=== PATIENT | male | born 1955 | race Caucasian/White ===

== ENCOUNTER → 2016-08-07 | Outpatient (REF) | payer MEDICARE, MEDICAID ==
[~2016-08-07] MED LIST: /ESOM40CA OR; /ESOM40CA PO; /HCTZ25TA PO; /RANI15TA PO; ACET650S3 PO; ADV100INH INH; ARTIDRO OP; BABY81CH OR; BISO10TA2 PO; BISO10TA6 PO; BISO5TAB54 PO; CALCCHW12 OR; CALCTAB68 PO; CETI10TA PO; DICY10CA2 OR; DIOV160T2 PO; DIOV160T5 OR; DOCU PO; DOXE25CA2 OR; DOXE25CA3 PO; FLEX10TA2 PO; FLUT50SP; GABA250S PO; GABA400C PO; GLIP10TA97 OR; GLUC1TAB6 PO; LOTE0.5O OU; MAGN400C2 PO; MAGN500T2 PO; MELOPOW PO; META800T82 PO; MULTCAP11 PO; MULTIVIT PO; NEUR300C PO; OXYC5TAB2 PO; PROAAER IN; PROC2.5C PR; RANI150C OR; REST0.05 OU; SALI0.653; SING10TA31 OR; SING5CHW PO; TRAM100T13 PO; TRAM50TA2 OR; TRIC145T19 PO; TUMS500C PO; TYLE325T5 PO; ULTR50TA PO; VENTAER IN; WARF10TA15 PO; XARE20TA PO; [UNRECOGNIZED DRUG - CODE] PO; [UNRECOGNIZED DRUG - CODE] PO; doc-q-lace PO; janumet PO; magnesium sulfate
== END ==
LOC: M LAB REF 14:48
PROVIDERS: ATTEND Internal Medicine Gastroenterology
DX: R19.7 Diarrhea, unspecified (principal)

== ENCOUNTER 2017-02-16 23:51 | Emergency (ER) | payer MEDICAID, MEDICARE ==
[~2017-02-16] VITALS: Ht 177.8 cm; Wt 96.4 kg
[2017-02-16 23:51] VITALS: BP 148/84
[2017-02-17] MEDS ORDERED: NORCO, ANEXSIA 5/325MG TABLET (HYDROcodone/ACETAMINOPHEN) PO ONE (01:00)
[2017-02-17 01:22] LABS: BASO % 0.3 % (0.0-1.0); EOS # 0.4 K/mm3 (0.0-0.50); EOS % 4.4 % (0.0-3.0); LARGE UNSTAINED CELL # 0.2 K/mm3 (0.0-0.4); LARGE UNSTAINED CELL % 1.5 % (0.0-4.0); LYMPH # 1.6 K/mm3 (1.5-4.5); LYMPH % 16.6 % (24.0-44.0); MEAN CORPUSCULAR HEMOGLOBIN 29.7 pg (27.0-33.0); MEAN CORPUSCULAR HGB CONC 33.9 g/dl (32.0-36.5); MEAN CORPUSCULAR VOLUME 87.8 fl (80.0-96.0); MONO # 0.6 K/mm3 (0.0-0.8); MONO % 5.9 % (0.0-5.0); NEUTROPHILS # 6.9 K/mm3 (1.8-7.7); NEUTROPHILS % 71.4 % (36.0-66.0); PLATELET COUNT, AUTOMATED 473 k/mm3 (150-450); RED CELL DISTRIBUTION WIDTH 12.6 % (11.5-14.5); WHITE BLOOD COUNT 9.7 K/mm3 (4.0-10.0)
[2017-02-17 01:37] LABS: ERYTHROCYTE SEDIMENTATION RATE 98 mm/hr (0-20)
[2017-02-17 01:46] LABS: ALBUMIN 3.6 GM/DL (3.2-5.2); ALBUMIN/GLOBULIN RATIO 0.73 (1.00-1.93); ALKALINE PHOSPHATASE 76 U/L (45-117); ALT/SGPT 22 U/L (12-78); ANION GAP 7 MEQ/L (8-16); AST/SGOT 8 U/L (15-37); BILIRUBIN,DIRECT < 0.1 MG/DL (0.0-0.2); BILIRUBIN,TOTAL 0.4 MG/DL (0.2-1.0); BLOOD UREA NITROGEN 26 MG/DL (7-18); CALCIUM LEVEL 9.6 MG/DL (8.8-10.2); CARBON DIOXIDE LEVEL 29 MEQ/L (21-32); CHLORIDE LEVEL 100 MEQ/L (98-107); CREATININE FOR GFR 1.04 MG/DL (0.70-1.30); GLOMERULAR FILTRATION RATE > 60.0 (>49); GLUCOSE, FASTING 233 MG/DL (80-110); POTASSIUM SERUM 3.7 MEQ/L (3.5-5.1); SODIUM LEVEL 136 MEQ/L (136-145); TOTAL PROTEIN 8.5 GM/DL (6.4-8.2)
[2017-02-17 01:59] LABS: MAGNESIUM LEVEL 1.7 MG/DL (1.8-2.4)
[2017-02-17] MEDS ORDERED: INDO50CA PO (02:01)
[2017-02-17] MEDS ORDERED: BENA25CA4 PO (02:07)
[2017-02-19 00:06] LABS: Lyme Disease IgG/IgM Antibodie <0.91 ISR (0.00-0.90); Lyme Disease IgM Ab Quantitati <0.80 index (0.00-0.79)
== END 2017-02-17 02:08 | disposition home or self-care (01) ==
LOC: M ED 23:51
DX: D64.9 Anemia, unspecified (principal); M25.50 Pain in unspecified joint; M79.1 Myalgia; R53.83 Other fatigue; Z79.899 Other long term (current) drug therapy; Z79.51 Long term (current) use of inhaled steroids; Z79.891 Long term (current) use of opiate analgesic; Z88.1 Allergy status to other antibiotic agents; Z88.5 Allergy status to narcotic agent; Z88.0 Allergy status to penicillin; Z88.2 Allergy status to sulfonamides

== ENCOUNTER → 2017-03-12 | Outpatient (REF) | payer MEDICARE ==
[~2017-03-12] MED LIST changes: +BENA25CA4 PO; +INDO50CA PO
== END ==
LOC: M LAB REF 12:27
PROVIDERS: ATTEND Internal Medicine
DX: M79.1 Myalgia (principal); Z11.59 Encounter for screening for other viral diseases; R79.82 Elevated C-reactive protein (CRP); M25.50 Pain in unspecified joint

== ENCOUNTER → 2017-04-03 | Outpatient (REF) | payer MEDICARE | LOC: M LAB REF 17:34 | PROVIDERS: ATTEND Internal Medicine | DX: M79.1 Myalgia (principal); R79.82 Elevated C-reactive protein (CRP); Z11.59 Encounter for screening for other viral diseases ==

== ENCOUNTER → 2017-05-28 | Outpatient (REF) | payer MEDICARE | LOC: M LAB REF 12:21 | PROVIDERS: ATTEND Internal Medicine | DX: R79.82 Elevated C-reactive protein (CRP) (principal) ==

== ENCOUNTER 2017-09-24 11:47 | Emergency (ER) | payer MEDICARE ==
[2017-09-24] MEDS: diazePAM 5 MG TAB PO (13:45)
[2017-09-24] MEDS: MORPHINE 2 MG/ML 1ML SYRINGE (J2270) IM (13:46)
== END 2017-09-24 15:00 | disposition home or self-care (01) ==
LOC: M ED 11:47
DX: M50.30 Other cervical disc degeneration, unspecified cervical region (principal); E11.9 Type 2 diabetes mellitus without complications; I10 Essential (primary) hypertension; M06.9 Rheumatoid arthritis, unspecified; F41.9 Anxiety disorder, unspecified; F33.9 Major depressive disorder, recurrent, unspecified; Z86.711 Personal history of pulmonary embolism; Z79.899 Other long term (current) drug therapy; Z79.51 Long term (current) use of inhaled steroids; Z88.0 Allergy status to penicillin; Z88.1 Allergy status to other antibiotic agents; Z88.2 Allergy status to sulfonamides; Z88.5 Allergy status to narcotic agent
CPT/HCPCS: J2270

== ENCOUNTER 2018-05-10 13:58 | Emergency (ER) | payer MEDICARE ==
[2018-05-10] MEDS: CLINDAMYCIN 150 MG CAP PO (15:23)
[2018-05-10] MEDS: ONDANSETRON 4 MG ORAL DISINTEGRATING TAB (Q0162 PER 1MG) PO (15:23)
== END 2018-05-10 15:25 | disposition home or self-care (01) ==
LOC: M ED 13:58
DX: K02.9 Dental caries, unspecified (principal); R51 Headache; I10 Essential (primary) hypertension; E11.9 Type 2 diabetes mellitus without complications; E78.00 Pure hypercholesterolemia, unspecified; K21.9 Gastro-esophageal reflux disease without esophagitis; K58.9 Irritable bowel syndrome, unspecified; F33.9 Major depressive disorder, recurrent, unspecified; F41.9 Anxiety disorder, unspecified
CPT/HCPCS: Q0162

== ENCOUNTER → 2018-05-18 | Outpatient (REF) | payer MEDICARE | LOC: M LAB REF 10:39 | DX: R19.7 Diarrhea, unspecified (principal) ==

== ENCOUNTER → 2018-05-21 | Outpatient (REF) | payer MEDICARE | LOC: M LAB REF 15:37 | DX: R19.7 Diarrhea, unspecified (principal) | CPT/HCPCS: 87493 ==

== ENCOUNTER → 2018-06-10 | Outpatient (REF) | payer MEDICARE ==
[2018-06-16 14:17] LABS: FATS NEUTRAL Normal (.); FATS TOTAL Normal (.); O+P EXAM Final report (.)
== END ==
LOC: M LAB REF 15:51
DX: R19.7 Diarrhea, unspecified (principal)
CPT/HCPCS: 87177

== ENCOUNTER → 2018-08-25 | Outpatient (REF) | payer MEDICARE ==
[~2018-08-25] MED LIST changes: +CLEO300C2 PO; +JANU50TA8 PO; +JARD1TAB PO; +LOSA100T50 PO; +MELO7.5T7; +METH2.5T48 PO; +MONT10TA2 PO; +NORCOTAB PO; +OMEG1CAP16 PO; +PRED5TA PO; +ROSU10TA5 PO; +VALI5TAB PO; +ZOFR4TAB14 PO
[2018-08-25 13:54] LABS: HEMOGLOBIN 10.9 g/dl (13.5-17.5); MEAN CORPUSCULAR HEMOGLOBIN 27.5 pg (27.0-33.0); MEAN CORPUSCULAR HGB CONC 31.1 g/dl (32.0-36.5); MEAN CORPUSCULAR VOLUME 88.2 fl (80.0-96.0); PLATELET COUNT, AUTOMATED 315 10^3/uL (150-450); RED BLOOD COUNT 3.97 10^6/uL (4.30-6.10); WHITE BLOOD COUNT 7.9 10^3/uL (4.0-10.0)
== END ==
LOC: M LAB REF 13:30
PROVIDERS: ATTEND Internal Medicine
DX: D64.9 Anemia, unspecified (principal)

== ENCOUNTER 2019-01-03 21:17 | Emergency (ER) | payer MEDICARE ==
[~2019-01-03] VITALS: Ht 177.8 cm; Wt 79.5 kg
[~2019-01-03 21:17] MED LIST changes: -/ESOM40CA OR; -/ESOM40CA PO; -/HCTZ25TA PO; -/RANI15TA PO; +HYDR-3644 PO; +HYDR-3715 PO; -INDO50CA PO; +INDO50CA11 PO; +NEXI1CAP3 OR; +NEXI1CAP3 PO; -NORCOTAB PO; +RANI1TAB17 PO; -ROSU10TA5 PO; +ROSU10TA6 PO
[2019-01-03 21:18] VITALS: BP 139/67
[2019-01-03] MEDS ORDERED: PROAAER10 (21:28)
[2019-01-03] MEDS ORDERED: BISO5TAB5 (21:28)
[2019-01-03] MEDS ORDERED: GLIP10TA6 (21:28)
[2019-01-03] MEDS ORDERED: MELO7.5T35 (21:28)
[2019-01-03] MEDS ORDERED: GABA600T4 (21:28)
[2019-01-03] MEDS ORDERED: NEXI40CA (21:28)
[2019-01-03] MEDS ORDERED: DOXE50CA (21:28)
[2019-01-03] MEDS ORDERED: FERR324T2 (21:28)
[2019-01-03] MEDS ORDERED: RANI150T14 (21:28)
[2019-01-03] MEDS ORDERED: QC A650T3 PO (22:35)
[2019-01-03] MEDS ORDERED: ACETAMINOPHEN 325 MG TAB PO ONE (22:45)
== END 2019-01-03 22:51 | disposition home or self-care (01) ==
LOC: M ED 21:17
DX: K02.9 Dental caries, unspecified (principal); K08.89 Other specified disorders of teeth and supporting structures; Z86.19 Personal history of other infectious and parasitic diseases; Z79.84 Long term (current) use of oral hypoglycemic drugs; Z79.899 Other long term (current) drug therapy; Z88.0 Allergy status to penicillin; Z88.2 Allergy status to sulfonamides; Z88.5 Allergy status to narcotic agent; Z88.1 Allergy status to other antibiotic agents; Z88.8 Allergy status to other drugs, medicaments and biological substances

== ENCOUNTER → 2019-02-26 | Outpatient (REF) | payer MEDICARE ==
[~2019-02-26] MED LIST changes: +BISO5TAB5; +DOXE50CA; +FERR324T2; +GABA600T4; +GLIP10TA6; -INDO50CA11 PO; +INDO50CA91 PO; +MELO7.5T35; +NEXI40CA; +PROAAER10; +QC A650T3 PO; +RANI150T14
[2019-02-26 15:55] LABS: BLOOD UREA NITROGEN 22 MG/DL (7-18); CALCIUM LEVEL 9.5 MG/DL (8.8-10.2); CARBON DIOXIDE LEVEL 29 MEQ/L (21-32); CHLORIDE LEVEL 105 MEQ/L (98-107); CHOLESTEROL LEVEL 157 MG/DL (<200); GLOMERULAR FILTRATION RATE > 60.0 (>49); GLUCOSE, FASTING 108 MG/DL (70-100); HDL CHOLESTEROL 47 MG/DL (>40); LDL CHOLESTEROL 54 MG/DL (<100); MAGNESIUM LEVEL 2.2 MG/DL (1.8-2.4); NON-HDL-C 110 MG/DL; POTASSIUM SERUM 4.9 MEQ/L (3.5-5.1); SODIUM LEVEL 139 MEQ/L (136-145); TRIGLYCERIDES LEVEL 278 MG/DL (<150)
[2019-02-26 16:04] LABS: BASO # 0.1 10^3/uL (0.0-0.2); BASO % 0.6 % (0.0-1.0); EOS % 0.3 % (0.0-3.0); HEMATOCRIT 40.8 % (42.0-52.0); HEMOGLOBIN 12.6 g/dl (13.5-17.5); LYMPH % 9.5 % (24.0-44.0); MEAN CORPUSCULAR HEMOGLOBIN 28.6 pg (27.0-33.0); MEAN CORPUSCULAR HGB CONC 30.9 g/dl (32.0-36.5); MEAN CORPUSCULAR VOLUME 92.7 fl (80.0-96.0); MONO # 0.6 10^3/uL (0.0-0.8); MONO % 5.4 % (0.0-5.0); NEUTROPHILS % 83.5 % (36.0-66.0); PLATELET COUNT, AUTOMATED 328 10^3/uL (150-450); WHITE BLOOD COUNT 10.7 10^3/uL (4.0-10.0)
[2019-02-26 16:23] LABS: HEMOGLOBIN A1c 8.8 %
[2019-02-26 16:24] LABS: MALB URINE SIEMENS 10.1 MG/L; MAU/CREAT RATIO 9.7 MCG/MG (0.0-30.0)
== END ==
LOC: M SFHCPLAZ 10:50
PROVIDERS: ATTEND Family Medicine
DX: E11.65 Type 2 diabetes mellitus with hyperglycemia (principal); I10 Essential (primary) hypertension; E78.00 Pure hypercholesterolemia, unspecified; Z86.2 Personal history of diseases of the blood and blood-forming organs and certain disorders involving the immune mechanism; K21.0 Gastro-esophageal reflux disease with esophagitis

== ENCOUNTER → 2019-03-03 | Outpatient (REF) | payer MEDICARE ==
[2019-03-03 12:57] LABS: BASO # 0.1 10^3/uL (0.0-0.2); BASO % 0.8 % (0.0-1.0); EOS # 0.1 10^3/uL (0.0-0.5); EOS % 1.1 % (0.0-3.0); HEMATOCRIT 40.7 % (42.0-52.0); LYMPH # 1.1 10^3/uL (1.5-5.0); LYMPH % 13.2 % (24.0-44.0); MEAN CORPUSCULAR HGB CONC 31.9 g/dl (32.0-36.5); MEAN CORPUSCULAR VOLUME 93.8 fl (80.0-96.0); MONO # 0.8 10^3/uL (0.0-0.8); MONO % 9.2 % (0.0-5.0); NEUTROPHILS # 6.4 10^3/uL (1.5-8.5); PLATELET COUNT, AUTOMATED 319 10^3/uL (150-450); RED BLOOD COUNT 4.34 10^6/uL (4.30-6.10); WHITE BLOOD COUNT 8.5 10^3/uL (4.0-10.0)
[2019-03-03 13:34] LABS: BILIRUBIN,DIRECT 0.1 MG/DL (0.0-0.2); BILIRUBIN,TOTAL 0.6 MG/DL (0.2-1.0); PERCENT SATURATION 9.4 % (19.7-50.0); TOTAL PROTEIN 7.6 GM/DL (6.4-8.2)
== END ==
LOC: M SFHCPLAZ 10:38
PROVIDERS: ATTEND Family Medicine
DX: D72.829 Elevated white blood cell count, unspecified (principal); D64.9 Anemia, unspecified

== ENCOUNTER → 2019-04-23 | Outpatient (CLI) | payer MEDICARE ==
[~2019-04-23] MED LIST changes: -BISO5TAB5; +BISO5TAB9
--- NOTE | 2019-04-23 11:23 | REP ---
MRI brain: 04/23/2019. Indication: Mental status change. Headache. Comparison: CT brain dated 07/21/2009. Technique: Multiplanar short and long TR sequences of the brain were obtained without IV Gadolinium. Findings: There are no areas of restricted diffusion. There is no intracranial mass effect or hydrocephalous. The large intracranial flow voids are unremarkable. Mild diffuse volume loss is present. No significant signal abnormalities are present within the brainstem or brain parenchyma. The midline structures, and craniocervical junction are unremarkable. Impression: No acute intracranial process. Mild diffuse volume loss. Electronically Signed by Kieran Jaquez DO 04/23/2019 11:14 A
== END ==
LOC: M PLARAD 07:35
PROVIDERS: ATTEND Student in an Organized Health Care Education/Training Program
DX: F22 Delusional disorders (principal)

== ENCOUNTER → 2019-04-28 | Outpatient (REF) | payer MEDICARE ==
[2019-04-28 11:19] LABS: HEMATOCRIT 39.7 % (42.0-52.0); HEMOGLOBIN 12.4 g/dl (13.5-17.5); MEAN CORPUSCULAR HEMOGLOBIN 29.8 pg (27.0-33.0); MEAN CORPUSCULAR HGB CONC 31.2 g/dl (32.0-36.5); MEAN CORPUSCULAR VOLUME 95.4 fl (80.0-96.0); PLATELET COUNT, AUTOMATED 268 10^3/uL (150-450); RED BLOOD COUNT 4.16 10^6/uL (4.30-6.10); WHITE BLOOD COUNT 6.3 10^3/uL (4.0-10.0)
[2019-04-28 11:24] LABS: BLOOD UREA NITROGEN 20 MG/DL (7-18); CALCIUM LEVEL 9.5 MG/DL (8.8-10.2); CARBON DIOXIDE LEVEL 27 MEQ/L (21-32); CHLORIDE LEVEL 106 MEQ/L (98-107); FERRITIN 56 NG/ML (26-388); GLOMERULAR FILTRATION RATE > 60.0 (>49); GLUCOSE, FASTING 177 MG/DL (70-100); IRON (FE) 45 UG/DL (65-175); PERCENT SATURATION 12.2 % (19.7-50.0); POTASSIUM SERUM 4.1 MEQ/L (3.5-5.1); SODIUM LEVEL 141 MEQ/L (136-145); TOTAL IRON BINDING CAPACITY 368 UG/DL (250-450)
== END ==
LOC: M SFHCPLAZ 08:55
PROVIDERS: ATTEND Family Medicine
DX: E11.65 Type 2 diabetes mellitus with hyperglycemia (principal); I10 Essential (primary) hypertension; Z86.2 Personal history of diseases of the blood and blood-forming organs and certain disorders involving the immune mechanism
CPT/HCPCS: 36415; 80048; 82728; 83036; 84466; 85027; G0463

== ENCOUNTER 2019-06-01 01:56 | Emergency (ER) | payer MEDICARE ==
[~2019-06-01] VITALS: Ht 175.3 cm; Wt 180.0 kg
[2019-06-01 01:57] VITALS: BP 132/81
[2019-06-01] MEDS ORDERED: metroNIDAZOLE (FLAGYL) 500 MG TAB PO ONE (05:00)
[2019-06-01] MEDS ORDERED: CIPROFLOXACIN 500 MG TAB PO ONE (05:00)
[2019-06-01] MEDS ORDERED: CIPR-249 PO (05:03)
[2019-06-01] MEDS ORDERED: FLAG500T PO (05:03)
== END 2019-06-01 05:20 | disposition home or self-care (01) ==
LOC: M ED 01:56
DX: S01.81XA Laceration without foreign body of other part of head, initial encounter (principal); W54.0XXA Bitten by dog, initial encounter; Y92.018 Other place in single-family (private) house as the place of occurrence of the external cause; I10 Essential (primary) hypertension; E11.9 Type 2 diabetes mellitus without complications; E78.5 Hyperlipidemia, unspecified; Z79.899 Other long term (current) drug therapy; Z88.0 Allergy status to penicillin; Z88.1 Allergy status to other antibiotic agents; Z88.2 Allergy status to sulfonamides; Z88.5 Allergy status to narcotic agent

== ENCOUNTER 2019-06-07 21:45 | Emergency (ER) | payer MEDICARE ==
[~2019-06-07] VITALS: Ht 175.3 cm; Wt 82.7 kg
[~2019-06-07 21:45] MED LIST changes: +CIPR-249 PO; +FLAG500T PO
[2019-06-07 21:46] VITALS: BP 136/78
== END 2019-06-07 23:40 | disposition home or self-care (01) ==
LOC: M ED 21:45
DX: Z48.02 Encounter for removal of sutures (principal)

== ENCOUNTER 2019-09-12 01:18 | Emergency (ER) | payer MEDICARE ==
[~2019-09-12] VITALS: Ht 177.8 cm; Wt 85.6 kg
[~2019-09-12 01:18] MED LIST changes: +BISO5TAB14; -BISO5TAB9; -MONT10TA2 PO; +MONT10TA4 PO
[2019-09-12 01:19] VITALS: BP 130/71
[2019-09-12] MEDS ORDERED: ONDANSETRON 4MG/2ML VIAL (J2405) As Ordered ONE (02:37)
[2019-09-12] MEDS ORDERED: ONDANSETRON 4MG/2ML VIAL (J2405) IV ONE (02:45)
[2019-09-12 03:08] LABS: BASO # 0.1 10^3/uL (0.0-0.2); BASO % 0.5 % (0.0-1.0); EOS # 0.3 10^3/uL (0.0-0.5); EOS % 1.5 % (0.0-3.0); HEMATOCRIT 41.2 % (42.0-52.0); HEMOGLOBIN 13.4 g/dl (13.5-17.5); LYMPH # 0.9 10^3/uL (1.5-5.0); LYMPH % 4.7 % (24.0-44.0); MEAN CORPUSCULAR HEMOGLOBIN 30.2 pg (27.0-33.0); MEAN CORPUSCULAR HGB CONC 32.5 g/dl (32.0-36.5); MEAN CORPUSCULAR VOLUME 92.8 fl (80.0-96.0); MONO # 1.4 10^3/uL (0.0-0.8); MONO % 7.7 % (0.0-5.0); NEUTROPHILS # 15.7 10^3/uL (1.5-8.5); NEUTROPHILS % 85.1 % (36.0-66.0); PLATELET COUNT, AUTOMATED 295 10^3/uL (150-450); RED BLOOD COUNT 4.44 10^6/uL (4.30-6.10); WHITE BLOOD COUNT 18.5 10^3/uL (4.0-10.0)
[2019-09-12] MEDS ORDERED: ISOVUE-370 76% 100ML VIAL (Q9967) As Ordered ONE (03:28)
[2019-09-12] MEDS ORDERED: METOCLOPRAMIDE INJ 10MG/2ML VIAL (J2765) IV ONE (03:30)
[2019-09-12] MEDS ORDERED: GI COCKTAIL 50ML BTL(HYOSCYAMINE/MAALOX/LIDOCAINE VISCOUS)(1:3:1) PO ONE (03:30)
[2019-09-12] MEDS ORDERED: KETOROLAC 30 MG/ML VIAL (J1885) IV ONE (03:30)
[2019-09-12 03:33] LABS: ALT/SGPT 27 U/L (12-78); BILIRUBIN,DIRECT 0.2 MG/DL (0.0-0.2); BILIRUBIN,TOTAL 0.8 MG/DL (0.2-1.0); CK-MB VALUE MASS < 1.0 NG/ML (<3.6); CPK CREATINE PHOSPHOKINASE 31 U/L (39-308); LIPASE 96 U/L (73-393); MB/CK RELATIVE INDEX 3.23 (< OR =4); TOTAL PROTEIN 7.7 GM/DL (6.4-8.2); TROPONIN I < 0.02 NG/ML (< 0.10)
--- NOTE | 2019-09-12 04:26 | REPVR ---
PROCEDURE INFORMATION: Exam: CT Abdomen And Pelvis With Contrast Exam date and time: 09/12/2019 3:22 AM Age: 64 years old Clinical indication: Abdominal pain; Localized; Lower; Additional info: Generalized abd pain, vomiting TECHNIQUE: Imaging protocol: Computed tomography of the abdomen and pelvis with intravenous contrast. Radiation optimization: All CT scans at this facility use at least one of these dose optimization techniques: automated exposure control; mA and/or kV adjustment per patient size (includes targeted exams where dose is matched to clinical indication); or iterative reconstruction. Contrast material: ISO; Contrast volume: 100 ml; Contrast route: AC; COMPARISON: CT ABD PELVIS WITH CONTRAST 04/20/2014 9:36 PM FINDINGS: Lungs: Bilateral emphysematous changes with mild edema in the lungs. Pleural space: Pleural thickening with calcification in the right lateral chest. Mediastinum: Small hiatal hernia. Liver: Normal. No mass. Gallbladder and bile ducts: Normal. No calcified stones. No ductal dilation. Pancreas: Normal. No ductal dilation. Spleen: Normal. No splenomegaly. Adrenals: Normal. No mass. Kidneys and ureters: Bilateral renal cysts, Largest 1 on the left is measuring up to 16 mm and on the right side measuring up to 20 mm. Small 10 mm lesion in the upper pole of the right kidney may represent proteinaceous cyst, follow-up with ultrasound in 3 months is recommended. Nonobstructing 3 mm stone in the interpolar region of the right kidney. Stomach and bowel: Moderate fecal loading and fluid in the colon. Proximal small bowel loops are unremarkable. Mid and distal small bowel loops are prominent and filled with fluid. Findings may represent enterocolitis, however, early small bowel obstruction cannot be completely excluded, follow-up is recommended as clinically indicated. Appendix: Appendix is not seen likely surgically absent. Intraperitoneal space: Unremarkable. No free air. No significant fluid collection. Vasculature: Atherosclerosis. Lymph nodes: Unremarkable. No enlarged lymph nodes. Bladder: Unremarkable as visualized. Reproductive: Unremarkable as visualized. Bones/joints: Left hip arthroplasty with intact surgical hardware. Diffuse demineralization of the bones with degenerative changes. Surgical hardware in thoracolumbar spine. Scoliosis of the thoracolumbar spine. Soft tissues: Fat containing bilateral inguinal hernias. Small fat containing umbilical hernia. IMPRESSION: Moderate fecal loading and fluid in the colon. Proximal small bowel loops are unremarkable. Mid and distal small bowel loops are prominent and filled with fluid. Findings may represent enterocolitis, however, early small bowel obstruction cannot be completely excluded, follow-up is recommended as clinically indicated. Electronically signed by: Guerita Romo On 09/12/2019 04:25:52 AM
[2019-09-12] MEDS ORDERED: MAGNESIUM CITRATE 300 ML BTL PO ONE (05:30)
--- NOTE | 2019-09-13 07:21 | ECGEPIP ---
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
== END 2019-09-12 06:00 | disposition home or self-care (01) ==
LOC: M ED 01:18
DX: K52.9 Noninfective gastroenteritis and colitis, unspecified (principal); K22.70 Barrett's esophagus without dysplasia; Z79.899 Other long term (current) drug therapy; Z88.8 Allergy status to other drugs, medicaments and biological substances; Z88.0 Allergy status to penicillin; Z88.2 Allergy status to sulfonamides; Z88.1 Allergy status to other antibiotic agents; Z88.5 Allergy status to narcotic agent
CPT/HCPCS: 74177; 80047; 80076; 82550; 82553; 83690; 84484; 85025; 93005; 93041; 96374; 96375; 99285; J1885; J2405; J2765; Q9967

== ENCOUNTER → 2019-09-27 | Outpatient (CLI) | payer MEDICARE ==
--- NOTE | 2019-09-27 11:01 | REP ---
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 Technique: 1.1 mCi of technetium-99m sulfur colloid was ingested in two scrambled eggs and 6 ounces of water and sequential anterior and posterior images are acquired for an 89-minute imaging observation period. Regions of interest are drawn around the stomach to plot gastric emptying. Scintigraphic findings: Expected T1/2 is 90 minutes. Six % emptying is observed in this patient during the 89-minute imaging observation period, for a calculated T1/2 in this patient of 785 minutes. Impression: Markedly delayed gastric emptying. Electronically Signed by David Marlow MD 09/27/2019 10:53 A
== END ==
LOC: M RAD 08:19
PROVIDERS: ATTEND Student in an Organized Health Care Education/Training Program
DX: Z87.19 Personal history of other diseases of the digestive system (principal)
CPT/HCPCS: 78264; A9541

== ENCOUNTER → 2019-11-23 | Outpatient (REF) | payer MEDICARE ==
[~2019-11-23] MED LIST changes: +DOXE50CA PO; +JARD1TAB3 PO; +QUET1TAB7 PO
[2019-11-23 11:58] LABS: APPEARANCE, URINE CLEAR (CLEAR); BACTERIA, URINE AUTO NEGATIVE (NEGATIVE); BILIRUBIN, URINE AUTO NEGATIVE (NEGATIVE); BLOOD, URINE BLOOD NEGATIVE (NEGATIVE); COLOR, URINE YELLOW (YELLOW); GLUCOSE, URINE (UA) AUTO 3+ mg/dL (NEGATIVE); KETONE, URINE AUTO NEGATIVE (NEGATIVE); LEUKOCYTE ESTERASE, URINE AUTO NEGATIVE (NEGATIVE); NITRITE, URINE AUTO NEGATIVE (NEGATIVE); PROTEIN, URINE AUTO NEGATIVE (NEGATIVE); RBC, URINE AUTO 0 /HPF (0-3); SQUAMOUS EPITHELIAL CELL UR AU 0 /HPF (0-6); UROBILINOGEN, URINE AUTO 0.2 mg/dL (0.0-2.0); WBC, URINE AUTO 0 /HPF (0-3)
[2019-11-23 12:02] LABS: HEMATOCRIT 39.1 % (42.0-52.0); HEMOGLOBIN 12.8 g/dl (13.5-17.5); MEAN CORPUSCULAR HEMOGLOBIN 31.1 pg (27.0-33.0); MEAN CORPUSCULAR HGB CONC 32.7 g/dl (32.0-36.5); MEAN CORPUSCULAR VOLUME 94.9 fl (80.0-96.0); PLATELET COUNT, AUTOMATED 301 10^3/uL (150-450); RED BLOOD COUNT 4.12 10^6/uL (4.30-6.10); WHITE BLOOD COUNT 9.8 10^3/uL (4.0-10.0)
[2019-11-23 12:11] LABS: ALT/SGPT 30 U/L (12-78); BILIRUBIN,TOTAL 0.6 MG/DL (0.2-1.0); BLOOD UREA NITROGEN 19 MG/DL (7-18); CALCIUM LEVEL 9.5 MG/DL (8.8-10.2); CARBON DIOXIDE LEVEL 29 MEQ/L (21-32); CHLORIDE LEVEL 102 MEQ/L (98-107); CREATININE FOR GFR 0.93 MG/DL (0.70-1.30); FERRITIN 45 NG/ML (26-388); GLOMERULAR FILTRATION RATE > 60.0 (>49); GLUCOSE, FASTING 189 MG/DL (70-100); IRON (FE) 114 UG/DL (65-175); PERCENT SATURATION 34.5 % (19.7-50.0); POTASSIUM SERUM 4.6 MEQ/L (3.5-5.1); SODIUM LEVEL 140 MEQ/L (136-145); TOTAL IRON BINDING CAPACITY 330 UG/DL (250-450); TOTAL PROTEIN 7.4 GM/DL (6.4-8.2)
[2019-11-23 14:00] LABS: HEMOGLOBIN A1c 9.2 %
== END ==
LOC: M SFHCPLAZ 09:05
PROVIDERS: ATTEND Family Medicine
DX: D50.9 Iron deficiency anemia, unspecified (principal); I10 Essential (primary) hypertension; E78.2 Mixed hyperlipidemia; E11.65 Type 2 diabetes mellitus with hyperglycemia; R30.0 Dysuria
CPT/HCPCS: 36415; 80053; 81001; 82728; 83036; 83550; 85027; 87086; G0463

== ENCOUNTER 2019-11-26 15:57 | Emergency (ER) | payer MEDICARE ==
[~2019-11-26] VITALS: Ht 177.8 cm; Wt 89.5 kg
[~2019-11-26 15:57] MED LIST changes: -DOXE50CA PO; -JARD1TAB3 PO; -QUET1TAB7 PO
[2019-11-26] MEDS ORDERED: QUET1TAB7 PO (16:17)
[2019-11-26] MEDS ORDERED: JARD1TAB3 PO (16:17)
[2019-11-26] MEDS ORDERED: DOXE50CA PO (16:17)
[2019-11-26 17:11] LABS: VENOUS BASE EXCESS -0.9 (-2.0-2.0); VENOUS O2 SATURATION 81.5 % (60.0-80.0); VENOUS PARTIAL PRESSURE CO2 46.5 mmHg (38.0-50.0); VENOUS PARTIAL PRESSURE O2 48.3 mmHg (30.0-50.0); VENOUS PH 7.349 UNITS (7.330-7.430); VENOUS STANDARD HCO3 23.4 MEQ/L; VENOUS TOTAL CO2 26.5 MEQ/L (24.0-28.0)
[2019-11-26 17:14] LABS: BASO # 0.1 10^3/uL (0.0-0.2); BASO % 0.8 % (0.0-1.0); EOS # 0.2 10^3/uL (0.0-0.5); EOS % 2.6 % (0.0-3.0); HEMATOCRIT 34.2 % (42.0-52.0); HEMOGLOBIN 11.2 g/dl (13.5-17.5); LYMPH % 13.4 % (24.0-44.0); MEAN CORPUSCULAR HEMOGLOBIN 30.5 pg (27.0-33.0); MEAN CORPUSCULAR HGB CONC 32.7 g/dl (32.0-36.5); MEAN CORPUSCULAR VOLUME 93.2 fl (80.0-96.0); MONO # 0.7 10^3/uL (0.0-0.8); MONO % 8.5 % (0.0-5.0); NEUTROPHILS # 5.6 10^3/uL (1.5-8.5); PLATELET COUNT, AUTOMATED 269 10^3/uL (150-450); RED BLOOD COUNT 3.67 10^6/uL (4.30-6.10); WHITE BLOOD COUNT 7.6 10^3/uL (4.0-10.0)
[2019-11-26 17:45] VITALS: BP 137/77
[2019-11-26 17:54] LABS: ALBUMIN 3.3 GM/DL (3.2-5.2); ALT/SGPT 38 U/L (12-78); BILIRUBIN,DIRECT 0.1 MG/DL (0.0-0.2); BILIRUBIN,TOTAL 0.3 MG/DL (0.2-1.0); BLOOD UREA NITROGEN 16 MG/DL (7-18); CALCIUM LEVEL 8.4 MG/DL (8.8-10.2); CARBON DIOXIDE LEVEL 25 MEQ/L (21-32); CHLORIDE LEVEL 107 MEQ/L (98-107); CK-MB VALUE MASS 1.8 NG/ML (<3.6); CPK CREATINE PHOSPHOKINASE 50 U/L (39-308); CREATININE FOR GFR 1.15 MG/DL (0.70-1.30); GLOMERULAR FILTRATION RATE > 60.0 (>49); GLUCOSE, FASTING 229 MG/DL (70-100); POTASSIUM SERUM 3.7 MEQ/L (3.5-5.1); SODIUM LEVEL 142 MEQ/L (136-145); THYROID STIMULATING HORMONE 0.208 uIU/ML (0.358-3.740); TOTAL PROTEIN 6.5 GM/DL (6.4-8.2); TROPONIN I < 0.02 NG/ML (< 0.10)
[2019-11-26 18:46] LABS: FREE THYROXINE INDEX 2.1 % (1.4-3.8); T UPTAKE 33 % (33-40); THYROXINE (T4) 6.3 UG/DL (4.5-12.0)
--- NOTE | 2019-11-27 00:20 | ECGEPIP ---
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
--- NOTE | 2019-11-27 11:05 | REP ---
CT BRAIN WITHOUT CONTRAST: HISTORY: Altered mental status. Comparison head CT study, July 21, 2009. CT FINDINGS: Digital preliminary county nurse radiograph is unremarkable. There is minimal vascular calcification in the distal internal carotid arteries. The visualized paranasal sinuses are clear. No intraorbital abnormality is seen. The lateral, third, and fourth ventricles are normal in position and configuration. There is minimal generalized volume loss. There is no evidence of intracranial hemorrhage. No evidence of acute infarction is seen. No mass, extra-axial fluid collection, or midline shift is seen. IMPRESSION: Minimal vascular calcification and volume loss. No acute intracranial abnormality. Electronically Signed by David Marlow MD 11/28/2019 07:43 P
--- NOTE | 2019-11-27 12:14 | REP ---
CHEST, SINGLE VIEW: Single view of the chest is performed and compared to prior study of 04/25/2014. There is chronic pleural and parenchymal scarring in the right base, unchanged. No acute infiltrate is seen. Heart and mediastinum are unchanged. There is calcification of the thoracic aorta. There are metallic rods in the thoracic spine. IMPRESSION: No acute pulmonary disease. Stable chronic changes. Electronically Signed by Skip Gallagher MD 11/27/2019 09:34 P
[2019-11-30 12:07] LABS: OSMOLALITY SERUM 298 mOsmol/kg (280-301)
== END 2019-11-26 18:42 | disposition home or self-care (01) ==
LOC: M ED 15:57
DX: R53.83 Other fatigue (principal); F22 Delusional disorders; I10 Essential (primary) hypertension; E11.9 Type 2 diabetes mellitus without complications; E78.5 Hyperlipidemia, unspecified; J45.909 Unspecified asthma, uncomplicated; K22.70 Barrett's esophagus without dysplasia; Z86.718 Personal history of other venous thrombosis and embolism; Z98.1 Arthrodesis status; Z88.0 Allergy status to penicillin; Z88.1 Allergy status to other antibiotic agents; Z88.2 Allergy status to sulfonamides; Z79.899 Other long term (current) drug therapy; Z79.2 Long term (current) use of antibiotics; Z79.84 Long term (current) use of oral hypoglycemic drugs

== ENCOUNTER → 2019-12-16 | Outpatient (REF) | payer MEDICARE ==
[~2019-12-16] MED LIST changes: +DOXE50CA PO; +JARD1TAB3 PO; +QUET1TAB7 PO
== END ==
LOC: M SFHCPLAZ 16:47
PROVIDERS: ATTEND Physician Assistant Medical
DX: J02.9 Acute pharyngitis, unspecified (principal)
CPT/HCPCS: 87070; 87205; 87486; 87581; 87633; 87798; 87880; G0463

== ENCOUNTER → 2020-03-17 | Outpatient (CLI) | payer MEDICARE ==
--- NOTE | 2020-03-30 13:07 | REPPI ---
RIGHT ANKLE SERIES: 4-VIEWS HISTORY: Right ankle pain. Injury in a fall six weeks prior. COMPARISON: None. FINDINGS: Four views of the right ankle demonstrate an intact ankle mortise. There is medial malleolar spurring and some vascular calcification. There is Achilles and plantar calcaneal spurring. A small well-corticated ossicle is seen adjacent to the medial malleolus. This is not felt to be an acute fracture. There is mild soft tissue swelling about the medial aspect of the distal calf. IMPRESSION: No acute bony abnormality. Some spurring. Small accessory ossicle adjacent to the medial malleolus. MTDD
== END ==
LOC: M PLAIMG 10:46
PROVIDERS: ATTEND Physician Assistant
DX: M77.31 Calcaneal spur, right foot (principal); M25.771 Osteophyte, right ankle; M25.571 Pain in right ankle and joints of right foot; Z91.81 History of falling; Z79.899 Other long term (current) drug therapy
CPT/HCPCS: 73610; 87086; G0463

== ENCOUNTER → 2020-06-05 | Outpatient (REF) | payer MEDICARE ==
[~2020-06-05] MED LIST changes: -MONT10TA4 PO; +MONT5TAB2 PO
[2020-06-05 13:56] LABS: APPEARANCE, URINE CLEAR (CLEAR); BACTERIA, URINE AUTO NEGATIVE (NEGATIVE); BILIRUBIN, URINE AUTO NEGATIVE (NEGATIVE); BLOOD, URINE BLOOD NEGATIVE (NEGATIVE); COLOR, URINE YELLOW (YELLOW); GLUCOSE, URINE (UA) AUTO 3+ mg/dL (NEGATIVE); KETONE, URINE AUTO NEGATIVE (NEGATIVE); LEUKOCYTE ESTERASE, URINE AUTO NEGATIVE (NEGATIVE); MUCUS, URINE SMALL (NEGATIVE); NITRITE, URINE AUTO NEGATIVE (NEGATIVE); PROTEIN, URINE AUTO NEGATIVE (NEGATIVE); RBC, URINE AUTO 0 /HPF (0-3); SQUAMOUS EPITHELIAL CELL UR AU 0 /HPF (0-6); UROBILINOGEN, URINE AUTO 0.2 mg/dL (0.0-2.0); WBC, URINE AUTO 0 /HPF (0-3)
[2020-06-05 14:29] LABS: ALBUMIN 3.6 GM/DL (3.2-5.2); ALT/SGPT 41 U/L (12-78); BILIRUBIN,TOTAL 0.4 MG/DL (0.2-1.0); BLOOD UREA NITROGEN 17 MG/DL (7-18); CALCIUM LEVEL 9.3 MG/DL (8.8-10.2); CARBON DIOXIDE LEVEL 29 MEQ/L (21-32); CHLORIDE LEVEL 105 MEQ/L (98-107); CREATININE FOR GFR 1.02 MG/DL (0.70-1.30); GLOMERULAR FILTRATION RATE > 60.0 (>49); GLUCOSE, FASTING 221 MG/DL (70-100); POTASSIUM SERUM 4.7 MEQ/L (3.5-5.1); SODIUM LEVEL 138 MEQ/L (136-145); THYROID STIMULATING HORMONE 0.431 uIU/ML (0.358-3.740); TOTAL PROTEIN 6.9 GM/DL (6.4-8.2)
[2020-06-05 14:30] LABS: VITAMIN B12 LEVEL 535 PG/ML (247-911)
[2020-06-05 14:44] LABS: CREATININE, URINE 38.7 MG/DL; MAU/CREAT RATIO 20.6 MCG/MG (0.0-30.0)
[2020-06-05 15:00] LABS: HEMOGLOBIN A1c 9.2 %
== END ==
LOC: M SFHCPLAZ 09:14
PROVIDERS: ATTEND Family Medicine
DX: E11.65 Type 2 diabetes mellitus with hyperglycemia (principal); R82.90 Unspecified abnormal findings in urine; L29.9 Pruritus, unspecified; G62.9 Polyneuropathy, unspecified
CPT/HCPCS: 36415; 80053; 81001; 82043; 82607; 83036; 84443; 87088; 87186; G0463

== ENCOUNTER → 2020-06-21 | Outpatient (CLI) | payer SELFPAY | LOC: M LABSMTC 13:15 | PROVIDERS: ATTEND Pediatrics | DX: Z20.828 Contact with and (suspected) exposure to other viral communicable diseases (principal) ==

== ENCOUNTER → 2020-07-13 | Outpatient (CLI) | payer MEDICARE ==
--- NOTE | 2020-07-13 10:34 | REPVR ---
PROCEDURE INFORMATION: Exam: CT Lumbar Spine Without Contrast Exam date and time: 07/13/2020 9:31 AM Age: 65 years old Clinical indication: Low back pain; Additional info: Lumbar spondylosis TECHNIQUE: Imaging protocol: Computed tomography images of the lumbar spine without contrast. Radiation optimization: All CT scans at this facility use at least one of these dose optimization techniques: automated exposure control; mA and/or kV adjustment per patient size (includes targeted exams where dose is matched to clinical indication); or iterative reconstruction. COMPARISON: No relevant prior studies available. FINDINGS: Vertebrae: There are lower thoracic Bryant rods. Exaggeration of the lumbar lordosis. Slight degenerative retrolisthesis of L2 on L3, L3 on L4 and L4 on L5. Mild lumbar levoconvex scoliosis. No acute fracture seen. Disc height loss and spondylosis is moderate at L3-L4, [id number] elsewhere. L1-L2: Disc osteophyte complex, facet arthropathy and ligamentum flavum buckling causing mild central spinal stenosis. No significant foraminal stenoses. L2-L3: Retrolisthesis disc osteophyte and ligamentum flavum buckling causing moderate to severe central spinal stenosis. Severe right and left neural foraminal stenoses. L3-L4: Retrolisthesis, disc osteophyte complex and facet arthropathy prior laminectomy prevents high-grade central spine. There is a mild to moderate residual central spinal canal stenosis, more a transverse thecal sac narrowing. Severe left and moderate to severe right neural foraminal stenoses. L4-L5: Retrolisthesis disc osteophyte facet arthropathy and ligamentum flavum buckling. In spite of prior laminectomy there is severe central spinal canal stenosis. Severe bilateral neural foraminal stenoses. L5-S1: Disc osteophyte complex and facet arthropathy. The central spinal canal patent. Moderate to severe left and moderate right neural foraminal stenoses. Other bones/joints: Post graft harvest changes of the right iliac wing. Gallbladder and bile ducts: There is a gallstone. Kidneys and ureters: Bilateral simple cysts of the visualized portions of the kidneys. A right kidney cyst measures 2.4 cm. No specific follow-up is indicated for this. The right kidney demonstrates a nonobstructing calculus. Vasculature: The aorta demonstrates atherosclerosis. Soft tissues: Unremarkable. IMPRESSION: 1. High-grade central spinal canal stenoses at L2-L3 and L4-L5, present to a lesser extent elsewhere. 2. High-grade multilevel neural foraminal, detailed above. COMMENTS: Consistent with the [employer]'s Incidental Findings Committee white paper (J Am Andie Radiol 2018): Any incidental renal lesion less than 1 cm or classified as too small to characterize, or any incidental cystic renal lesion characterized as simple-appearing, is likely benign. No follow-up imaging is recommended for these lesions per consensus recommendations based on imaging criteria. Electronically signed by: Stacey Hsu On 07/13/2020 10:33:57 AM
--- NOTE | 2020-07-13 14:16 | REP ---
INDICATION: LUMBAR SPONDYLOSIS. COMPARISON: Chest 11/26/2019 in 04/25/2014. TECHNIQUE: Three AP and lateral views obtained. FINDINGS: There is no acute compression fracture. There is accentuation of the thoracic kyphosis. There is diffuse calcification of the anterior longitudinal ligament. There is moderate narrowing of the thoracic disc spaces with mild subchondral sclerosis. There is moderate curvature of the thoracolumbar spine convex to the right with the apex of the curvature at about T11. Bryant rods again are visualized and appear unchanged in position extending from about T4 to L1. IMPRESSION: Stable Bryant rods. Stable curvature of the spine with diffuse disc space narrowing and accentuated thoracic kyphosis. <Electronically signed by Skip Gallagher > 07/13/20 [id number]
--- NOTE | 2020-07-13 14:28 | REP ---
INDICATION: LUMBAR SPONDYLOSIS. COMPARISON: 01/27/2013. TECHNIQUE: Two AP and lateral views obtained. FINDINGS: There is no compression fracture or malalignment. There is normal lumbar lordosis. There are large spurs on the left at L1 and L2 and as well as on the right at L2 through L4, with moderate diffuse spurring elsewhere. There is mild disc space narrowing and subchondral sclerosis at all levels with a more moderate degree of disc space narrowing at L 3-4. There is diffuse sclerosis and spurring at the posterior facet joints. A right Bryant gabbi extends to the T12 level and a left Bryant gabbi extends to the L1 level. Posterior elements appear intact. There is a total left hip prosthesis. IMPRESSION: Arthritic changes appears similar to the prior exam. No fracture or dislocation. <Electronically signed by Skip Gallagher > 07/13/20 [id number]
== END ==
LOC: M RAD 09:12
PROVIDERS: ATTEND Neurological Surgery
DX: M47.816 Spondylosis without myelopathy or radiculopathy, lumbar region (principal)

== ENCOUNTER → 2020-07-14 | Outpatient (CLI) | payer MEDICARE ==
--- NOTE | 2020-07-14 12:14 | REPVR ---
PROCEDURE INFORMATION: Exam: MR Lumbar Spine Without Contrast. Exam date and time: 07/14/2020 11:24 AM Age: 65 years old Clinical indication: Low back pain; Prior surgery; Surgery date: 6+ months; Surgery type: Bryant rods in 1979; Additional info: Lumbar spondylosis TECHNIQUE: Imaging protocol: Multiplanar magnetic resonance images of the lumbar spine without intravenous contrast. COMPARISON: CT Spine, lumbar w/o contrast 07/13/2020 9:33 AM FINDINGS: Vertebrae: There are Bryant rods with laminar focus, incompletely imaged. There is a pronounced lumbar levoscoliosis. There is 4 mm of grade 1 retrolisthesis of L2 with respect to L3, L3 with respect to L4, L4 with respect to L5 and L5 with respect to S1. Spinal cord: Normal signal. No cord compression. L1-L2: There is diffuse disc bulging. There is moderate facet hypertrophy. There is mild canal stenosis. The neural foramina are patent. L2-L3: There are laminectomy changes. There is diffuse disc bulging/uncovering related to listhesis. There is moderate facet hypertrophy. There is moderate bilateral neural foraminal narrowing. There is mild canal stenosis. L3-L4: There are laminectomy changes. There is disc bulging/uncovering related to listhesis. There is moderate facet hypertrophy. There is moderate to severe bilateral neural foraminal narrowing. There is mild canal stenosis. L4-L5: There are laminectomy changes. There is disc bulging/uncovering related to listhesis. There is moderate to severe facet hypertrophy. There is severe canal stenosis, with a residual diameter 5 mm. There is moderate bilateral neural foraminal narrowing. L5-S1: There is shallow disc bulging. There is mild facet hypertrophy. There is [id number] right and moderate to severe left neural foraminal narrowing. Soft tissues: Unremarkable. Other: There are bilateral renal cysts. IMPRESSION: Degenerative disc disease and spondylosis in a background of levoscoliosis. Changes contribute to multilevel moderate to severe neural foraminal narrowing. There is multilevel acquired canal stenosis, most pronounced at L4/5, where it is severe. Electronically signed by: Leticia Kwong On 07/14/2020 12:13:47 PM
== END ==
LOC: M PLARAD 09:57
PROVIDERS: ATTEND Neurological Surgery
DX: M47.816 Spondylosis without myelopathy or radiculopathy, lumbar region (principal)

== ENCOUNTER 2020-08-17 14:49 | Emergency (ER) | payer MEDICARE ==
[~2020-08-17] VITALS: Ht 177.8 cm; Wt 81.8 kg
[~2020-08-17 14:49] MED LIST changes: +MONT10TA10 PO; -MONT5TAB2 PO; -QUET1TAB7 PO; +QUET25TA3 PO
[2020-08-17] MEDS ORDERED: TAMS1CAP17 (15:03)
[2020-08-17] MEDS ORDERED: TOUJ1.2I (15:03)
[2020-08-17] MEDS ORDERED: KETOROLAC 30 MG/ML 1ML VIAL IV ONE (16:45)
[2020-08-17] MEDS ORDERED: diazePAM 10MG/2ML SYRINGE (J3360 PER 5MG) IM ONE (16:45)
--- NOTE | 2020-08-17 16:59 | REP ---
INDICATION: fall. COMPARISON: Comparison CT study of the cervical spine 24 September 2017.. TECHNIQUE: Helical scanning is acquired and overlapping 2 mm high resolution axial images were generated and reviewed at bone and soft tissue window settings. Coronal and sagittal multiplanar re-formations images are generated. FINDINGS: There is no evidence of cervical spine element fracture. No skull base fracture is seen. Cervical vertebral body heights are preserved. Alignment is normal. Facet joints are normally aligned bilaterally at each cervical level on multiplanar re-formations images. There is no evidence of intraspinal or paraspinal hematoma. No extra vertebral abnormality is seen. There are degenerative disc changes throughout the cervical spine C2-3 through C6-7. These are unchanged from the 2018 prior study. There is a minimal levoconvex curvature in the thoracic spine on the coronal multiplanar re-formation images. There is a partially calcified central disc protrusion at C3-4 which appears to compress the thecal sac somewhat. Similarly, there is a centrally calcified focal disc protrusion at C4-5. These are unchanged from the comparison study. C4-5 spinal stenosis is noted. At C5-6, there is posterior osteophytic ridging and diffuse disc bulging centrally. This is unchanged. IMPRESSION: No fracture or other traumatic abnormality is noted. Diffuse degenerative disc and facet changes. There is central canal stenosis at C3-4 and C4-5 related to central disc protrusions unchanged from the prior study.. <Electronically signed by Oliver Marlow > 08/17/20 [id number]
[2020-08-17] MEDS ORDERED: KETOROLAC 60MG 2ML VIAL IM ONE (17:00)
--- NOTE | 2020-08-17 17:03 | REP ---
INDICATION: fall. COMPARISON: Comparison CT study is from 20 April 2014.. TECHNIQUE: Helical scanning is acquired. 4 mm axial images re-formatted. Coronal and sagittal MPR images are provided. FINDINGS: There is a moderate levoconvex scoliotic curvature. A left hip replacement is seen in place. Bryant stabilization rods are noted in the thoracic spine terminating in the upper lumbar spine as before. Lumbar vertebral body heights are preserved. No fracture or collapse is seen. There is diffuse degenerative disc disease at each lumbar level is essentially unchanged from the 2014 prior study. There is a right paravertebral bridging osteophyte at L3-4. No sacral or posterior element fracture is seen. Osteoarthritic facet disease is noted diffusely in the lumbar spine unchanged. The posterior elements at T12-L1 are fused surgically. No paravertebral hematoma or soft tissue swelling is seen. IMPRESSION: Degenerative disc and osteoarthritic facet disease. Thoracolumbar fusion hardware. Levoconvex scoliotic curvature. No acute traumatic abnormality. <Electronically signed by Oliver Marlow > 08/17/20 [id number]
--- NOTE | 2020-08-17 17:06 | REP ---
INDICATION: fall. COMPARISON: Comparison is made with CT images from September 14, 2014.. TECHNIQUE: Helical scanning is acquired. 4 mm axial images are generated. Coronal and sagittal MPR images are provided. FINDINGS: [employer] Technician views again demonstrate a Bryant gabbi fixation across the mid and lower thoracic spine bilaterally. There is dextroconvex scoliotic curvature as before. Thoracic kyphosis is slightly exaggerated. There is ossification of the anterior longitudinal ligament bridging the fused thoracic spine levels. No fracture or collapse is seen. The stabilization rods appear intact. Interlaminar ligament for and facet joint fusion are also noted. These findings are unchanged. The visualized posterior ribcage appears intact. IMPRESSION: Scoliosis status post dorsal stabilization of fixation rods. Anterior and posterior element fusion throughout most of the mid and lower thoracic levels unchanged. No traumatic abnormality noted. <Electronically signed by Oliver Marlow > 08/17/20 [id number]
[2020-08-17] MEDS ORDERED: SOMA350T PO (17:40)
[2020-08-17 17:49] VITALS: BP 145/86
--- NOTE | 2020-08-18 07:52 | ED PDOC ---
Post-Departure Follow-Up radiology report faxed to anu Edward Sarah MD Aug 18, 2020 07:52
== END 2020-08-17 18:20 | disposition home or self-care (01) ==
LOC: M ED 14:49
DX: M48.02 Spinal stenosis, cervical region (principal); M50.10 Cervical disc disorder with radiculopathy, unspecified cervical region; E11.9 Type 2 diabetes mellitus without complications; I10 Essential (primary) hypertension; K58.9 Irritable bowel syndrome, unspecified; Z88.0 Allergy status to penicillin; Z88.1 Allergy status to other antibiotic agents; Z88.2 Allergy status to sulfonamides; Z88.6 Allergy status to analgesic agent; Z88.8 Allergy status to other drugs, medicaments and biological substances; Z98.1 Arthrodesis status; Z98.84 Bariatric surgery status
CPT/HCPCS: 72125; 72128; 72131; 96372; 99284; J1885; J3360

== ENCOUNTER → 2020-08-22 | Outpatient (REF) | payer MEDICARE ==
[~2020-08-22] MED LIST changes: +SOMA350T PO; +TAMS1CAP17; +TOUJ1.2I
[2020-08-22 19:02] LABS: APPEARANCE, URINE CLEAR (CLEAR); BACTERIA, URINE AUTO NEGATIVE (NEGATIVE); BILIRUBIN, URINE AUTO NEGATIVE (NEGATIVE); BLOOD, URINE BLOOD NEGATIVE (NEGATIVE); COLOR, URINE STRAW (YELLOW); GLUCOSE, URINE (UA) AUTO 3+ mg/dL (NEGATIVE); KETONE, URINE AUTO NEGATIVE (NEGATIVE); LEUKOCYTE ESTERASE, URINE AUTO NEGATIVE (NEGATIVE); NITRITE, URINE AUTO NEGATIVE (NEGATIVE); PROTEIN, URINE AUTO NEGATIVE (NEGATIVE); RBC, URINE AUTO 0 /HPF (0-3); SPECIFIC GRAVITY URINE AUTO 1.032 (1.002-1.035); SQUAMOUS EPITHELIAL CELL UR AU 0 /HPF (0-6); UROBILINOGEN, URINE AUTO 0.2 mg/dL (0.0-2.0); WBC, URINE AUTO 1 /HPF (0-3)
== END ==
LOC: M SFHCPLAZ 14:13
PROVIDERS: ATTEND Family Medicine
DX: N39.41 Urge incontinence (principal)
CPT/HCPCS: 36415; 81001; 87086; G0103

== ENCOUNTER 2020-08-26 12:00 | Emergency (ER) | payer MEDICARE ==
[2020-08-26 14:41] LABS: ALBUMIN 3.9 GM/DL (3.2-5.2); ALT/SGPT 39 U/L (12-78); BASO % 0.9 % (0.0-1.0); BILIRUBIN,DIRECT 0.2 MG/DL (0.0-0.2); BILIRUBIN,TOTAL 0.6 MG/DL (0.2-1.0); BLOOD UREA NITROGEN 20 MG/DL (7-18); CALCIUM LEVEL 9.4 MG/DL (8.8-10.2); CARBON DIOXIDE LEVEL 26 MEQ/L (21-32); CHLORIDE LEVEL 104 MEQ/L (98-107); CK-MB VALUE MASS 1.6 NG/ML (<3.6); CPK CREATINE PHOSPHOKINASE 27 U/L (39-308); CREATININE FOR GFR 0.87 MG/DL (0.70-1.30); EOS # 0.2 10^3/uL (0.0-0.5); EOS % 2.4 % (0.0-3.0); GLOMERULAR FILTRATION RATE > 60.0 (>49); GLUCOSE, FASTING 236 MG/DL (70-100); HEMATOCRIT 37.7 % (42.0-52.0); HEMOGLOBIN 12.2 g/dl (13.5-17.5); LYMPH # 0.6 10^3/uL (1.5-5.0); LYMPH % 6.5 % (24.0-44.0); MB/CK RELATIVE INDEX 5.93 (< OR =4); MEAN CORPUSCULAR HGB CONC 32.4 g/dl (32.0-36.5); MEAN CORPUSCULAR VOLUME 89.8 fl (80.0-96.0); MONO % 10.9 % (2.0-8.0); NEUTROPHILS # 6.9 10^3/uL (1.5-8.5); NEUTROPHILS % 78.7 % (36.0-66.0); PLATELET COUNT, AUTOMATED 284 10^3/uL (150-450); POTASSIUM SERUM 4.8 MEQ/L (3.5-5.1); SODIUM LEVEL 139 MEQ/L (136-145); TOTAL PROTEIN 7.1 GM/DL (6.4-8.2); WHITE BLOOD COUNT 8.7 10^3/uL (4.0-10.0)
[2020-08-26 14:42] LABS: BASO # 0.1 10^3/uL (0.0-0.2); FREE T4 1.07 NG/DL (0.76-1.46); MAGNESIUM LEVEL 1.9 MG/DL (1.8-2.4); THYROID STIMULATING HORMONE 0.493 uIU/ML (0.358-3.740); TROPONIN I < 0.02 NG/ML (< 0.10)
[2020-08-26 15:28] VITALS: BP 145/76
[2020-08-26] MEDS ORDERED: ONDANSETRON 4 MG ORAL DISINTEGRATING TAB PO ONE (15:35)
--- NOTE | 2020-08-26 17:26 | REP ---
INDICATION: TREMORS. Tremors. COMPARISON: 11/26/2019. TECHNIQUE: CT BRAIN PERFORMED IN THE AXIAL PLANE. CORONAL RECONSTRUCTION IMAGES ARE PERFORMED. FINDINGS: There is no change since the prior exam. There is mild atrophy. There is no midline shift or mass effect. Gallagher-white differentiation is well maintained. There is no acute intracranial hemorrhage or extra-axial fluid collection. Visualized mastoid air cells and paranasal sinuses appear clear. There are mild vascular calcifications in the carotid siphons. IMPRESSION: No acute intracranial pathology. No change since prior study 11/26/2019. <Electronically signed by Skip Gallagher > 08/26/20 [id number]
== END 2020-08-26 15:57 | disposition home or self-care (01) ==
LOC: M ED 12:00
DX: M62.838 Other muscle spasm (principal); M43.22 Fusion of spine, cervical region; E11.9 Type 2 diabetes mellitus without complications; Z79.4 Long term (current) use of insulin; Z88.0 Allergy status to penicillin; Z88.1 Allergy status to other antibiotic agents; Z88.2 Allergy status to sulfonamides; Z88.6 Allergy status to analgesic agent; Z88.8 Allergy status to other drugs, medicaments and biological substances
CPT/HCPCS: 36415; 70450; 80048; 80076; 82550; 82553; 83735; 84439; 84443; 84484; 85025; 99281; Q0162

== ENCOUNTER → 2020-09-20 | Outpatient (CLI) | payer MEDICARE ==
[2020-09-20 13:36] LABS: APPEARANCE, URINE CLEAR (CLEAR); BACTERIA, URINE AUTO NEGATIVE (NEGATIVE); BILIRUBIN, URINE AUTO NEGATIVE (NEGATIVE); BLOOD, URINE BLOOD NEGATIVE (NEGATIVE); COLOR, URINE YELLOW (YELLOW); GLUCOSE, URINE (UA) AUTO 3+ mg/dL (NEGATIVE); KETONE, URINE AUTO NEGATIVE (NEGATIVE); LEUKOCYTE ESTERASE, URINE AUTO NEGATIVE (NEGATIVE); MUCUS, URINE SMALL (NEGATIVE); NITRITE, URINE AUTO NEGATIVE (NEGATIVE); PROTEIN, URINE AUTO NEGATIVE (NEGATIVE); RBC, URINE AUTO 0 /HPF (0-3); SPECIFIC GRAVITY URINE AUTO 1.029 (1.002-1.035); SQUAMOUS EPITHELIAL CELL UR AU 0 /HPF (0-6); UROBILINOGEN, URINE AUTO 0.2 mg/dL (0.0-2.0); WBC, URINE AUTO 0 /HPF (0-3)
[2020-09-20 13:45] LABS: BASO # 0.1 10^3/uL (0.0-0.2); BASO % 1.8 % (0.0-1.0); EOS # 0.5 10^3/uL (0.0-0.5); EOS % 9.1 % (0.0-3.0); HEMATOCRIT 36.3 % (42.0-52.0); HEMOGLOBIN 11.7 g/dl (13.5-17.5); LYMPH # 0.5 10^3/uL (1.5-5.0); LYMPH % 10.5 % (24.0-44.0); MEAN CORPUSCULAR HGB CONC 32.2 g/dl (32.0-36.5); MEAN CORPUSCULAR VOLUME 93.1 fl (80.0-96.0); MONO # 0.8 10^3/uL (0.0-0.8); MONO % 16.3 % (2.0-8.0); NEUTROPHILS # 3.1 10^3/uL (1.5-8.5); NEUTROPHILS % 61.7 % (36.0-66.0); PLATELET COUNT, AUTOMATED 246 10^3/uL (150-450)
[2020-09-20 13:55] LABS: INR 0.99; PROTHROMBIN TIME 13.3 SECONDS (12.5-14.3)
[2020-09-20 13:56] LABS: PARTIAL THROMBOPLASTIN TIME 30.7 SECONDS (24.2-38.5)
[2020-09-20 14:04] LABS: BLOOD UREA NITROGEN 17 MG/DL (7-18); CALCIUM LEVEL 9.4 MG/DL (8.8-10.2); CARBON DIOXIDE LEVEL 29 MEQ/L (21-32); CHLORIDE LEVEL 106 MEQ/L (98-107); CREATININE FOR GFR 0.84 MG/DL (0.70-1.30); GLOMERULAR FILTRATION RATE > 60.0 (>49); GLUCOSE, FASTING 158 MG/DL (70-100); POTASSIUM SERUM 4.9 MEQ/L (3.5-5.1); SODIUM LEVEL 140 MEQ/L (136-145)
== END ==
LOC: M PLALAB 11:07
PROVIDERS: ATTEND Neurological Surgery
DX: M47.816 Spondylosis without myelopathy or radiculopathy, lumbar region (principal); E11.65 Type 2 diabetes mellitus with hyperglycemia

== ENCOUNTER → 2020-11-09 | Outpatient (REF) | payer MEDICARE ==
[2020-11-09 11:15] LABS: APPEARANCE, URINE CLEAR (CLEAR); BACTERIA, URINE AUTO NEGATIVE (NEGATIVE); BILIRUBIN, URINE AUTO NEGATIVE (NEGATIVE); BLOOD, URINE BLOOD NEGATIVE (NEGATIVE); COLOR, URINE YELLOW (YELLOW); GLUCOSE, URINE (UA) AUTO 3+ mg/dL (NEGATIVE); KETONE, URINE AUTO NEGATIVE (NEGATIVE); LEUKOCYTE ESTERASE, URINE AUTO NEGATIVE (NEGATIVE); MUCUS, URINE SMALL (NEGATIVE); NITRITE, URINE AUTO NEGATIVE (NEGATIVE); PROTEIN, URINE AUTO NEGATIVE (NEGATIVE); RBC, URINE AUTO 0 /HPF (0-3); SPECIFIC GRAVITY URINE AUTO 1.029 (1.002-1.035); SQUAMOUS EPITHELIAL CELL UR AU 0 /HPF (0-6); UROBILINOGEN, URINE AUTO 0.2 mg/dL (0.0-2.0); WBC, URINE AUTO 0 /HPF (0-3)
[2020-11-09 11:21] LABS: HEMATOCRIT 39.1 % (42.0-52.0); HEMOGLOBIN 12.2 g/dl (13.5-17.5); MEAN CORPUSCULAR HEMOGLOBIN 28.7 pg (27.0-33.0); MEAN CORPUSCULAR HGB CONC 31.2 g/dl (32.0-36.5); PLATELET COUNT, AUTOMATED 261 10^3/uL (150-450); RED BLOOD COUNT 4.25 10^6/uL (4.30-6.10)
[2020-11-09 11:29] LABS: HEMOGLOBIN A1c 7.9 %
[2020-11-09 11:31] LABS: INR 1.06
[2020-11-09 11:32] LABS: PARTIAL THROMBOPLASTIN TIME 29.2 SECONDS (24.2-38.5)
[2020-11-09 11:52] LABS: BLOOD UREA NITROGEN 20 MG/DL (7-18); CALCIUM LEVEL 9.7 MG/DL (8.8-10.2); CARBON DIOXIDE LEVEL 28 MEQ/L (21-32); CHLORIDE LEVEL 105 MEQ/L (98-107); CREATININE FOR GFR 0.94 MG/DL (0.70-1.30); GLOMERULAR FILTRATION RATE > 60.0 (>49); GLUCOSE, FASTING 319 MG/DL (70-100); SODIUM LEVEL 138 MEQ/L (136-145)
== END ==
LOC: M SFHCPLAZ 08:48
PROVIDERS: ATTEND Family Medicine
DX: Z01.818 Encounter for other preprocedural examination (principal); E11.65 Type 2 diabetes mellitus with hyperglycemia; R60.9 Edema, unspecified

== ENCOUNTER → 2020-11-25 | Outpatient (CLI) | payer MEDICARE | LOC: M LABSMTC 07:58 | PROVIDERS: ATTEND Neurological Surgery | DX: Z11.52 Encounter for screening for COVID-19 (principal) ==

== ENCOUNTER → 2021-01-29 | Outpatient (REF) | payer MEDICARE ==
[~2021-01-29] MED LIST changes: +LOSA100T45 PO; -LOSA100T50 PO; -MONT10TA10 PO; +MONT10TA97 PO; +QUET1TAB17 PO; -QUET25TA3 PO; +TRES1INJ2
[2021-02-05 15:10] LABS: FATS NEUTRAL Normal (.); FATS TOTAL Normal (.); H PYLORI STOOL ANTIGEN Negative (Negative)
== END ==
LOC: M LAB REF 10:12
PROVIDERS: ATTEND Internal Medicine Gastroenterology
DX: K58.9 Irritable bowel syndrome, unspecified (principal); R19.7 Diarrhea, unspecified

== ENCOUNTER 2021-02-08 15:15 | Emergency (ER) | payer MEDICARE ==
[~2021-02-08] VITALS: Ht 177.8 cm; Wt 83.2 kg
[~2021-02-08 15:15] MED LIST changes: -LOSA100T45 PO; +LOSA100T50 PO; +MONT10TA10 PO; -MONT10TA97 PO; -TRES1INJ2
[2021-02-08] MEDS ORDERED: TRES1INJ2 (15:40)
[2021-02-08 16:39] LABS: HEMATOCRIT 40.5 % (42.0-52.0); MEAN CORPUSCULAR HEMOGLOBIN 28.4 pg (27.0-33.0); MEAN CORPUSCULAR HGB CONC 32.1 g/dl (32.0-36.5); MEAN CORPUSCULAR VOLUME 88.6 fl (80.0-96.0); PLATELET COUNT, AUTOMATED 259 10^3/uL (150-450); RED BLOOD COUNT 4.57 10^6/uL (4.30-6.10); WHITE BLOOD COUNT 7.2 10^3/uL (4.0-10.0)
--- NOTE | 2021-02-08 16:44 | REP ---
INDICATION: paranoia. COMPARISON: Multiple the latest 08/26/2020 TECHNIQUE: 5 x 5 mm contiguous helical transaxial sections were obtained from the skull base to the cerebral convexities without the administration of intravenous contrast. FINDINGS: The ventricles and sulci are consistent with the patient's age. There are no extra-axial fluid collections. There is no mass effect. The deep cerebral white matter is consistent with the patient's age. The orbital and petrous structures, cerebellopontine angles, and posterior fossa are unremarkable. The sella turcica, cavernous, and paracavernous structures are essentially unremarkable. The visualized portions of the paranasal sinuses and mastoid air cells are clear. Images of the skull base show no gross abnormality. IMPRESSION: Essentially unremarkable CT examination of the brain. No significant change compared to the prior exams. <Electronically signed by Konstantin Goodwin > 02/08/21 [id number]
[2021-02-08 17:15] LABS: ACETAMINOPHEN LEVEL < 2.0 UG/ML (10.0-30.0); ALBUMIN 3.8 GM/DL (3.2-5.2); ALT/SGPT 69 U/L (12-78); BILIRUBIN,DIRECT 0.1 MG/DL (0.0-0.2); BILIRUBIN,TOTAL 0.5 MG/DL (0.2-1.0); BLOOD UREA NITROGEN 21 MG/DL (7-18); CALCIUM LEVEL 9.1 MG/DL (8.8-10.2); CARBON DIOXIDE LEVEL 28 MEQ/L (21-32); CHLORIDE LEVEL 103 MEQ/L (98-107); CREATININE FOR GFR 0.99 MG/DL (0.70-1.30); ETHYL ALCOHOL (ETHANOL) < 0.003 % (0.000-0.010); GLOMERULAR FILTRATION RATE > 60.0 (>49); GLUCOSE, FASTING 232 MG/DL (70-100); POTASSIUM SERUM 4.6 MEQ/L (3.5-5.1); SALICYLATE LEVEL 2.6 MG/DL (5.0-30.0); SODIUM LEVEL 138 MEQ/L (136-145); THYROID STIMULATING HORMONE 0.491 uIU/ML (0.358-3.740); TOTAL PROTEIN 7.2 GM/DL (6.4-8.2)
[2021-02-08 18:40] LABS: AMPHETAMINES LEVEL URINE NEGATIVE (NEGATIVE); BARBITURATES URINE NEGATIVE (NEGATIVE); BENZODIAZEPINES URINE NEGATIVE (NEGATIVE); CANNABINOIDS URINE NEGATIVE (NEGATIVE); COCAINE METABOLITE URINE NEGATIVE (NEGATIVE); METHADONE URINE NEGATIVE (NEGATIVE); OPIATES URINE NEGATIVE (NEGATIVE); PHENCYCLIDINE URINE NEGATIVE (NEGATIVE)
[2021-02-08 19:28] VITALS: BP 149/71
--- NOTE | 2021-02-08 21:11 | ECGEPIP ---
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
== END 2021-02-08 21:40 | disposition home or self-care (01) ==
LOC: M ED 21:12
DX: F22 Delusional disorders (principal); E11.9 Type 2 diabetes mellitus without complications; I10 Essential (primary) hypertension; Z79.4 Long term (current) use of insulin; Z79.899 Other long term (current) drug therapy; Z88.8 Allergy status to other drugs, medicaments and biological substances; Z88.0 Allergy status to penicillin; Z88.2 Allergy status to sulfonamides; Z88.5 Allergy status to narcotic agent

== ENCOUNTER → 2021-02-23 | Outpatient (CLI) | payer MEDICARE ==
[~2021-02-23] MED LIST changes: +TRES1INJ2
[2021-02-23 12:20] LABS: HEMATOCRIT 37.9 % (42.0-52.0); HEMOGLOBIN 12.2 g/dl (13.5-17.5); MEAN CORPUSCULAR HEMOGLOBIN 28.4 pg (27.0-33.0); MEAN CORPUSCULAR HGB CONC 32.2 g/dl (32.0-36.5); MEAN CORPUSCULAR VOLUME 88.3 fl (80.0-96.0); PLATELET COUNT, AUTOMATED 238 10^3/uL (150-450); RED BLOOD COUNT 4.29 10^6/uL (4.30-6.10)
[2021-02-23 13:48] LABS: ALBUMIN 3.7 GM/DL (3.2-5.2); ALT/SGPT 40 U/L (12-78); BILIRUBIN,TOTAL 0.5 MG/DL (0.2-1.0); BLOOD UREA NITROGEN 15 MG/DL (7-18); CALCIUM LEVEL 9.7 MG/DL (8.8-10.2); CARBON DIOXIDE LEVEL 30 MEQ/L (21-32); CHLORIDE LEVEL 107 MEQ/L (98-107); CREATININE FOR GFR 0.87 MG/DL (0.70-1.30); FERRITIN 83 NG/ML (26-388); FREE T4 0.84 NG/DL (0.76-1.46); GLOMERULAR FILTRATION RATE > 60.0 (>49); GLUCOSE, FASTING 128 MG/DL (70-100); HEPATITIS B SURFACE ANTIGEN NEGATIVE (NEGATIVE); IRON (FE) 37 UG/DL (65-175); POTASSIUM SERUM 4.7 MEQ/L (3.5-5.1); SODIUM LEVEL 140 MEQ/L (136-145); THYROID STIMULATING HORMONE 0.359 uIU/ML (0.358-3.740); TOTAL PROTEIN 7.2 GM/DL (6.4-8.2)
[2021-02-23 13:54] LABS: HEPATITIS C VIRUS ABY INDEX < 0.0 INDEX (<0.8)
[2021-02-23 13:55] LABS: HEPATITIS B CORE ANTIBODY IGM NEGATIVE (NEGATIVE)
[2021-02-23 13:56] LABS: HEPATITIS A ANTIBODY IGM NEGATIVE (NEGATIVE)
[2021-02-24 20:22] LABS: ANA (HEP2) Negative (.)
== END ==
LOC: M LAB 11:24
PROVIDERS: ATTEND Physician Assistant
DX: L29.9 Pruritus, unspecified (principal)
CPT/HCPCS: 36415; 80053; 82728; 83540; 84439; 84443; 85027; 86038; 86705; 86709; 86803; 87340; G0463

== ENCOUNTER → 2021-05-10 | Outpatient (CLI) | payer MEDICARE ==
[2021-05-10 18:34] LABS: ALT/SGPT 39 U/L (12-78); BILIRUBIN,TOTAL 0.5 MG/DL (0.2-1.0); BLOOD UREA NITROGEN 21 MG/DL (7-18); CARBON DIOXIDE LEVEL 31 MEQ/L (21-32); CHLORIDE LEVEL 102 MEQ/L (98-107); CHOLESTEROL LEVEL 148 MG/DL (<200); CHOLESTEROL RISK RATIO 3.894 (<5); CREATININE FOR GFR 1.19 MG/DL (0.70-1.30); GLOMERULAR FILTRATION RATE > 60.0 (>49); GLUCOSE, FASTING 184 MG/DL (70-100); HDL CHOLESTEROL 38 MG/DL (>40); LDL CHOLESTEROL 53 MG/DL (<100); NON-HDL-C 110 MG/DL; POTASSIUM SERUM 5.4 MEQ/L (3.5-5.1); SODIUM LEVEL 137 MEQ/L (136-145); TOTAL PROTEIN 7.9 GM/DL (6.4-8.2); TRIGLYCERIDES LEVEL 287 MG/DL (<150)
[2021-05-10 18:43] LABS: CREATININE, URINE 55.2 MG/DL; MALB URINE SIEMENS 9.6 MG/L; MAU/CREAT RATIO 17.3 MCG/MG (0.0-30.0)
[2021-05-10 19:33] LABS: HEMOGLOBIN A1c 8.3 %
== END ==
LOC: M LAB 17:03
PROVIDERS: ATTEND Family Medicine
DX: E11.9 Type 2 diabetes mellitus without complications (principal)

== ENCOUNTER → 2021-05-11 | Outpatient (REF) | payer MEDICARE | LOC: M LAB REF 10:45 | PROVIDERS: ATTEND Internal Medicine Gastroenterology | DX: R19.7 Diarrhea, unspecified (principal) ==

== ENCOUNTER → 2021-05-14 | Outpatient (CLI) | payer MEDICARE ==
[2021-05-14 10:39] LABS: BLOOD UREA NITROGEN 17 MG/DL (7-18); CALCIUM LEVEL 9.6 MG/DL (8.8-10.2); CARBON DIOXIDE LEVEL 29 MEQ/L (21-32); CHLORIDE LEVEL 104 MEQ/L (98-107); CREATININE FOR GFR 1.09 MG/DL (0.70-1.30); GLOMERULAR FILTRATION RATE > 60.0 (>49); GLUCOSE, FASTING 173 MG/DL (70-100); POTASSIUM SERUM 4.3 MEQ/L (3.5-5.1); SODIUM LEVEL 138 MEQ/L (136-145)
== END ==
LOC: M PLALAB 08:07
PROVIDERS: ATTEND Family Medicine
DX: E87.5 Hyperkalemia (principal)

== ENCOUNTER → 2021-05-17 | Outpatient (CLI) | payer MEDICARE | LOC: M LAB 08:55 | PROVIDERS: ATTEND Physician Assistant | DX: L29.9 Pruritus, unspecified (principal) ==

== ENCOUNTER → 2021-05-21 | Outpatient (CLI) | payer MEDICARE ==
--- NOTE | 2021-05-21 12:17 | REP ---
INDICATION: PAIN IN LEFT FOREARM COMPARISON: None. TECHNIQUE: AP and lateral views of the left forearm. FINDINGS: Lateral view best demonstrates degenerative changes at the elbow including bulky osteophyte at the olecranon process. Remainder of the examination is essentially age-appropriate. No evidence for acute or healed injury. No obvious soft tissue abnormality. IMPRESSION: Degenerative changes at the elbow. Otherwise age-appropriate examination. No further abnormality by radiographic evaluation appreciated. <Electronically signed by John Soria > 05/21/21 [id number]
[2021-05-21 13:33] LABS: CK-MB VALUE MASS 2.2 NG/ML (<3.6); CPK CREATINE PHOSPHOKINASE 55 U/L (39-308); TROPONIN I < 0.02 NG/ML (< 0.10)
== END ==
LOC: M PLAIMG 09:52
PROVIDERS: ATTEND Family Medicine
DX: R07.9 Chest pain, unspecified (principal); M79.632 Pain in left forearm
CPT/HCPCS: 36415; 73090; 82550; 82553; 84484; 93005; G0463

== ENCOUNTER → 2021-07-30 | Outpatient (REF) | payer MEDICARE ==
[~2021-07-30] MED LIST changes: +LOSA100T45 PO; -LOSA100T50 PO; -MONT10TA10 PO; +MONT10TA97 PO
== END ==
LOC: M LAB REF 13:59
PROVIDERS: ATTEND Physician Assistant
DX: L30.8 Other specified dermatitis (principal)

== ENCOUNTER → 2021-08-14 | Outpatient (CLI) | payer MEDICARE ==
[2021-08-14 09:08] LABS: HEMATOCRIT 34.6 % (42.0-52.0); HEMOGLOBIN 10.9 g/dl (13.5-17.5); MEAN CORPUSCULAR HEMOGLOBIN 28.4 pg (27.0-33.0); MEAN CORPUSCULAR HGB CONC 31.5 g/dl (32.0-36.5); MEAN CORPUSCULAR VOLUME 90.1 fl (80.0-96.0); PLATELET COUNT, AUTOMATED 289 10^3/uL (150-450); RED BLOOD COUNT 3.84 10^6/uL (4.30-6.10); WHITE BLOOD COUNT 4.9 10^3/uL (4.0-10.0)
[2021-08-14 09:24] LABS: COMPLEMENT C4 16 MG/DL (10-40); RHEUMATOID FACTOR QUANT < 10.0 IU/ML (<15.0)
[2021-08-14 09:42] LABS: ERYTHROCYTE SEDIMENTATION RATE 29 mm/hr (0-20)
[2021-08-15 20:08] LABS: ANA (HEP2) Negative (.)
== END ==
LOC: M LAB 08:21
PROVIDERS: ATTEND Physician Assistant
DX: R21 Rash and other nonspecific skin eruption (principal)

== ENCOUNTER → 2021-08-30 | Outpatient (CLI) | payer MEDICARE ==
[~2021-08-30] MED LIST changes: +FAMO40TA3; +FLUO0.05; +GABA800T4; +HYDR-643; +JANU50TA8; +JARD1TAB3; +LOSA100T45; +ROSU10TA6; +SULF500T2
[2021-08-30 13:43] LABS: BASO # 0.1 10^3/uL (0.0-0.2); BASO % 1.5 % (0.0-1.0); EOS # 0.3 10^3/uL (0.0-0.5); EOS % 3.8 % (0.0-3.0); HEMOGLOBIN 11.6 g/dl (13.5-17.5); LYMPH % 14.8 % (24.0-44.0); MEAN CORPUSCULAR HEMOGLOBIN 28.6 pg (27.0-33.0); MEAN CORPUSCULAR HGB CONC 32.2 g/dl (32.0-36.5); MEAN CORPUSCULAR VOLUME 88.7 fl (80.0-96.0); MONO # 0.6 10^3/uL (0.0-0.8); MONO % 9.1 % (2.0-8.0); NEUTROPHILS # 4.8 10^3/uL (1.5-8.5); NEUTROPHILS % 70.1 % (36.0-66.0); PLATELET COUNT, AUTOMATED 319 10^3/uL (150-450); RED BLOOD COUNT 4.06 10^6/uL (4.30-6.10); WHITE BLOOD COUNT 6.9 10^3/uL (4.0-10.0)
[2021-08-30 14:43] LABS: BLOOD UREA NITROGEN 17 MG/DL (7-18); CALCIUM LEVEL 9.4 MG/DL (8.8-10.2); CARBON DIOXIDE LEVEL 30 MEQ/L (21-32); CHLORIDE LEVEL 105 MEQ/L (98-107); CREATININE FOR GFR 0.83 MG/DL (0.70-1.30); GLOMERULAR FILTRATION RATE > 60.0 (>49); GLUCOSE, FASTING 288 MG/DL (70-100); POTASSIUM SERUM 4.4 MEQ/L (3.5-5.1); RHEUMATOID FACTOR QUANT < 10.0 IU/ML (<15.0); SODIUM LEVEL 138 MEQ/L (136-145)
[2021-08-30 14:47] LABS: ERYTHROCYTE SEDIMENTATION RATE 25 mm/hr (0-20)
[2021-08-30 18:06] LABS: HEMOGLOBIN A1c 7.9 %
== END ==
LOC: M PLAIMG 09:16
PROVIDERS: ATTEND Family Medicine
DX: M19.042 Primary osteoarthritis, left hand (principal); M79.89 Other specified soft tissue disorders; I10 Essential (primary) hypertension; E11.9 Type 2 diabetes mellitus without complications; M06.9 Rheumatoid arthritis, unspecified

== ENCOUNTER 2021-09-20 02:28 | Emergency (ER) | payer MEDICARE ==
[~2021-09-20] VITALS: Ht 177.8 cm; Wt 78.5 kg
[~2021-09-20 02:28] MED LIST changes: -FAMO40TA3; -FLUO0.05; -GABA800T4; -HYDR-643; -JANU50TA8; -JARD1TAB3; -LOSA100T45; -ROSU10TA6; -SULF500T2
[2021-09-20] MEDS ORDERED: ROSU10TA6 (05:44)
[2021-09-20] MEDS ORDERED: HYDR-643 (05:44)
[2021-09-20] MEDS ORDERED: TAMS1CAP17 (05:44)
[2021-09-20] MEDS ORDERED: LOSA100T45 (05:44)
[2021-09-20] MEDS ORDERED: FAMO40TA3 (05:44)
[2021-09-20] MEDS ORDERED: SULF500T2 (05:44)
[2021-09-20] MEDS ORDERED: FLUO0.05 (05:44)
[2021-09-20] MEDS ORDERED: GABA800T4 (05:44)
[2021-09-20] MEDS ORDERED: JARD1TAB3 (05:44)
[2021-09-20] MEDS ORDERED: JANU50TA8 (05:44)
[2021-09-20 06:00] VITALS: BP 127/68
== END 2021-09-20 06:40 | disposition home or self-care (01) ==
LOC: M ED 02:28
DX: F22 Delusional disorders (principal); E11.9 Type 2 diabetes mellitus without complications; Z79.4 Long term (current) use of insulin; Z79.899 Other long term (current) drug therapy; Z88.0 Allergy status to penicillin; Z88.1 Allergy status to other antibiotic agents; Z88.2 Allergy status to sulfonamides; Z88.6 Allergy status to analgesic agent

== ENCOUNTER → 2021-10-04 | Outpatient (CLI) | payer MEDICARE ==
[~2021-10-04] MED LIST changes: +ANEC4CRE3 TOP; +CAPS0.022 TOP; +FAMO40TA3; +FLUO0.05; +GABA800T4; +HYDR-643; +JANU50TA8; +JARD1TAB3; +LOSA100T45; +METH-1165 PO; +ROSU10TA6; +SULF500T2
[2021-10-04 11:37] LABS: HEMATOCRIT 35.5 % (42.0-52.0); HEMOGLOBIN 11.3 g/dl (13.5-17.5); MEAN CORPUSCULAR HEMOGLOBIN 29.1 pg (27.0-33.0); MEAN CORPUSCULAR HGB CONC 31.8 g/dl (32.0-36.5); MEAN CORPUSCULAR VOLUME 91.5 fl (80.0-96.0); PLATELET COUNT, AUTOMATED 305 10^3/uL (150-450); RED BLOOD COUNT 3.88 10^6/uL (4.30-6.10); WHITE BLOOD COUNT 5.2 10^3/uL (4.0-10.0)
[2021-10-04 12:05] LABS: PERCENT SATURATION 30.3 % (19.7-50.0)
== END ==
LOC: M LAB 09:53
PROVIDERS: ATTEND Physician Assistant
DX: R20.8 Other disturbances of skin sensation (principal); L28.0 Lichen simplex chronicus

== ENCOUNTER → 2021-10-11 | Outpatient (CLI) | payer MEDICARE, MEDICAID ==
[2021-10-11 10:29] LABS: BASO % 0.4 % (0.0-1.0); HEMATOCRIT 37.3 % (42.0-52.0); HEMOGLOBIN 11.9 g/dl (13.5-17.5); LYMPH # 0.8 10^3/uL (1.5-5.0); LYMPH % 15.1 % (24.0-44.0); MEAN CORPUSCULAR HEMOGLOBIN 28.7 pg (27.0-33.0); MEAN CORPUSCULAR HGB CONC 31.9 g/dl (32.0-36.5); MEAN CORPUSCULAR VOLUME 89.9 fl (80.0-96.0); MONO # 0.8 10^3/uL (0.0-0.8); MONO % 14.9 % (2.0-8.0); NEUTROPHILS # 3.7 10^3/uL (1.5-8.5); NEUTROPHILS % 68.9 % (36.0-66.0); PLATELET COUNT, AUTOMATED 274 10^3/uL (150-450); RED BLOOD COUNT 4.15 10^6/uL (4.30-6.10); WHITE BLOOD COUNT 5.4 10^3/uL (4.0-10.0)
[2021-10-11 10:30] LABS: APPEARANCE, URINE CLEAR (CLEAR); BACTERIA, URINE AUTO NEGATIVE (NEGATIVE); BILIRUBIN, URINE AUTO NEGATIVE (NEGATIVE); BLOOD, URINE BLOOD NEGATIVE (NEGATIVE); COLOR, URINE YELLOW (YELLOW); GLUCOSE, URINE (UA) AUTO 3+ mg/dL (NEGATIVE); KETONE, URINE AUTO NEGATIVE (NEGATIVE); LEUKOCYTE ESTERASE, URINE AUTO NEGATIVE (NEGATIVE); NITRITE, URINE AUTO NEGATIVE (NEGATIVE); PROTEIN, URINE AUTO NEGATIVE (NEGATIVE); RBC, URINE AUTO 0 /HPF (0-3); SQUAMOUS EPITHELIAL CELL UR AU 0 /HPF (0-6); UROBILINOGEN, URINE AUTO 0.2 mg/dL (0.0-2.0); WBC, URINE AUTO 0 /HPF (0-3)
[2021-10-11 10:38] LABS: HEMATOCRIT 37.4 % (42.0-52.0)
[2021-10-11 10:57] LABS: THYROID STIMULATING HORMONE 1.06 uIU/ML (0.358-3.740)
== END ==
LOC: M PLALAB 07:52
PROVIDERS: ATTEND Family Medicine
DX: D64.9 Anemia, unspecified (principal); D72.810 Lymphocytopenia; R53.83 Other fatigue; R30.0 Dysuria; R39.11 Hesitancy of micturition

== ENCOUNTER → 2021-11-16 | Outpatient (CLI) | payer MEDICARE, MEDICAID ==
[2021-11-16 08:16] LABS: BLOOD UREA NITROGEN 20 MG/DL (7-18); CALCIUM LEVEL 9.7 MG/DL (8.8-10.2); CARBON DIOXIDE LEVEL 29 MEQ/L (21-32); CHLORIDE LEVEL 102 MEQ/L (98-107); CREATININE FOR GFR 0.94 MG/DL (0.70-1.30); GLOMERULAR FILTRATION RATE > 60.0 (>49); GLUCOSE, FASTING 164 MG/DL (70-100); POTASSIUM SERUM 4.1 MEQ/L (3.5-5.1); SODIUM LEVEL 140 MEQ/L (136-145)
== END ==
LOC: M LAB 06:30
PROVIDERS: ATTEND Physician Assistant
DX: M54.59 Other low back pain (principal)

== ENCOUNTER → 2021-11-16 | Outpatient (CLI) | payer MEDICARE, MEDICAID ==
[2021-11-16 07:50] LABS: HEMATOCRIT 39.9 % (42.0-52.0); HEMOGLOBIN 12.8 g/dl (13.5-17.5); MEAN CORPUSCULAR HEMOGLOBIN 28.6 pg (27.0-33.0); MEAN CORPUSCULAR HGB CONC 32.1 g/dl (32.0-36.5); MEAN CORPUSCULAR VOLUME 89.3 fl (80.0-96.0); PLATELET COUNT, AUTOMATED 325 10^3/uL (150-450); RED BLOOD COUNT 4.47 10^6/uL (4.30-6.10); WHITE BLOOD COUNT 5.3 10^3/uL (4.0-10.0)
[2021-11-16 08:20] LABS: ALBUMIN 3.7 GM/DL (3.2-5.2); ALT/SGPT 64 U/L (12-78); BILIRUBIN,TOTAL 0.5 MG/DL (0.2-1.0); BLOOD UREA NITROGEN 20 MG/DL (7-18); CARBON DIOXIDE LEVEL 31 MEQ/L (21-32); CHLORIDE LEVEL 103 MEQ/L (98-107); CREATININE FOR GFR 0.98 MG/DL (0.70-1.30); GLOMERULAR FILTRATION RATE > 60.0 (>49); GLUCOSE, FASTING 162 MG/DL (70-100); MAGNESIUM LEVEL 2.2 MG/DL (1.8-2.4); POTASSIUM SERUM 4.1 MEQ/L (3.5-5.1); SODIUM LEVEL 137 MEQ/L (136-145); THYROID STIMULATING HORMONE 0.743 uIU/ML (0.358-3.740); TOTAL PROTEIN 7.1 GM/DL (6.4-8.2)
[2021-11-16 08:48] LABS: ERYTHROCYTE SEDIMENTATION RATE 32 mm/hr (0-20)
== END ==
LOC: M LAB 06:28
PROVIDERS: ATTEND Internal Medicine Gastroenterology
DX: K21.9 Gastro-esophageal reflux disease without esophagitis (principal); E07.9 Disorder of thyroid, unspecified

== ENCOUNTER → 2021-12-08 | Outpatient (CLI) | payer MEDICARE, MEDICAID | LOC: M EKG 09:27 | PROVIDERS: ATTEND Internal Medicine Hematology | DX: R00.2 Palpitations (principal) ==

== ENCOUNTER → 2021-12-13 | Outpatient (CLI) | payer MEDICARE, MEDICAID ==
[2021-12-13 13:58] LABS: BASO # 0.1 10^3/uL (0.0-0.2); BASO % 0.6 % (0.0-1.0); EOS # 0.3 10^3/uL (0.0-0.5); EOS % 2.3 % (0.0-3.0); HEMATOCRIT 36.8 % (42.0-52.0); HEMOGLOBIN 11.9 g/dl (13.5-17.5); LYMPH # 1.3 10^3/uL (1.5-5.0); LYMPH % 11.7 % (24.0-44.0); MEAN CORPUSCULAR HEMOGLOBIN 28.7 pg (27.0-33.0); MEAN CORPUSCULAR HGB CONC 32.3 g/dl (32.0-36.5); MEAN CORPUSCULAR VOLUME 88.9 fl (80.0-96.0); MONO # 1.1 10^3/uL (0.0-0.8); MONO % 10.2 % (2.0-8.0); NEUTROPHILS # 8.1 10^3/uL (1.5-8.5); NEUTROPHILS % 74.8 % (36.0-66.0); PLATELET COUNT, AUTOMATED 322 10^3/uL (150-450); RED BLOOD COUNT 4.14 10^6/uL (4.30-6.10); WHITE BLOOD COUNT 10.9 10^3/uL (4.0-10.0)
[2021-12-13 14:12] LABS: HEMOGLOBIN A1c 10.4 %
[2021-12-13 14:25] LABS: ALBUMIN 3.5 GM/DL (3.2-5.2); ALT/SGPT 22 U/L (12-78); BILIRUBIN,TOTAL 0.4 MG/DL (0.2-1.0); BLOOD UREA NITROGEN 21 MG/DL (7-18); CALCIUM LEVEL 9.6 MG/DL (8.8-10.2); CARBON DIOXIDE LEVEL 26 MEQ/L (21-32); CHLORIDE LEVEL 100 MEQ/L (98-107); CREATININE FOR GFR 1.01 MG/DL (0.70-1.30); FOLATE 20.8 NG/ML; FREE T4 0.85 NG/DL (0.76-1.46); GLOMERULAR FILTRATION RATE > 60.0 (>49); GLUCOSE, FASTING 309 MG/DL (70-100); POTASSIUM SERUM 4.2 MEQ/L (3.5-5.1); RHEUMATOID FACTOR QUANT < 10.0 IU/ML (<15.0); SODIUM LEVEL 136 MEQ/L (136-145); THYROID STIMULATING HORMONE 0.513 uIU/ML (0.358-3.740); TOTAL PROTEIN 7.3 GM/DL (6.4-8.2); VITAMIN B12 LEVEL 704 PG/ML
[2021-12-13 14:54] LABS: ERYTHROCYTE SEDIMENTATION RATE 60 mm/hr (0-20)
[2021-12-18 13:47] LABS: ALBUMIN 3.95 GM/DL (3.29-5.55); ALBUMIN % 54.1 % (55.8-66.1); ALPHA-1-GLOBULIN % 4.7 % (2.9-4.9); ALPHA-2-GLOBULINS % 13.1 % (7.1-11.8); BETA-1-GLOBULINS % 6.4 % (4.7-7.2); BETA-2-GLOBULINS % 5.3 % (3.2-6.5); GAMMA GLOBULIN % 16.4 % (11.1-18.8)
[2021-12-18 13:48] LABS: ALPHA-1-GLOBULINS 0.34 GM/DL (0.17-0.41); ALPHA-2-GLOBULINS 0.96 GM/DL (0.42-0.99); BETA-1-GLOBULINS 0.47 GM/DL (0.28-0.60); BETA-2-GLOBULINS 0.39 GM/DL (0.19-0.55)
[2021-12-18 18:09] LABS: ANTINUCLEAR ANTIBODIES DIRECT Negative (Negative); SJOGREN'S ANTI SS-A <0.2 AI (0.0-0.9); SJOGREN'S ANTI SS-B <0.2 AI (0.0-0.9); VITAMIN B1 LEVEL WHOLE BLOOD 195.4 nmol/L (66.5-200.0); VITAMIN B6,PYRIDOXAL PHOSPHATE 18.3 ug/L (3.4-65.2); VITAMIN E(ALPHA TOCOPHEROL) 23.9 mg/L (9.0-29.0); VITAMIN E(GAMMA TOCOPHEROL) 1.3 mg/L (0.5-4.9)
== END ==
LOC: M LAB 12:38
PROVIDERS: ATTEND Psychiatry & Neurology Neurology
DX: E07.9 Disorder of thyroid, unspecified (principal); E11.9 Type 2 diabetes mellitus without complications; E53.8 Deficiency of other specified B group vitamins; M35.00 Sjogren syndrome, unspecified; Z11.8 Encounter for screening for other infectious and parasitic diseases

== ENCOUNTER → 2021-12-18 | Outpatient (REF) | payer MEDICARE, MEDICAID | LOC: M SFHCPLAZ 13:11 | PROVIDERS: ATTEND Physician Assistant | DX: R05.9 Cough, unspecified (principal) ==

== ENCOUNTER 2022-01-28 17:45 | Inpatient (IN) | payer MEDICARE, MEDICAID ==
[~2022-01-28] VITALS: Ht 175.3 cm; Wt 90.0 kg
[2022-01-28 18:28] LABS: BASO # 0.1 10^3/uL (0.0-0.2); BASO % 0.4 % (0.0-1.0); EOS # 0.3 10^3/uL (0.0-0.5); EOS % 1.5 % (0.0-3.0); HEMATOCRIT 39.3 % (42.0-52.0); HEMOGLOBIN 12.9 g/dl (13.5-17.5); LYMPH # 0.8 10^3/uL (1.5-5.0); LYMPH % 4.5 % (24.0-44.0); MEAN CORPUSCULAR HEMOGLOBIN 28.9 pg (27.0-33.0); MEAN CORPUSCULAR HGB CONC 32.8 g/dl (32.0-36.5); MEAN CORPUSCULAR VOLUME 88.1 fl (80.0-96.0); MONO % 9.7 % (2.0-8.0); NEUTROPHILS # 15.3 10^3/uL (1.5-8.5); NEUTROPHILS % 83.2 % (36.0-66.0); PLATELET COUNT, AUTOMATED 307 10^3/uL (150-450); RED BLOOD COUNT 4.46 10^6/uL (4.30-6.10); WHITE BLOOD COUNT 18.4 10^3/uL (4.0-10.0)
[2022-01-28 18:55] LABS: CK-MB VALUE MASS 1.4 NG/ML (<3.6); MB/CK RELATIVE INDEX 3.33 (< OR =4)
[2022-01-28 19:03] LABS: ALT/SGPT 48 U/L (12-78); BILIRUBIN,DIRECT 0.2 MG/DL (0.0-0.2); BILIRUBIN,TOTAL 0.7 MG/DL (0.2-1.0); BLOOD UREA NITROGEN 19 MG/DL (7-18); CALCIUM LEVEL 9.6 MG/DL (8.8-10.2); CARBON DIOXIDE LEVEL 29 MEQ/L (21-32); CHLORIDE LEVEL 102 MEQ/L (98-107); CREATININE FOR GFR 1.09 MG/DL (0.70-1.30); FREE T4 1.02 NG/DL (0.76-1.46); GLOMERULAR FILTRATION RATE > 60.0 (>49); GLUCOSE, FASTING 188 MG/DL (70-100); LIPASE 74 U/L (73-393); NT-PRO BNP 135 PG/ML (<125); SODIUM LEVEL 139 MEQ/L (136-145); THYROID STIMULATING HORMONE 0.895 uIU/ML (0.358-3.740); TOTAL PROTEIN 7.5 GM/DL (6.4-8.2)
[2022-01-28] MEDS ORDERED: NS 1,000 ML IV ONE (19:05)
[2022-01-28 19:08] LABS: MONO # 1.8 10^3/uL (0.0-0.8)
[2022-01-28] MEDS ORDERED: ISOVUE-370 76% 100ML VIAL As Ordered ONE (19:20)
[2022-01-28] MEDS ORDERED: METOCLOPRAMIDE INJ 10MG/2ML VIAL (J2765 PER 1) IV ONE (19:45)
[2022-01-28] MEDS ORDERED: MORPHINE 2 MG/ML 1ML VIAL IV ONE (19:45)
[2022-01-28] MEDS ORDERED: PROMETHAZINE 25MG/ML 1ML VIAL IV ONE (23:40)
[2022-01-29] MEDS ORDERED: ONDANSETRON 4MG 2ML VIAL IV PRN (01:25)
[2022-01-29] MEDS ORDERED: GLUCOSE 4GM CHEW TABLET PO PRN (02:15)
[2022-01-29] MEDS ORDERED: DEXTROSE 50% 50 ML SYRINGE IV PRN (02:15)
[2022-01-29] MEDS ORDERED: GLUCAGON INJ 1MG VIAL SC PRN (02:15)
[2022-01-29 02:49] LABS: RSV AMPLIFICATION NEGATIVE (NEGATIVE)
[2022-01-29] MEDS ORDERED: PANTOPRAZOLE 40MG VIAL IV ONE (03:00)
[2022-01-29] MEDS: LR 1,000 ML IV SCH ×3 (03:25→23:25)
[2022-01-29] MEDS ORDERED: TRES1INJ2 SC (03:29)
[2022-01-29] MEDS ORDERED: BISO5TAB14 PO (03:29)
[2022-01-29] MEDS ORDERED: GABA800T4 PO ×2 (03:29)
[2022-01-29] MEDS ORDERED: [UNRECOGNIZED DRUG - CODE] TOP (03:29)
[2022-01-29] MEDS ORDERED: LEFL1TAB4 PO (03:29)
[2022-01-29] MEDS ORDERED: SENN-23 PO (03:29)
[2022-01-29] MEDS ORDERED: JANU50TA8 PO (03:29)
[2022-01-29] MEDS ORDERED: ZOLP5TAB PO (03:29)
[2022-01-29] MEDS ORDERED: VICT18IN SC (03:29)
[2022-01-29] MEDS ORDERED: MELO15TA28 PO (03:29)
[2022-01-29] MEDS ORDERED: ROSU10TA6 PO (03:29)
[2022-01-29] MEDS ORDERED: LOSA100T45 PO (03:29)
[2022-01-29] MEDS ORDERED: HOME MED LIST COMPLETE! XX SCH (03:30)
[2022-01-29 05:03] LABS: HEMATOCRIT 36.9 % (42.0-52.0); HEMOGLOBIN 12.2 g/dl (13.5-17.5); MEAN CORPUSCULAR HEMOGLOBIN 28.8 pg (27.0-33.0); MEAN CORPUSCULAR HGB CONC 33.1 g/dl (32.0-36.5); MEAN CORPUSCULAR VOLUME 87.2 fl (80.0-96.0); PLATELET COUNT, AUTOMATED 273 10^3/uL (150-450); RED BLOOD COUNT 4.23 10^6/uL (4.30-6.10); WHITE BLOOD COUNT 9.7 10^3/uL (4.0-10.0)
[2022-01-29 05:26] LABS: ALBUMIN 3.4 GM/DL (3.2-5.2); ALT/SGPT 38 U/L (12-78); BILIRUBIN,TOTAL 0.9 MG/DL (0.2-1.0); BLOOD UREA NITROGEN 25 MG/DL (7-18); CALCIUM LEVEL 8.7 MG/DL (8.8-10.2); CARBON DIOXIDE LEVEL 28 MEQ/L (21-32); CHLORIDE LEVEL 105 MEQ/L (98-107); CREATININE FOR GFR 0.92 MG/DL (0.70-1.30); GLOMERULAR FILTRATION RATE > 60.0 (>49); GLUCOSE, FASTING 271 MG/DL (70-100); MAGNESIUM LEVEL 1.4 MG/DL (1.8-2.4); POTASSIUM SERUM 3.7 MEQ/L (3.5-5.1); SODIUM LEVEL 140 MEQ/L (136-145)
[2022-01-29 05:39] LABS: BASOPHILS 2 % (0-1); EOSINOPHILS 2 % (0-3); LYMPHOCYTES 2 % (16-44); METAMYELOCYTES 4 % (0-0); MONOCYTES 13 % (0-5); NEUTROPHILS 61 % (28-66)
[2022-01-29 05:41] LABS: PLATELET ESTIMATE NORMAL (NORMAL)
[2022-01-29] MEDS: HEPARIN SOD (PORCINE) 5000UNITS/ML 1ML VIAL/SYRINGE SC SCH ×3 (06:00→21:14)
[2022-01-29] MEDS: INSULIN LISPRO (NovoLOG) PER UNIT SC SCH ×3 (06:00→17:02)
[2022-01-29] MEDS ORDERED: metroNIDAZOLE (FLAGYL) 500MG TABLET PO SCH (06:00)
[2022-01-29] MEDS: PANTOPRAZOLE 40MG VIAL IV SCH (08:58)
[2022-01-29 09:00] VITALS: BP 106/65
[2022-01-29] MEDS: LOSARTAN 50MG TABLET PO SCH (09:00)
[2022-01-29 13:00] VITALS: BP 100/61
[2022-01-29] MEDS ORDERED: MAG SULF 1GM/100ML (MAG RUN) 1 GM in IV 1 EA IV ONE (13:20)
[2022-01-29 14:00] VITALS: BP 108/63
[2022-01-29 14:20] VITALS: BP 108/63
[2022-01-29] MEDS: ROSUVASTATIN 10 MG TAB (CRESTOR) PO SCH (15:38)
[2022-01-29] MEDS ORDERED: bisoproloL fumarate 5 MG TAB PO SCH (21:00)
[2022-01-29] MEDS ORDERED: LEVEMIR (INSULIN DETEMIR) 1 UNITS/0.01ML SC SCH (21:00)
[2022-01-29] MEDS ORDERED: GABAPENTIN 400MG CAP PO SCH (21:00)
[2022-01-29] MEDS ORDERED: MELOXICAM (MOBIC) 7.5 MG TAB PO SCH (21:00)
[2022-01-29] MEDS ORDERED: DOXEPIN 25 MG CAP PO SCH (21:00)
[2022-01-29 21:10] VITALS: BP 145/83
[2022-01-29] MEDS ORDERED: RAMELTEON 8 MG TAB (ROZEREM) PO PRN (21:45)
[2022-01-30] MEDS: INSULIN LISPRO (NovoLOG) PER UNIT SC SCH ×2 (01:06→06:00)
[2022-01-30 02:00] VITALS: BP 120/76
[2022-01-30 05:30] VITALS: BP 104/58
[2022-01-30 06:03] LABS: BASO % 0.5 % (0.0-1.0); EOS # 0.4 10^3/uL (0.0-0.5); EOS % 6.1 % (0.0-3.0); HEMATOCRIT 30.9 % (42.0-52.0); LYMPH # 1.3 10^3/uL (1.5-5.0); LYMPH % 20.6 % (24.0-44.0); MEAN CORPUSCULAR HEMOGLOBIN 28.6 pg (27.0-33.0); MEAN CORPUSCULAR VOLUME 89.3 fl (80.0-96.0); NEUTROPHILS # 3.6 10^3/uL (1.5-8.5); NEUTROPHILS % 56.5 % (36.0-66.0); PLATELET COUNT, AUTOMATED 212 10^3/uL (150-450); RED BLOOD COUNT 3.46 10^6/uL (4.30-6.10); WHITE BLOOD COUNT 6.4 10^3/uL (4.0-10.0)
[2022-01-30 06:11] LABS: HEMOGLOBIN 9.9 g/dl (13.5-17.5)
[2022-01-30 06:32] LABS: ALBUMIN 2.8 GM/DL (3.2-5.2); ALT/SGPT 28 U/L (12-78); BILIRUBIN,TOTAL 0.5 MG/DL (0.2-1.0); BLOOD UREA NITROGEN 23 MG/DL (7-18); CALCIUM LEVEL 8.3 MG/DL (8.8-10.2); CARBON DIOXIDE LEVEL 30 MEQ/L (21-32); CHLORIDE LEVEL 108 MEQ/L (98-107); CREATININE FOR GFR 0.88 MG/DL (0.70-1.30); GLOMERULAR FILTRATION RATE > 60.0 (>49); GLUCOSE, FASTING 78 MG/DL (70-100); MAGNESIUM LEVEL 1.7 MG/DL (1.8-2.4); POTASSIUM SERUM 3.8 MEQ/L (3.5-5.1); SODIUM LEVEL 140 MEQ/L (136-145); TOTAL PROTEIN 5.6 GM/DL (6.4-8.2)
[2022-01-30] MEDS: HEPARIN SOD (PORCINE) 5000UNITS/ML 1ML VIAL/SYRINGE SC SCH (06:46)
[2022-01-30] MEDS ORDERED: MAG SULF 1GM/100ML (MAG RUN) 1 GM in IV 1 EA IV ONE (06:50)
[2022-01-30 09:00] VITALS: BP 116/77
[2022-01-30] MEDS ORDERED: GABAPENTIN 400MG CAP PO SCH (09:00)
[2022-01-30] MEDS: LOSARTAN 50MG TABLET PO SCH (09:00)
[2022-01-30] MEDS: ROSUVASTATIN 10 MG TAB (CRESTOR) PO SCH (09:46)
[2022-01-30] MEDS: PANTOPRAZOLE 40MG VIAL IV SCH (09:47)
[2022-01-30 10:00] VITALS: BP 116/77
== END 2022-01-30 11:53 | disposition home or self-care (01) | DRG 392 ==
LOC: M ED 17:45 → EDBD 17:45 → M ED INP 01-29 01:18 → ENRESERV 01-29 13:10 → M MSPAV 01-29 14:21
PROVIDERS: ADMIT Internal Medicine; ATTEND Internal Medicine
DX: R19.7 Diarrhea, unspecified (principal); R11.2 Nausea with vomiting, unspecified; E11.43 Type 2 diabetes mellitus with diabetic autonomic (poly)neuropathy; K31.84 Gastroparesis; Z86.711 Personal history of pulmonary embolism; Z86.718 Personal history of other venous thrombosis and embolism; R63.4 Abnormal weight loss; D50.9 Iron deficiency anemia, unspecified; I10 Essential (primary) hypertension; K21.9 Gastro-esophageal reflux disease without esophagitis; J45.909 Unspecified asthma, uncomplicated; E78.00 Pure hypercholesterolemia, unspecified; G47.00 Insomnia, unspecified; M06.9 Rheumatoid arthritis, unspecified; F22 Delusional disorders; D72.829 Elevated white blood cell count, unspecified; R07.89 Other chest pain; K22.70 Barrett's esophagus without dysplasia; K58.9 Irritable bowel syndrome, unspecified; R60.0 Localized edema; F39 Unspecified mood [affective] disorder; F29 Unspecified psychosis not due to a substance or known physiological condition; F41.8 Other specified anxiety disorders; Z98.1 Arthrodesis status; Z79.4 Long term (current) use of insulin; Z87.442 Personal history of urinary calculi; Z96.642 Presence of left artificial hip joint; Z79.899 Other long term (current) drug therapy; Z79.1 Long term (current) use of non-steroidal anti-inflammatories (NSAID); Z88.0 Allergy status to penicillin; Z88.1 Allergy status to other antibiotic agents; Z88.2 Allergy status to sulfonamides; Z88.5 Allergy status to narcotic agent

== ENCOUNTER → 2022-03-06 | Outpatient (CLI) | payer MEDICARE, MEDICAID ==
[~2022-03-06] MED LIST changes: +BISO5TAB14 PO; +GABA800T4 PO; +LEFL1TAB4 PO; +MELO15TA28 PO; +SENN-23 PO; +TRES1INJ2 SC; +VICT18IN SC; +ZOLP5TAB PO; +[UNRECOGNIZED DRUG - CODE] TOP
[2022-03-06 13:51] LABS: BASO # 0.1 10^3/uL (0.0-0.2); BASO % 0.4 % (0.0-1.0); EOS # 0.3 10^3/uL (0.0-0.5); HEMATOCRIT 38.8 % (42.0-52.0); HEMOGLOBIN 12.1 g/dl (13.5-17.5); LYMPH # 0.7 10^3/uL (1.5-5.0); LYMPH % 4.2 % (24.0-44.0); MEAN CORPUSCULAR HEMOGLOBIN 28.3 pg (27.0-33.0); MEAN CORPUSCULAR HGB CONC 31.2 g/dl (32.0-36.5); MEAN CORPUSCULAR VOLUME 90.7 fl (80.0-96.0); MONO % 11.9 % (2.0-8.0); NEUTROPHILS # 13.3 10^3/uL (1.5-8.5); NEUTROPHILS % 81.1 % (36.0-66.0); PLATELET COUNT, AUTOMATED 300 10^3/uL (150-450); RED BLOOD COUNT 4.28 10^6/uL (4.30-6.10); WHITE BLOOD COUNT 16.4 10^3/uL (4.0-10.0)
[2022-03-06 14:03] LABS: BLOOD UREA NITROGEN 21 MG/DL (7-18); CALCIUM LEVEL 9.8 MG/DL (8.8-10.2); CARBON DIOXIDE LEVEL 29 MEQ/L (21-32); CHLORIDE LEVEL 102 MEQ/L (98-107); CREATININE FOR GFR 0.94 MG/DL (0.70-1.30); GLOMERULAR FILTRATION RATE > 60.0 (>49); GLUCOSE, FASTING 252 MG/DL (70-100); SODIUM LEVEL 135 MEQ/L (136-145)
[2022-03-06 14:39] LABS: CORTISOL AM 21.1 UG/DL (4.3-22.4)
== END ==
LOC: M PLALAB 09:34
PROVIDERS: ATTEND Internal Medicine Hematology
DX: E11.9 Type 2 diabetes mellitus without complications (principal)

== ENCOUNTER → 2022-03-15 | Outpatient (REF) | payer MEDICARE, MEDICAID | LOC: M SFHCPLAZ 16:54 | PROVIDERS: ATTEND Physician Assistant | DX: R05.1 Acute cough (principal) ==

== ENCOUNTER → 2022-03-21 | Outpatient (CLI) | payer MEDICARE, MEDICAID ==
[2022-03-21 12:14] LABS: HEMATOCRIT 37.7 % (42.0-52.0); MEAN CORPUSCULAR HGB CONC 31.8 g/dl (32.0-36.5); MEAN CORPUSCULAR VOLUME 91.1 fl (80.0-96.0); PLATELET COUNT, AUTOMATED 337 10^3/uL (150-450); RED BLOOD COUNT 4.14 10^6/uL (4.30-6.10); WHITE BLOOD COUNT 5.2 10^3/uL (4.0-10.0)
[2022-03-21 12:37] LABS: HEMOGLOBIN A1c 9.5 %
[2022-03-21 13:05] LABS: ALBUMIN 3.8 GM/DL (3.2-5.2); ALT/SGPT 47 U/L (12-78); BILIRUBIN,TOTAL 0.3 MG/DL (0.2-1.0); BLOOD UREA NITROGEN 18 MG/DL (7-18); CALCIUM LEVEL 10.1 MG/DL (8.8-10.2); CARBON DIOXIDE LEVEL 30 MEQ/L (21-32); CHLORIDE LEVEL 101 MEQ/L (98-107); CHOLESTEROL LEVEL 186 MG/DL (<200); CHOLESTEROL RISK RATIO 4.536 (<5); CREATININE FOR GFR 1.03 MG/DL (0.70-1.30); FREE T4 0.94 NG/DL (0.76-1.46); GLOMERULAR FILTRATION RATE > 60.0 (>49); GLUCOSE, FASTING 261 MG/DL (70-100); HDL CHOLESTEROL 41 MG/DL (>40); IRON (FE) 67 UG/DL (65-175); NON-HDL-C 145 MG/DL; PERCENT SATURATION 20.6 % (19.7-50.0); POTASSIUM SERUM 4.5 MEQ/L (3.5-5.1); SODIUM LEVEL 135 MEQ/L (136-145); THYROID STIMULATING HORMONE 0.491 uIU/ML (0.358-3.740); TOTAL IRON BINDING CAPACITY 325 UG/DL (250-450); TOTAL PROTEIN 7.8 GM/DL (6.4-8.2); TRIGLYCERIDES LEVEL 473 MG/DL (<150)
[2022-03-21 13:06] LABS: CREATININE, URINE 18.1 MG/DL; MALB URINE SIEMENS 14.2 MG/L; MAU/CREAT RATIO 78.4 MCG/MG (0.0-30.0)
[2022-03-21 13:36] LABS: TOTAL 25(OH) VITAMIN D 45.3 NG/ML (30.0-100.0); VITAMIN B12 LEVEL 722 PG/ML (247-911)
== END ==
LOC: M PLALAB 08:29
PROVIDERS: ATTEND Internal Medicine Hematology
DX: D50.9 Iron deficiency anemia, unspecified (principal); E11.9 Type 2 diabetes mellitus without complications; Z79.899 Other long term (current) drug therapy

== ENCOUNTER → 2022-04-08 | Outpatient (REF) | payer MEDICARE, MEDICAID ==
[2022-04-08 14:56] LABS: CLOSTRIDIUM DIFFICILE PCR NEGATIVE (NEGATIVE)
== END ==
LOC: M LAB REF 13:44
PROVIDERS: ATTEND Physician Assistant
DX: A04.71 Enterocolitis due to Clostridium difficile, recurrent (principal)

== ENCOUNTER → 2022-04-12 | Outpatient (CLI) | payer MEDICARE, MEDICAID | LOC: M WHC 08:13 | PROVIDERS: ATTEND Internal Medicine Hematology | DX: I83.893 Varicose veins of bilateral lower extremities with other complications (principal) ==

== ENCOUNTER → 2022-05-29 | Outpatient (CLI) | payer MEDICARE ==
[2022-05-29 15:13] LABS: HEMATOCRIT 37.3 % (42.0-52.0); HEMOGLOBIN 11.7 g/dl (13.5-17.5); MEAN CORPUSCULAR HEMOGLOBIN 28.5 pg (27.0-33.0); MEAN CORPUSCULAR HGB CONC 31.4 g/dl (32.0-36.5); PLATELET COUNT, AUTOMATED 277 10^3/uL (150-450); WHITE BLOOD COUNT 5.2 10^3/uL (4.0-10.0)
[2022-05-29 16:04] LABS: ALBUMIN 3.9 G/DL (3.2-5.2); ALKALINE PHOSPHATASE 77 U/L (46-116); ALT/SGPT 31 U/L (7.0-40); AST/SGOT 25 U/L (<34); BILIRUBIN,TOTAL 0.4 MG/DL (0.3-1.2); BLOOD UREA NITROGEN 23 MG/DL (9-23); CALCIUM LEVEL 9.6 MG/DL (8.3-10.6); CARBON DIOXIDE LEVEL 29 MMOL/L (20-31); CHLORIDE LEVEL 101 MMOL/L (98-107); CHOLESTEROL LEVEL 124 MG/DL (<200); CREATININE FOR GFR 0.89 MG/DL (0.70-1.30); GLOMERULAR FILTRATION RATE > 60.0 (>49); GLUCOSE, FASTING 350 MG/DL (74-106); HDL CHOLESTEROL 39.9 MG/DL (>40); LDL CHOLESTEROL 37.3 MG/DL (<100); NON-HDL-C 84 MG/DL; POTASSIUM SERUM 5.1 MMOL/L (3.5-5.1); SODIUM LEVEL 138 MMOL/L (136-145); TOTAL PROTEIN 7.1 G/DL (5.7-8.2); TRIGLYCERIDES LEVEL 234 MG/DL (<150)
[2022-05-29 16:08] LABS: FREE T4 0.99 NG/DL (0.89-1.76)
[2022-05-29 16:09] LABS: THYROID STIMULATING HORMONE 1.051 uIU/ML (0.55-4.78)
[2022-05-29 16:11] LABS: TOTAL 25(OH) VITAMIN D 41.2 NG/ML (20.0-100.0)
[2022-05-29 16:12] LABS: VITAMIN B12 LEVEL 561 PG/ML (211-911)
[2022-05-29 16:24] LABS: CREATININE, URINE 54.1 MG/DL
[2022-05-29 22:56] LABS: HEMOGLOBIN A1c 9.8 % (4.0-6.0)
== END ==
LOC: M PLALAB 10:32
PROVIDERS: ATTEND Internal Medicine Hematology
DX: I82.411 Acute embolism and thrombosis of right femoral vein (principal); E07.9 Disorder of thyroid, unspecified; E78.00 Pure hypercholesterolemia, unspecified; Z12.5 Encounter for screening for malignant neoplasm of prostate
CPT/HCPCS: 36415; 80053; 80061; 82043; 82306; 82607; 83036; 84439; 84443; 85027; 86140; G0103

== ENCOUNTER 2022-07-19 13:33 | Inpatient (IN) | payer MEDICARE, MEDICAID ==
[~2022-07-19] VITALS: Ht 170.2 cm; Wt 77.0 kg
[2022-07-19] MEDS ORDERED: diazePAM 10MG/2ML SYRINGE IV ONE (15:00)
[2022-07-19] MEDS ORDERED: NS 1,000 ML IV ONE (15:00)
[2022-07-19] MEDS ORDERED: ONDANSETRON 4MG 2ML VIAL IV ONE (15:00)
[2022-07-19] MEDS ORDERED: ISOVUE-370 76% 100ML VIAL As Ordered ONE (15:10)
[2022-07-19 15:13] LABS: BASO # 0.1 10^3/uL (0.0-0.2); BASO % 0.4 % (0.0-1.0); EOS # 0.3 10^3/uL (0.0-0.5); EOS % 1.4 % (0.0-3.0); HEMATOCRIT 37.9 % (42.0-52.0); HEMOGLOBIN 12.3 g/dl (13.5-17.5); LYMPH # 0.5 10^3/uL (1.5-5.0); LYMPH % 2.9 % (24.0-44.0); MEAN CORPUSCULAR HEMOGLOBIN 28.3 pg (27.0-33.0); MEAN CORPUSCULAR HGB CONC 32.5 g/dl (32.0-36.5); MEAN CORPUSCULAR VOLUME 87.1 fl (80.0-96.0); MONO % 8.9 % (2.0-8.0); NEUTROPHILS % 85.9 % (36.0-66.0); PLATELET COUNT, AUTOMATED 276 10^3/uL (150-450); RED BLOOD COUNT 4.35 10^6/uL (4.30-6.10); WHITE BLOOD COUNT 18.6 10^3/uL (4.0-10.0)
[2022-07-19 15:43] LABS: LIPASE 29 U/L (12-53)
[2022-07-19 15:45] LABS: ALBUMIN 3.9 G/DL (3.2-5.2); ALKALINE PHOSPHATASE 84 U/L (46-116); ALT/SGPT 32 U/L (7.0-40); AST/SGOT 25 U/L (<34); BILIRUBIN,DIRECT 0.2 MG/DL (<0.4); BILIRUBIN,TOTAL 0.6 MG/DL (0.3-1.2); CK-MB VALUE MASS 1.2 NG/ML (<3.6); CPK CREATINE PHOSPHOKINASE 58 U/L (46-171); MB/CK RELATIVE INDEX 2.06 (< OR =4); TOTAL PROTEIN 7.6 G/DL (5.7-8.2)
[2022-07-19 15:58] LABS: MONO # 1.7 10^3/uL (0.0-0.8)
[2022-07-19 16:58] LABS: VENOUS BASE EXCESS -1.1 (-2.0-2.0); VENOUS HCO3 26.1 MEQ/L (23.0-27.0); VENOUS O2 SATURATION 59.8 % (60.0-80.0); VENOUS PARTIAL PRESSURE CO2 54.5 mmHg (38.0-50.0); VENOUS PARTIAL PRESSURE O2 34.1 mmHg (30.0-50.0); VENOUS PH 7.298 UNITS (7.330-7.430); VENOUS STANDARD HCO3 22.8 MEQ/L; VENOUS TOTAL CO2 27.8 MEQ/L (24.0-28.0)
[2022-07-19 17:27] LABS: HEMOGLOBIN A1c 12.8 % (4.0-6.0)
[2022-07-19] MEDS ORDERED: METOCLOPRAMIDE INJ 10MG/2ML VIAL IV ONE (17:45)
[2022-07-19 19:17] LABS: RSV AMPLIFICATION NEGATIVE (NEGATIVE)
[2022-07-19] MEDS: INSULIN LISPRO (NovoLOG) PER UNIT SC SCH (21:00)
[2022-07-19] MEDS ORDERED: DOXE25CA PO (21:16)
[2022-07-19] MEDS ORDERED: ELIQ5TAB PO (21:18)
[2022-07-19] MEDS ORDERED: ONDA4TAB6 SL (21:18)
[2022-07-19] MEDS ORDERED: AZEL1SPR3 (21:18)
[2022-07-19] MEDS ORDERED: TAMS1CAP17 PO (21:20)
[2022-07-19] MEDS ORDERED: FURO20TA2 PO (21:20)
[2022-07-19] MEDS ORDERED: FAMO40TA3 PO (21:20)
[2022-07-19] MEDS ORDERED: HOME MED LIST COMPLETE! XX SCH (21:25)
[2022-07-19] MEDS ORDERED: DEXTROSE 50% 50ML SYRINGE IV PRN (21:35)
[2022-07-19] MEDS ORDERED: GLUCAGON INJ 1MG VIAL SC PRN (21:35)
[2022-07-19] MEDS ORDERED: DOXEPIN 25 MG CAP PO SCH (21:35)
[2022-07-19] MEDS ORDERED: LEVEMIR (INSULIN DETEMIR) 1 UNITS/0.01ML SC SCH (21:35)
[2022-07-19] MEDS ORDERED: HEPARIN SOD (PORCINE) 5000UNITS/ML 1ML VIAL/SYRINGE SC SCH (21:35)
[2022-07-19] MEDS ORDERED: GLUCOSE 4GM CHEW TABLET PO PRN (21:35)
[2022-07-19] MEDS: GABAPENTIN 400MG CAP PO SCH (22:38)
[2022-07-19] MEDS: DOXYCYCLINE HYCLATE 100MG TABLET PO SCH (22:38)
[2022-07-19] MEDS: APIXABAN 5 MG TAB (ELIQUIS) PO SCH (22:38)
[2022-07-19] MEDS: bisoproloL fumarate 5 MG TAB PO SCH (22:39)
[2022-07-19] MEDS: FAMOTIDINE 20 MG TAB PO SCH (22:39)
[2022-07-19] MEDS: NS 1,000 ML IV SCH (22:40)
[2022-07-19 23:17] VITALS: BP 134/67
[2022-07-20] VITALS (7 sets, daily range): BP systolic 98–120; BP diastolic 63–89
[2022-07-20 06:15] LABS: ALBUMIN 2.8 G/DL (3.2-5.2); ALKALINE PHOSPHATASE 52 U/L (46-116); ALT/SGPT 21 U/L (7.0-40); AST/SGOT 16 U/L (<34); BILIRUBIN,TOTAL 0.6 MG/DL (0.3-1.2); BLOOD UREA NITROGEN 19 MG/DL (9-23); CALCIUM LEVEL 7.5 MG/DL (8.3-10.6); CARBON DIOXIDE LEVEL 23 MMOL/L (20-31); CHLORIDE LEVEL 104 MMOL/L (98-107); CREATININE FOR GFR 0.77 MG/DL (0.70-1.30); GLOMERULAR FILTRATION RATE > 60.0 (>49); GLUCOSE, FASTING 249 MG/DL (74-106); POTASSIUM SERUM 3.5 MMOL/L (3.5-5.1); SODIUM LEVEL 136 MMOL/L (136-145); TOTAL PROTEIN 5.4 G/DL (5.7-8.2)
[2022-07-20] MEDS: INSULIN LISPRO (NovoLOG) PER UNIT SC SCH ×4 (08:53→20:24)
[2022-07-20] MEDS: NS 1,000 ML IV SCH ×2 (08:53→20:33)
[2022-07-20] MEDS: ROSUVASTATIN 10 MG TAB (CRESTOR) PO SCH (08:53)
[2022-07-20] MEDS: APIXABAN 5 MG TAB (ELIQUIS) PO SCH ×2 (08:53→20:31)
[2022-07-20] MEDS: DOXYCYCLINE HYCLATE 100MG TABLET PO SCH (08:54)
[2022-07-20] MEDS: TAMSULOSIN 0.4 MG CAP PO SCH (08:54)
[2022-07-20] MEDS ORDERED: LOSARTAN 50MG TABLET PO SCH (09:00)
[2022-07-20 09:11] LABS: BASO # 0.1 10^3/uL (0.0-0.2); BASO % 0.5 % (0.0-1.0); EOS # 0.4 10^3/uL (0.0-0.5); EOS % 3.9 % (0.0-3.0); HEMATOCRIT 29.8 % (42.0-52.0); LYMPH # 0.9 10^3/uL (1.5-5.0); LYMPH % 8.7 % (24.0-44.0); MEAN CORPUSCULAR HEMOGLOBIN 28.4 pg (27.0-33.0); MEAN CORPUSCULAR HGB CONC 32.6 g/dl (32.0-36.5); MEAN CORPUSCULAR VOLUME 87.1 fl (80.0-96.0); NEUTROPHILS # 7.3 10^3/uL (1.5-8.5); NEUTROPHILS % 69.7 % (36.0-66.0); PLATELET COUNT, AUTOMATED 231 10^3/uL (150-450); RED BLOOD COUNT 3.42 10^6/uL (4.30-6.10); WHITE BLOOD COUNT 10.4 10^3/uL (4.0-10.0)
[2022-07-20 09:12] LABS: MONO # 1.8 10^3/uL (0.0-0.8)
[2022-07-20 09:13] LABS: HEMOGLOBIN 9.7 g/dl (13.5-17.5)
[2022-07-20] MEDS ORDERED: PREVNAR-20 VACCINE 0.5ML SYRINGE IM.IMMUN ONE (10:00)
[2022-07-20] MEDS ORDERED: LOPERAMIDE 2 MG CAPLET PO PRN (10:55)
[2022-07-20 11:39] LABS: VITAMIN B12 LEVEL 450 PG/ML (211-911)
[2022-07-20] MEDS: GABAPENTIN 400MG CAP PO SCH (20:31)
[2022-07-20] MEDS: bisoproloL fumarate 5 MG TAB PO SCH (20:32)
[2022-07-20] MEDS: FAMOTIDINE 20 MG TAB PO SCH (20:33)
[2022-07-20] MEDS ORDERED: LEVEMIR (INSULIN DETEMIR) 1 UNITS/0.01ML SC SCH (21:00)
[2022-07-20] MEDS ORDERED: DOXEPIN 25 MG CAP PO SCH (21:00)
[2022-07-20] MEDS ORDERED: RAMELTEON 8 MG TAB (ROZEREM) PO PRN (21:35)
[2022-07-20] MEDS: ACETAMINOPHEN TAB 650MG DOSE (2X325MG) PO PRN (22:11)
[2022-07-21 05:45] VITALS: BP 110/69
[2022-07-21 06:24] LABS: BASO % 0.6 % (0.0-1.0); EOS # 0.4 10^3/uL (0.0-0.5); EOS % 6.5 % (0.0-3.0); HEMOGLOBIN 8.8 g/dl (13.5-17.5); LYMPH # 1.4 10^3/uL (1.5-5.0); LYMPH % 21.7 % (24.0-44.0); MEAN CORPUSCULAR HEMOGLOBIN 27.7 pg (27.0-33.0); MEAN CORPUSCULAR HGB CONC 31.4 g/dl (32.0-36.5); MEAN CORPUSCULAR VOLUME 88.1 fl (80.0-96.0); MONO # 0.8 10^3/uL (0.0-0.8); MONO % 13.4 % (2.0-8.0); NEUTROPHILS # 3.6 10^3/uL (1.5-8.5); NEUTROPHILS % 57.6 % (36.0-66.0); PLATELET COUNT, AUTOMATED 184 10^3/uL (150-450); RED BLOOD COUNT 3.18 10^6/uL (4.30-6.10); WHITE BLOOD COUNT 6.3 10^3/uL (4.0-10.0)
[2022-07-21 06:47] LABS: BLOOD UREA NITROGEN 13 MG/DL (9-23); CALCIUM LEVEL 7.4 MG/DL (8.3-10.6); CARBON DIOXIDE LEVEL 26 MMOL/L (20-31); CHLORIDE LEVEL 112 MMOL/L (98-107); CREATININE FOR GFR 0.81 MG/DL (0.70-1.30); GLOMERULAR FILTRATION RATE > 60.0 (>49); GLUCOSE, FASTING 145 MG/DL (74-106); SODIUM LEVEL 142 MMOL/L (136-145)
[2022-07-21] MEDS: APIXABAN 5 MG TAB (ELIQUIS) PO SCH (07:47)
[2022-07-21] MEDS: TAMSULOSIN 0.4 MG CAP PO SCH (07:47)
[2022-07-21] MEDS: INSULIN LISPRO (NovoLOG) PER UNIT SC SCH ×2 (07:48→13:32)
[2022-07-21] MEDS: ROSUVASTATIN 10 MG TAB (CRESTOR) PO SCH (07:48)
[2022-07-21] MEDS: ACETAMINOPHEN TAB 650MG DOSE (2X325MG) PO PRN (07:49)
[2022-07-21] MEDS ORDERED: LEFLUNOMIDE PO SCH (09:00)
[2022-07-21 10:14] VITALS: BP_SYST 110; BP_SYST 124; BP_SYST 130; BP_DIAS 40; BP_DIAS 60; BP_DIAS 82
[2022-07-21] MEDS ORDERED: MECLIZINE 12.5 MG TAB PO PRN (11:55)
[2022-07-21 13:33] LABS: HEMATOCRIT 29.7 % (42.0-52.0); HEMOGLOBIN 9.6 g/dl (13.5-17.5)
[2022-07-21 14:00] VITALS: BP_SYST 113; BP_SYST 116; BP_SYST 123; BP_DIAS 70
[2022-07-21] MEDS ORDERED: MECL-136 PO (16:01)
== END 2022-07-21 18:30 | disposition home or self-care (01) | DRG 312 ==
LOC: M ED 13:33 → M ED INP 20:08 → M MSPAV 23:17
PROVIDERS: ADMIT Internal Medicine; ATTEND Internal Medicine
PROC: B246ZZZ Ultrasonography of Right and Left Heart (ICD-10-PCS; principal; 2022-07-20)
DX: I95.1 Orthostatic hypotension (principal); M06.9 Rheumatoid arthritis, unspecified; E11.42 Type 2 diabetes mellitus with diabetic polyneuropathy; K21.9 Gastro-esophageal reflux disease without esophagitis; I10 Essential (primary) hypertension; N40.0 Benign prostatic hyperplasia without lower urinary tract symptoms; R25.3 Fasciculation; M62.541 Muscle wasting and atrophy, not elsewhere classified, right hand; M62.542 Muscle wasting and atrophy, not elsewhere classified, left hand; M62.571 Muscle wasting and atrophy, not elsewhere classified, right ankle and foot; M62.572 Muscle wasting and atrophy, not elsewhere classified, left ankle and foot; E11.43 Type 2 diabetes mellitus with diabetic autonomic (poly)neuropathy; E86.0 Dehydration; H93.19 Tinnitus, unspecified ear; D64.9 Anemia, unspecified; R19.7 Diarrhea, unspecified; E78.5 Hyperlipidemia, unspecified; H81.10 Benign paroxysmal vertigo, unspecified ear; E11.65 Type 2 diabetes mellitus with hyperglycemia; M21.531 Acquired clawfoot, right foot; M21.532 Acquired clawfoot, left foot; J32.9 Chronic sinusitis, unspecified; K22.70 Barrett's esophagus without dysplasia; Z79.01 Long term (current) use of anticoagulants; Z79.4 Long term (current) use of insulin; Z79.899 Other long term (current) drug therapy; Z86.711 Personal history of pulmonary embolism; Z88.0 Allergy status to penicillin; Z86.718 Personal history of other venous thrombosis and embolism; Z88.1 Allergy status to other antibiotic agents; Z88.5 Allergy status to narcotic agent; Z88.2 Allergy status to sulfonamides

== ENCOUNTER → 2022-09-03 | Outpatient (CLI) | payer MEDICARE, MEDICAID ==
[~2022-09-03] MED LIST changes: +AZEL1SPR3; +DOXE25CA PO; +ELIQ5TAB PO; +FAMO40TA3 PO; +FURO20TA2 PO; +MECL-136 PO; +ONDA4TAB6 SL; +TAMS1CAP17 PO
== END ==
LOC: M RAD 10:32
PROVIDERS: ATTEND Internal Medicine Gastroenterology
DX: K21.9 Gastro-esophageal reflux disease without esophagitis (principal)
CPT/HCPCS: 78264; A9541

== ENCOUNTER → 2022-09-11 | Outpatient (CLI) | payer MEDICARE, MEDICAID ==
[2022-09-11 14:06] LABS: MAGNESIUM LEVEL 1.5 MG/DL (1.8-2.4)
== END ==
LOC: M LAB 12:19
PROVIDERS: ATTEND Internal Medicine Gastroenterology
DX: K21.9 Gastro-esophageal reflux disease without esophagitis (principal); K44.9 Diaphragmatic hernia without obstruction or gangrene; K22.70 Barrett's esophagus without dysplasia; R19.7 Diarrhea, unspecified; K52.831 Collagenous colitis; Z79.899 Other long term (current) drug therapy

== ENCOUNTER → 2022-09-11 | Outpatient (CLI) | payer MEDICARE, MEDICAID ==
[2022-09-11 12:36] LABS: BASO # 0.1 10^3/uL (0.0-0.2); BASO % 1.4 % (0.0-1.0); EOS # 0.3 10^3/uL (0.0-0.5); EOS % 3.4 % (0.0-3.0); HEMATOCRIT 33.8 % (42.0-52.0); HEMOGLOBIN 10.6 g/dl (13.5-17.5); LYMPH # 0.8 10^3/uL (1.5-5.0); LYMPH % 10.5 % (24.0-44.0); MEAN CORPUSCULAR HEMOGLOBIN 27.6 pg (27.0-33.0); MEAN CORPUSCULAR HGB CONC 31.4 g/dl (32.0-36.5); MONO # 0.8 10^3/uL (0.0-0.8); MONO % 10.5 % (2.0-8.0); NEUTROPHILS # 5.7 10^3/uL (1.5-8.5); NEUTROPHILS % 73.9 % (36.0-66.0); PLATELET COUNT, AUTOMATED 283 10^3/uL (150-450); RED BLOOD COUNT 3.84 10^6/uL (4.30-6.10); WHITE BLOOD COUNT 7.7 10^3/uL (4.0-10.0)
== END ==
LOC: M LAB 11:24
PROVIDERS: ATTEND Physician Assistant
DX: T14.8XXA Other injury of unspecified body region, initial encounter (principal); X58.XXXA Exposure to other specified factors, initial encounter; Y92.9 Unspecified place or not applicable; Y93.9 Activity, unspecified; Y99.9 Unspecified external cause status; Z79.899 Other long term (current) drug therapy

== ENCOUNTER → 2022-10-01 | Outpatient (CLI) | payer MEDICARE ==
[2022-10-01 19:37] LABS: HEMATOCRIT 34.7 % (42.0-52.0); HEMOGLOBIN 10.7 g/dl (13.5-17.5); MEAN CORPUSCULAR HEMOGLOBIN 27.6 pg (27.0-33.0); MEAN CORPUSCULAR HGB CONC 30.8 g/dl (32.0-36.5); MEAN CORPUSCULAR VOLUME 89.4 fl (80.0-96.0); PLATELET COUNT, AUTOMATED 317 10^3/uL (150-450); RED BLOOD COUNT 3.88 10^6/uL (4.30-6.10); WHITE BLOOD COUNT 5.2 10^3/uL (4.0-10.0)
[2022-10-01 19:54] LABS: MAU/CREAT RATIO 55.8 MCG/MG (0.0-30.0)
[2022-10-01 19:57] LABS: IRON (FE) 69 UG/DL (65-175)
[2022-10-01 19:58] LABS: C REACTIVE PROTEIN QUANTITATIV < 0.40 MG/DL (<1.0); FERRITIN 89.3 NG/ML (10.5-307.3); HEMOGLOBIN A1c 12.2 % (4.0-6.0); PERCENT SATURATION 25.3 % (19.7-50.0); TOTAL IRON BINDING CAPACITY 273 UG/DL (250-425)
[2022-10-01 19:59] LABS: THYROID STIMULATING HORMONE 0.475 uIU/ML (0.55-4.78)
[2022-10-01 20:00] LABS: FREE T4 0.93 NG/DL (0.89-1.76); VITAMIN B12 LEVEL 470 PG/ML (211-911)
[2022-10-01 20:16] LABS: ALBUMIN 3.6 G/DL (3.2-5.2); ALKALINE PHOSPHATASE 77 U/L (46-116); ALT/SGPT 40 U/L (7.0-40); AST/SGOT 27 U/L (<34); BILIRUBIN,TOTAL 0.3 MG/DL (0.3-1.2); BLOOD UREA NITROGEN 15 MG/DL (9-23); CARBON DIOXIDE LEVEL 29 MMOL/L (20-31); CHLORIDE LEVEL 100 MMOL/L (98-107); CHOLESTEROL LEVEL 135 MG/DL (<200); CHOLESTEROL RISK RATIO 3.27 (<5); CREATININE FOR GFR 0.65 MG/DL (0.70-1.30); GLOMERULAR FILTRATION RATE > 60.0 (>49); GLUCOSE, FASTING 424 MG/DL (74-106); HDL CHOLESTEROL 41.2 MG/DL (>40); LDL CHOLESTEROL 39.8 MG/DL (<100); NON-HDL-C 93.8 MG/DL; SODIUM LEVEL 136 MMOL/L (136-145); TOTAL PROTEIN 6.6 G/DL (5.7-8.2); TRIGLYCERIDES LEVEL 270 MG/DL (<150)
== END ==
LOC: M PLALAB 15:27
PROVIDERS: ATTEND Internal Medicine Hematology
DX: Z01.818 Encounter for other preprocedural examination (principal); D50.9 Iron deficiency anemia, unspecified; E11.9 Type 2 diabetes mellitus without complications; Z79.899 Other long term (current) drug therapy

== ENCOUNTER 2022-10-02 06:16 | Day surgery (SDC) | payer MEDICARE ==
[~2022-10-02] VITALS: Ht 177.8 cm; Wt 80.7 kg
[~2022-10-02 06:16] MED LIST changes: +BSS IRRIG/VANCO(10MG)/TOBRA(5MG)/EPINEPH(1:1000-0.5CC)500ML BAG-ORONLY IR ONE; +CYCLOPENTOLATE 1% OPHTH SOLN 2ML BTL OS SCH; +LIDOCAINE 3.5 % 1ML OPHTH TOPICAL GEL OU ONE; +OFLOXACIN 0.3 % (OCUFLOX) OPTH SOL 5ML OS ONE; +PHENYLEPHRINE 10% OPHTH SOL 5ML OS PRN; +PHENYLEPHRINE 2.5% OPHTH SOL 2ML OS SCH; +TROPICAMIDE 1% OPHTH SOLN 15ML OS SCH
[2022-10-02] MEDS ORDERED: LIDOCAINE 1% SDV 5ML VIAL As Ordered ONE (07:09)
[2022-10-02] MEDS ORDERED: MIDAZOLAM INJ 2MG/2ML VIAL As Ordered ONE (07:35)
[2022-10-02] MEDS ORDERED: fentaNYL 100 MCG/2 ML INJECTION As Ordered ONE (07:35)
[2022-10-02] MEDS ORDERED: INSULIN LISPRO (NovoLOG) PER UNIT SC PRN (08:20)
[2022-10-02 10:15] VITALS: BP 143/88
== END 2022-10-02 14:24 | disposition home or self-care (01) ==
LOC: M SDC 06:16
PROVIDERS: ATTEND Ophthalmology
DX: H25.12 Age-related nuclear cataract, left eye (principal); I10 Essential (primary) hypertension; E78.5 Hyperlipidemia, unspecified; G47.30 Sleep apnea, unspecified; J45.909 Unspecified asthma, uncomplicated; E11.9 Type 2 diabetes mellitus without complications; Z88.1 Allergy status to other antibiotic agents; Z88.0 Allergy status to penicillin; Z88.2 Allergy status to sulfonamides; Z88.8 Allergy status to other drugs, medicaments and biological substances; Z79.899 Other long term (current) drug therapy; Z79.01 Long term (current) use of anticoagulants
CPT/HCPCS: 66984; J1815; J2250; J3010; V2632

== ENCOUNTER 2022-10-14 06:42 | Day surgery (SDC) | payer MEDICARE, MEDICAID ==
[~2022-10-14] VITALS: Ht 177.8 cm; Wt 80.7 kg
[~2022-10-14 06:42] MED LIST changes: -BSS IRRIG/VANCO(10MG)/TOBRA(5MG)/EPINEPH(1:1000-0.5CC)500ML BAG-ORONLY IR ONE; +CEFUROXIME 1MG/0.1ML INTRACAMERAL INJ As Ordered ONE; -CYCLOPENTOLATE 1% OPHTH SOLN 2ML BTL OS SCH; +LIDOCAINE 1% SDV 5ML VIAL As Ordered ONE; -LIDOCAINE 3.5 % 1ML OPHTH TOPICAL GEL OU ONE; -OFLOXACIN 0.3 % (OCUFLOX) OPTH SOL 5ML OS ONE; +PHENYLEPHRINE 10% OPHTH SOL 5ML OD PRN; -PHENYLEPHRINE 10% OPHTH SOL 5ML OS PRN; -PHENYLEPHRINE 2.5% OPHTH SOL 2ML OS SCH; -TROPICAMIDE 1% OPHTH SOLN 15ML OS SCH
[2022-10-14] MEDS ORDERED: INSULIN LISPRO (NovoLOG) PER UNIT SC PRN (06:50)
[2022-10-14] MEDS ORDERED: CYCLOPENTOLATE 1% OPHTH SOLN 2ML BTL OD SCH (07:00)
[2022-10-14] MEDS ORDERED: PHENYLEPHRINE 2.5% OPHTH SOL 2ML OD SCH (07:00)
[2022-10-14] MEDS ORDERED: LIDOCAINE 3.5 % 1ML OPHTH TOPICAL GEL OU ONE (07:00)
[2022-10-14] MEDS ORDERED: TROPICAMIDE 1% OPHTH SOLN 15ML OD SCH (07:00)
[2022-10-14] MEDS ORDERED: BSS IRRIG/VANCO(10MG)/TOBRA(5MG)/EPINEPH(1:1000-0.5CC)500ML BAG-ORONLY IR ONE (07:00)
[2022-10-14] MEDS ORDERED: OFLOXACIN 0.3 % (OCUFLOX) OPTH SOL 5ML OD ONE (07:00)
[2022-10-14] MEDS ORDERED: MIDAZOLAM 5MG/ML 1ML VIAL As Ordered ONE (07:19)
[2022-10-14 09:00] VITALS: BP 166/88
== END 2022-10-14 12:16 | disposition home or self-care (01) ==
LOC: M SDC 06:42
PROVIDERS: ATTEND Ophthalmology
DX: H25.11 Age-related nuclear cataract, right eye (principal); E11.9 Type 2 diabetes mellitus without complications; I10 Essential (primary) hypertension; E78.00 Pure hypercholesterolemia, unspecified; K21.9 Gastro-esophageal reflux disease without esophagitis; Z86.718 Personal history of other venous thrombosis and embolism; Z86.19 Personal history of other infectious and parasitic diseases; M19.90 Unspecified osteoarthritis, unspecified site; J45.909 Unspecified asthma, uncomplicated; G47.30 Sleep apnea, unspecified; M06.9 Rheumatoid arthritis, unspecified; K58.9 Irritable bowel syndrome, unspecified; G47.00 Insomnia, unspecified; D50.9 Iron deficiency anemia, unspecified; Z86.711 Personal history of pulmonary embolism; Z88.1 Allergy status to other antibiotic agents; Z88.5 Allergy status to narcotic agent; Z88.0 Allergy status to penicillin; Z88.2 Allergy status to sulfonamides; Z79.899 Other long term (current) drug therapy; Z79.01 Long term (current) use of anticoagulants; Z79.84 Long term (current) use of oral hypoglycemic drugs
CPT/HCPCS: 66984; J1815; J2250; V2632

== ENCOUNTER → 2022-11-21 | Outpatient (CLI) | payer MEDICARE, MEDICAID ==
[~2022-11-21] MED LIST changes: -CEFUROXIME 1MG/0.1ML INTRACAMERAL INJ As Ordered ONE; -LIDOCAINE 1% SDV 5ML VIAL As Ordered ONE; -LOSA100T45; -LOSA100T45 PO; +LOSA100T46; +LOSA100T46 PO; -PHENYLEPHRINE 10% OPHTH SOL 5ML OD PRN
[2022-11-21 17:21] LABS: HEMATOCRIT 35.6 % (42.0-52.0); HEMOGLOBIN 11.2 g/dl (13.5-17.5); MEAN CORPUSCULAR HEMOGLOBIN 27.3 pg (27.0-33.0); MEAN CORPUSCULAR HGB CONC 31.5 g/dl (32.0-36.5); MEAN CORPUSCULAR VOLUME 86.6 fl (80.0-96.0); PLATELET COUNT, AUTOMATED 334 10^3/uL (150-450); RED BLOOD COUNT 4.11 10^6/uL (4.30-6.10); WHITE BLOOD COUNT 5.7 10^3/uL (4.0-10.0)
[2022-11-21 17:39] LABS: HEMOGLOBIN A1c 12.4 % (4.0-6.0)
[2022-11-21 17:45] LABS: CREATININE, URINE 135.6 MG/DL; MAU/CREAT RATIO 94.3 MCG/MG (0.0-30.0)
[2022-11-21 17:49] LABS: C REACTIVE PROTEIN QUANTITATIV < 0.40 MG/DL (<1.0)
[2022-11-21 17:51] LABS: ALBUMIN 3.8 G/DL (3.2-5.2); ALKALINE PHOSPHATASE 65 U/L (46-116); ALT/SGPT 32 U/L (7.0-40); AST/SGOT 28 U/L (<34); BILIRUBIN,TOTAL 0.5 MG/DL (0.3-1.2); BLOOD UREA NITROGEN 24 MG/DL (9-23); CALCIUM LEVEL 9.1 MG/DL (8.3-10.6); CARBON DIOXIDE LEVEL 28 MMOL/L (20-31); CHLORIDE LEVEL 103 MMOL/L (98-107); CHOLESTEROL LEVEL 103 MG/DL (<200); CREATININE FOR GFR 0.95 MG/DL (0.70-1.30); GLOMERULAR FILTRATION RATE > 60.0 (>49); GLUCOSE, FASTING 102 MG/DL (74-106); HDL CHOLESTEROL 44.6 MG/DL (>40); NON-HDL-C 58.4 MG/DL; POTASSIUM SERUM 4.3 MMOL/L (3.5-5.1); SODIUM LEVEL 138 MMOL/L (136-145); TOTAL 25(OH) VITAMIN D 42.1 NG/ML (20.0-100.0); TOTAL PROTEIN 6.8 G/DL (5.7-8.2); TRIGLYCERIDES LEVEL 107 MG/DL (<150); VITAMIN B12 LEVEL 370 PG/ML (211-911)
[2022-11-21 17:52] LABS: THYROID STIMULATING HORMONE 0.663 uIU/ML (0.55-4.78)
[2022-11-21 17:53] LABS: FREE T4 0.95 NG/DL (0.89-1.76)
== END ==
LOC: M WUC 11:13
PROVIDERS: ATTEND Internal Medicine Hematology
DX: E11.9 Type 2 diabetes mellitus without complications (principal)

== ENCOUNTER 2022-12-24 07:49 | Emergency (ER) | payer OTHER, MEDICAID ==
[~2022-12-24] VITALS: Ht 175.3 cm; Wt 75.8 kg
[2022-12-24 10:25] LABS: BASO # 0.1 10^3/uL (0.0-0.2); BASO % 1.5 % (0.0-1.0); EOS # 0.3 10^3/uL (0.0-0.5); HEMATOCRIT 37.5 % (42.0-52.0); HEMOGLOBIN 12.2 g/dl (13.5-17.5); LYMPH % 18.9 % (24.0-44.0); MEAN CORPUSCULAR HEMOGLOBIN 27.5 pg (27.0-33.0); MEAN CORPUSCULAR HGB CONC 32.5 g/dl (32.0-36.5); MEAN CORPUSCULAR VOLUME 84.5 fl (80.0-96.0); MONO # 0.4 10^3/uL (0.0-0.8); MONO % 8.2 % (2.0-8.0); NEUTROPHILS # 3.5 10^3/uL (1.5-8.5); NEUTROPHILS % 66.2 % (36.0-66.0); PLATELET COUNT, AUTOMATED 298 10^3/uL (150-450); RED BLOOD COUNT 4.44 10^6/uL (4.30-6.10); WHITE BLOOD COUNT 5.2 10^3/uL (4.0-10.0)
[2022-12-24] MEDS ORDERED: NS 1,000 ML IV ONE (10:45)
[2022-12-24 10:54] LABS: ALBUMIN 4.3 G/DL (3.2-5.2); ALKALINE PHOSPHATASE 66 U/L (46-116); ALT/SGPT 67 U/L (7.0-40); AST/SGOT 32 U/L (<34); BILIRUBIN,DIRECT 0.3 MG/DL (<0.4); BILIRUBIN,TOTAL 0.9 MG/DL (0.3-1.2); BLOOD UREA NITROGEN 24 MG/DL (9-23); CALCIUM LEVEL 9.8 MG/DL (8.3-10.6); CARBON DIOXIDE LEVEL 27 MMOL/L (20-31); CHLORIDE LEVEL 102 MMOL/L (98-107); CREATININE FOR GFR 0.84 MG/DL (0.70-1.30); GLOMERULAR FILTRATION RATE > 60.0 (>49); GLUCOSE, FASTING 153 MG/DL (74-106); POTASSIUM SERUM 4.8 MMOL/L (3.5-5.1); SODIUM LEVEL 135 MMOL/L (136-145); TOTAL PROTEIN 7.3 G/DL (5.7-8.2)
[2022-12-24 10:56] LABS: OSMOLALITY SERUM 293 MOSM/KG (280-301); THYROID STIMULATING HORMONE 0.609 uIU/ML (0.55-4.78)
[2022-12-24 15:15] LABS: MAGNESIUM LEVEL 1.6 MG/DL (1.8-2.4)
[2022-12-24] MEDS ORDERED: MAGNESIUM OXIDE 400MG TAB (MAG-OX) PO ONE (15:20)
[2022-12-24 16:09] VITALS: BP 167/80; TEMP 97.6; O2SAT 99
== END 2022-12-24 16:13 | disposition home or self-care (01) ==
LOC: M ED 07:49
DX: E86.0 Dehydration (principal); E83.42 Hypomagnesemia; E11.9 Type 2 diabetes mellitus without complications; I10 Essential (primary) hypertension; J45.909 Unspecified asthma, uncomplicated; M54.50 Low back pain, unspecified; Z86.718 Personal history of other venous thrombosis and embolism; K58.9 Irritable bowel syndrome, unspecified; K22.70 Barrett's esophagus without dysplasia; Z88.0 Allergy status to penicillin; Z88.2 Allergy status to sulfonamides; Z88.4 Allergy status to anesthetic agent; Z88.8 Allergy status to other drugs, medicaments and biological substances; Z88.5 Allergy status to narcotic agent; Z79.899 Other long term (current) drug therapy; Z79.4 Long term (current) use of insulin; Z79.01 Long term (current) use of anticoagulants

== ENCOUNTER → 2023-01-13 | Outpatient (CLI) | payer OTHER, MEDICAID ==
[~2023-01-13] MED LIST changes: +ISOVUE-370 76% 100ML VIAL ONE
== END ==
LOC: M PLAIMG 12:52
PROVIDERS: ATTEND Internal Medicine Hematology
DX: R90.82 White matter disease, unspecified (principal); G31.1 Senile degeneration of brain, not elsewhere classified
CPT/HCPCS: 70470; Q9967

== ENCOUNTER → 2023-01-22 | Outpatient (REF) | payer OTHER, MEDICAID ==
[~2023-01-22] MED LIST changes: +DUPI300P; +HYDR-643 PO; -ISOVUE-370 76% 100ML VIAL ONE; +NEXI40CA PO; +ONDA4TAB6 PO
[2023-01-22 17:32] LABS: BASO # 0.1 10^3/uL (0.0-0.2); BASO % 1.2 % (0.0-1.0); EOS # 0.4 10^3/uL (0.0-0.5); EOS % 5.5 % (0.0-3.0); HEMOGLOBIN 10.9 g/dl (13.5-17.5); LYMPH # 1.5 10^3/uL (1.5-5.0); LYMPH % 19.1 % (24.0-44.0); MEAN CORPUSCULAR HEMOGLOBIN 28.1 pg (27.0-33.0); MEAN CORPUSCULAR VOLUME 85.1 fl (80.0-96.0); MONO # 0.6 10^3/uL (0.0-0.8); MONO % 7.9 % (2.0-8.0); NEUTROPHILS % 65.4 % (36.0-66.0); PLATELET COUNT, AUTOMATED 326 10^3/uL (150-450); RED BLOOD COUNT 3.88 10^6/uL (4.30-6.10); WHITE BLOOD COUNT 7.6 10^3/uL (4.0-10.0)
[2023-01-22 18:07] LABS: FERRITIN 112.7 NG/ML (10.5-307.3)
[2023-01-22 18:14] LABS: ALBUMIN 3.8 G/DL (3.2-5.2); ALKALINE PHOSPHATASE 100 U/L (46-116); ALT/SGPT 128 U/L (7.0-40); AST/SGOT 59 U/L (<34); BILIRUBIN,TOTAL 0.5 MG/DL (0.3-1.2); BLOOD UREA NITROGEN 11 MG/DL (9-23); CALCIUM LEVEL 9.3 MG/DL (8.3-10.6); CARBON DIOXIDE LEVEL 29 MMOL/L (20-31); CHLORIDE LEVEL 100 MMOL/L (98-107); CHOLESTEROL LEVEL 124 MG/DL (<200); CHOLESTEROL RISK RATIO 2.77 (<5); CREATININE FOR GFR 0.79 MG/DL (0.70-1.30); GLOMERULAR FILTRATION RATE > 60.0 (>49); GLUCOSE, FASTING 325 MG/DL (74-106); HDL CHOLESTEROL 44.7 MG/DL (>40); IRON (FE) 63 UG/DL (65-175); LDL CHOLESTEROL 42.1 MG/DL (<100); NON-HDL-C 79.3 MG/DL; PERCENT SATURATION 21.6 % (19.7-50.0); SODIUM LEVEL 138 MMOL/L (136-145); TOTAL IRON BINDING CAPACITY 291 UG/DL (250-425); TOTAL PROTEIN 6.8 G/DL (5.7-8.2); TRIGLYCERIDES LEVEL 186 MG/DL (<150)
[2023-01-22 19:26] LABS: HEMOGLOBIN A1c 10.2 % (4.0-6.0)
== END ==
LOC: M PLALAB 16:48
PROVIDERS: ATTEND Internal Medicine Hematology
DX: E11.9 Type 2 diabetes mellitus without complications (principal)

== ENCOUNTER → 2023-03-19 | Outpatient (REF) | payer OTHER, MEDICAID | LOC: M LAB REF 09:49 | PROVIDERS: ATTEND Internal Medicine Gastroenterology | DX: R19.7 Diarrhea, unspecified (principal); R79.0 Abnormal level of blood mineral; R10.32 Left lower quadrant pain; K58.9 Irritable bowel syndrome, unspecified; K21.9 Gastro-esophageal reflux disease without esophagitis; K44.9 Diaphragmatic hernia without obstruction or gangrene; R13.10 Dysphagia, unspecified; K52.831 Collagenous colitis ==

== ENCOUNTER → 2023-03-20 | Outpatient (CLI) | payer OTHER, MEDICAID ==
[2023-03-20 10:39] LABS: HEMATOCRIT 34.6 % (42.0-52.0); HEMOGLOBIN 11.2 g/dl (13.5-17.5); MEAN CORPUSCULAR HEMOGLOBIN 28.9 pg (27.0-33.0); MEAN CORPUSCULAR HGB CONC 32.4 g/dl (32.0-36.5); MEAN CORPUSCULAR VOLUME 89.4 fl (80.0-96.0); PLATELET COUNT, AUTOMATED 294 10^3/uL (150-450); RED BLOOD COUNT 3.87 10^6/uL (4.30-6.10); WHITE BLOOD COUNT 7.9 10^3/uL (4.0-10.0)
[2023-03-20 10:46] LABS: ERYTHROCYTE SEDIMENTATION RATE 23 mm/hr (0-20)
[2023-03-20 11:09] LABS: C REACTIVE PROTEIN QUANTITATIV < 0.40 MG/DL (<1.0)
[2023-03-20 11:10] LABS: ALBUMIN 3.7 G/DL (3.2-5.2); ALKALINE PHOSPHATASE 63 U/L (46-116); ALT/SGPT 39 U/L (7.0-40); AST/SGOT 20 U/L (<34); BILIRUBIN,TOTAL 0.5 MG/DL (0.3-1.2); BLOOD UREA NITROGEN 20 MG/DL (9-23); CALCIUM LEVEL 9.5 MG/DL (8.3-10.6); CARBON DIOXIDE LEVEL 31 MMOL/L (20-31); CHLORIDE LEVEL 102 MMOL/L (98-107); CREATININE FOR GFR 0.81 MG/DL (0.70-1.30); GLOMERULAR FILTRATION RATE > 60.0 (>49); GLUCOSE, FASTING 269 MG/DL (74-106); MAGNESIUM LEVEL 1.6 MG/DL (1.8-2.4); POTASSIUM SERUM 5.2 MMOL/L (3.5-5.1); SODIUM LEVEL 140 MMOL/L (136-145); TOTAL PROTEIN 6.6 G/DL (5.7-8.2)
== END ==
LOC: M PLALAB 08:34
PROVIDERS: ATTEND Internal Medicine Gastroenterology
DX: R79.0 Abnormal level of blood mineral (principal)

== ENCOUNTER → 2023-04-30 | Outpatient (CLI) | payer OTHER, MEDICAID ==
[2023-04-30 10:19] LABS: HEMATOCRIT 35.6 % (42.0-52.0); HEMOGLOBIN 11.5 g/dl (13.5-17.5); MEAN CORPUSCULAR HEMOGLOBIN 29.5 pg (27.0-33.0); MEAN CORPUSCULAR HGB CONC 32.3 g/dl (32.0-36.5); MEAN CORPUSCULAR VOLUME 91.3 fl (80.0-96.0); PLATELET COUNT, AUTOMATED 358 10^3/uL (150-450); WHITE BLOOD COUNT 5.8 10^3/uL (4.0-10.0)
[2023-04-30 10:44] LABS: HEMOGLOBIN A1c 9.8 % (4.0-6.0)
[2023-04-30 10:48] LABS: ALBUMIN 3.5 G/DL (3.2-5.2); ALKALINE PHOSPHATASE 76 U/L (46-116); ALT/SGPT 37 U/L (7.0-40); AST/SGOT 23 U/L (<34); BILIRUBIN,TOTAL 0.5 MG/DL (0.3-1.2); BLOOD UREA NITROGEN 18 MG/DL (9-23); CALCIUM LEVEL 9.4 MG/DL (8.3-10.6); CARBON DIOXIDE LEVEL 32 MMOL/L (20-31); CHLORIDE LEVEL 103 MMOL/L (98-107); CHOLESTEROL LEVEL 123 MG/DL (<200); CHOLESTEROL RISK RATIO 3.13 (<5); CREATININE FOR GFR 0.77 MG/DL (0.70-1.30); GLOMERULAR FILTRATION RATE > 60.0 (>49); GLUCOSE, FASTING 181 MG/DL (74-106); HDL CHOLESTEROL 39.2 MG/DL (>40); IRON (FE) 47 UG/DL (65-175); MAGNESIUM LEVEL 1.4 MG/DL (1.8-2.4); NON-HDL-C 83.8 MG/DL; SODIUM LEVEL 140 MMOL/L (136-145); TOTAL PROTEIN 6.7 G/DL (5.7-8.2); TRIGLYCERIDES LEVEL 104 MG/DL (<150)
== END ==
LOC: M PLALAB 08:16
PROVIDERS: ATTEND Internal Medicine Hematology
DX: E11.9 Type 2 diabetes mellitus without complications (principal)

== ENCOUNTER 2023-05-03 00:18 | Observation (INO) | payer OTHER, MEDICAID ==
[~2023-05-03] VITALS: Ht 177.8 cm; Wt 78.6 kg
[~2023-05-03 00:18] MED LIST changes: -DUPI300P; +DUPI300P SC
[2023-05-03] MEDS ORDERED: NS 1,000 ML IV ONE (00:55)
[2023-05-03 01:36] LABS: LIPASE 29 U/L (12-53)
[2023-05-03 01:42] LABS: BASO # 0.1 10^3/uL (0.0-0.2); BASO % 0.5 % (0.0-1.0); EOS # 0.2 10^3/uL (0.0-0.5); EOS % 1.3 % (0.0-3.0); LYMPH % 7.5 % (24.0-44.0); MEAN CORPUSCULAR HEMOGLOBIN 29.4 pg (27.0-33.0); MEAN CORPUSCULAR HGB CONC 32.4 g/dl (32.0-36.5); MEAN CORPUSCULAR VOLUME 90.7 fl (80.0-96.0); MONO % 7.5 % (2.0-8.0); NEUTROPHILS # 10.6 10^3/uL (1.5-8.5); NEUTROPHILS % 82.9 % (36.0-66.0); PLATELET COUNT, AUTOMATED 363 10^3/uL (150-450); RED BLOOD COUNT 4.08 10^6/uL (4.30-6.10); WHITE BLOOD COUNT 12.8 10^3/uL (4.0-10.0)
[2023-05-03 01:48] LABS: ALBUMIN 3.9 G/DL (3.2-5.2); ALKALINE PHOSPHATASE 78 U/L (46-116); ALT/SGPT 40 U/L (7.0-40); AST/SGOT 34 U/L (<34); BILIRUBIN,DIRECT 0.2 MG/DL (<0.4); BILIRUBIN,TOTAL 0.8 MG/DL (0.3-1.2); BLOOD UREA NITROGEN 23 MG/DL (9-23); CALCIUM LEVEL 9.1 MG/DL (8.3-10.6); CARBON DIOXIDE LEVEL 26 MMOL/L (20-31); CHLORIDE LEVEL 103 MMOL/L (98-107); GLOMERULAR FILTRATION RATE > 60.0 (>49); GLUCOSE, FASTING 176 MG/DL (74-106); POTASSIUM SERUM 4.3 MMOL/L (3.5-5.1); SODIUM LEVEL 138 MMOL/L (136-145); TOTAL PROTEIN 7.1 G/DL (5.7-8.2)
[2023-05-03] MEDS ORDERED: ISOVUE-370 76% 100ML VIAL As Ordered ONE (05:40)
[2023-05-03] MEDS ORDERED: metroNIDAZOLE 500 MG in IV 1 EA IV ONE (06:55)
[2023-05-03] MEDS ORDERED: CIPROFLOXACIN 400 MG in IV 1 EA IV ONE (08:00)
[2023-05-03] MEDS ORDERED: MED REC IN PROGRESS XX SCH (08:30)
[2023-05-03] MEDS: PANTOPRAZOLE 40MG TAB (PROTONIX) PO SCH ×2 (09:00→21:36)
[2023-05-03] MEDS ORDERED: ENOXAPARIN 40MG/0.4ML SYRINGE (J1650 PER 10MG) SC SCH (09:00)
[2023-05-03] MEDS ORDERED: DEXTROSE 50% 50ML SYRINGE IV PRN (09:35)
[2023-05-03] MEDS ORDERED: GLUCAGON INJ 1MG VIAL SC PRN (09:35)
[2023-05-03] MEDS ORDERED: GLUCOSE 4GM CHEW TABLET PO PRN (09:35)
[2023-05-03] MEDS ORDERED: MELA10TA14 PO (10:15)
[2023-05-03] MEDS ORDERED: VITMTA PO (10:15)
[2023-05-03] MEDS ORDERED: FERR325T81 PO (10:15)
[2023-05-03] MEDS ORDERED: MECL-136 PO (10:15)
[2023-05-03] MEDS ORDERED: METF-838 PO (10:15)
[2023-05-03] MEDS ORDERED: SEMA0.257 SC (10:15)
[2023-05-03] MEDS ORDERED: ONDA4TAB6 PO (10:15)
[2023-05-03] MEDS ORDERED: GABA800T4 PO (10:15)
[2023-05-03] MEDS ORDERED: FURO20TA2 PO (10:15)
[2023-05-03] MEDS ORDERED: HOME MED LIST COMPLETE! XX SCH (10:25)
[2023-05-03 10:28] LABS: C REACTIVE PROTEIN QUANTITATIV 2.6 MG/DL (<1.0)
[2023-05-03 10:36] LABS: PROCALCITONIN 1.75 ng/ml
[2023-05-03] MEDS: INSULIN LISPRO (NovoLOG) PER UNIT SC SCH ×3 (12:00→21:00)
[2023-05-03 12:50] VITALS: BP 118/70
[2023-05-03 12:51] VITALS: BP 116/70
[2023-05-03 12:52] VITALS: BP 115/69
[2023-05-03 12:53] VITALS: BP 115/69
[2023-05-03 12:59] VITALS: TEMP 97.9; O2SAT 97
[2023-05-03] MEDS: APIXABAN 5 MG TAB (ELIQUIS) PO SCH ×2 (13:01→21:36)
[2023-05-03] MEDS: TAMSULOSIN 0.4 MG CAP PO SCH (13:01)
[2023-05-03] MEDS: ROSUVASTATIN 10 MG TAB (CRESTOR) PO SCH (13:01)
[2023-05-03] MEDS: GABAPENTIN 400MG CAP PO SCH ×2 (15:08→21:36)
[2023-05-03] MEDS: LR 1,000 ML IV SCH (15:08)
[2023-05-03] MEDS: metroNIDAZOLE 500 MG in IV 1 EA IV SCH (17:04)
[2023-05-03 20:43] VITALS: BP 116/63; TEMP 99.1; O2SAT 98
[2023-05-03] MEDS: zolPIDEM TARTRATE 5 MG TAB PO SCH (21:35)
[2023-05-03] MEDS: FAMOTIDINE 20 MG TAB PO SCH (21:36)
[2023-05-03] MEDS: DOXEPIN 25 MG CAP PO SCH (21:36)
[2023-05-03] MEDS: BISOPROLOL FUM 2.5 MG PER 1/2TAB PO SCH (21:37)
[2023-05-03] MEDS: SIMETHICONE 80MG CHEW TAB PO PRN (21:38)
[2023-05-03] MEDS: CIPROFLOXACIN 400 MG in IV 1 EA IV SCH (21:38)
[2023-05-03] MEDS: AZELASTINE 137MCG NASAL SPY 30 ML (ASTELIN) SCH (21:38)
[2023-05-04] MEDS: metroNIDAZOLE 500 MG in IV 1 EA IV SCH ×2 (00:02→10:21)
[2023-05-04] MEDS: LR 1,000 ML IV SCH ×2 (02:32→10:20)
[2023-05-04 05:40] VITALS: BP 128/82; TEMP 97.3; O2SAT 96
[2023-05-04 06:24] LABS: BLOOD UREA NITROGEN 14 MG/DL (9-23); CALCIUM LEVEL 8.3 MG/DL (8.3-10.6); CARBON DIOXIDE LEVEL 26 MMOL/L (20-31); CHLORIDE LEVEL 105 MMOL/L (98-107); CREATININE FOR GFR 0.71 MG/DL (0.70-1.30); GLOMERULAR FILTRATION RATE > 60.0 (>49); GLUCOSE, FASTING 149 MG/DL (74-106); MAGNESIUM LEVEL 1.4 MG/DL (1.8-2.4); PHOSPHORUS LEVEL 3.6 MG/DL (2.4-5.1); POTASSIUM SERUM 3.8 MMOL/L (3.5-5.1); SODIUM LEVEL 137 MMOL/L (136-145)
[2023-05-04 06:28] LABS: BASO % 0.7 % (0.0-1.0); EOS # 0.3 10^3/uL (0.0-0.5); EOS % 5.3 % (0.0-3.0); HEMATOCRIT 30.3 % (42.0-52.0); LYMPH % 18.1 % (24.0-44.0); MEAN CORPUSCULAR HEMOGLOBIN 29.6 pg (27.0-33.0); MEAN CORPUSCULAR HGB CONC 32.7 g/dl (32.0-36.5); MEAN CORPUSCULAR VOLUME 90.4 fl (80.0-96.0); MONO # 0.8 10^3/uL (0.0-0.8); MONO % 13.6 % (2.0-8.0); NEUTROPHILS # 3.4 10^3/uL (1.5-8.5); NEUTROPHILS % 62.1 % (36.0-66.0); PLATELET COUNT, AUTOMATED 244 10^3/uL (150-450); RED BLOOD COUNT 3.35 10^6/uL (4.30-6.10); WHITE BLOOD COUNT 5.5 10^3/uL (4.0-10.0)
[2023-05-04 06:29] LABS: HEMOGLOBIN 9.9 g/dl (13.5-17.5)
[2023-05-04] MEDS: MORPHINE 2 MG/ML 1ML VIAL IV PRN (08:58)
[2023-05-04] MEDS: ONDANSETRON 4MG 2ML VIAL IV PRN ×2 (08:58→17:59)
[2023-05-04] MEDS: INSULIN LISPRO (NovoLOG) PER UNIT SC SCH ×4 (08:59→20:46)
[2023-05-04] MEDS ORDERED: LEFLUNOMIDE PO SCH (09:00)
[2023-05-04] MEDS: AZELASTINE 137MCG NASAL SPY 30 ML (ASTELIN) SCH ×2 (09:00→20:46)
[2023-05-04] MEDS: SIMETHICONE 80MG CHEW TAB PO PRN ×2 (09:00→20:46)
[2023-05-04] MEDS: MAG SULF 1GM/100ML (MAG RUN) 1 GM in IV 1 EA IV SCH ×2 (09:00→10:20)
[2023-05-04] MEDS: CIPROFLOXACIN 400 MG in IV 1 EA IV SCH (09:00)
[2023-05-04] MEDS: TAMSULOSIN 0.4 MG CAP PO SCH (09:01)
[2023-05-04] MEDS: GABAPENTIN 400MG CAP PO SCH ×3 (09:01→20:45)
[2023-05-04] MEDS: FERROUS SULFATE 325MG TAB PO SCH (09:01)
[2023-05-04] MEDS: APIXABAN 5 MG TAB (ELIQUIS) PO SCH ×2 (09:01→20:45)
[2023-05-04] MEDS: PANTOPRAZOLE 40MG TAB (PROTONIX) PO SCH ×2 (09:01→20:45)
[2023-05-04] MEDS: ROSUVASTATIN 10 MG TAB (CRESTOR) PO SCH (09:01)
[2023-05-04 14:00] VITALS: BP 141/76; TEMP 97.5; O2SAT 96
[2023-05-04] MEDS: metroNIDAZOLE (FLAGYL) 500MG TABLET PO SCH ×2 (18:00→20:45)
[2023-05-04] MEDS: MORPHINE 4 MG/ML 1ML VIAL IV PRN (18:00)
[2023-05-04] MEDS: CIPROFLOXACIN 500MG TABLET PO SCH (18:01)
[2023-05-04 20:28] VITALS: BP 139/88; TEMP 98.9; O2SAT 98
[2023-05-04] MEDS: zolPIDEM TARTRATE 5 MG TAB PO SCH (20:44)
[2023-05-04 20:45] VITALS: BP 139/88
[2023-05-04] MEDS: BISOPROLOL FUM 2.5 MG PER 1/2TAB PO SCH (20:45)
[2023-05-04] MEDS: FAMOTIDINE 20 MG TAB PO SCH (20:45)
[2023-05-04] MEDS: DOXEPIN 25 MG CAP PO SCH (20:45)
[2023-05-05] MEDS: MORPHINE 2 MG/ML 1ML VIAL IV PRN (04:32)
[2023-05-05] MEDS: SIMETHICONE 80MG CHEW TAB PO PRN (04:32)
[2023-05-05 05:07] VITALS: BP 141/87; TEMP 97; O2SAT 97
[2023-05-05 05:08] VITALS: TEMP 98.2
[2023-05-05] MEDS: CIPROFLOXACIN 500MG TABLET PO SCH (05:09)
[2023-05-05 06:01] LABS: BASO % 0.8 % (0.0-1.0); EOS # 0.3 10^3/uL (0.0-0.5); EOS % 6.4 % (0.0-3.0); HEMATOCRIT 31.9 % (42.0-52.0); HEMOGLOBIN 10.2 g/dl (13.5-17.5); LYMPH # 1.1 10^3/uL (1.5-5.0); MEAN CORPUSCULAR HEMOGLOBIN 29.1 pg (27.0-33.0); MEAN CORPUSCULAR VOLUME 90.9 fl (80.0-96.0); MONO # 0.7 10^3/uL (0.0-0.8); MONO % 13.8 % (2.0-8.0); NEUTROPHILS # 3.1 10^3/uL (1.5-8.5); NEUTROPHILS % 58.6 % (36.0-66.0); PLATELET COUNT, AUTOMATED 264 10^3/uL (150-450); RED BLOOD COUNT 3.51 10^6/uL (4.30-6.10); WHITE BLOOD COUNT 5.3 10^3/uL (4.0-10.0)
[2023-05-05 06:24] LABS: BLOOD UREA NITROGEN 6 MG/DL (9-23); CALCIUM LEVEL 8.6 MG/DL (8.3-10.6); CARBON DIOXIDE LEVEL 28 MMOL/L (20-31); CHLORIDE LEVEL 106 MMOL/L (98-107); GLOMERULAR FILTRATION RATE > 60.0 (>49); GLUCOSE, FASTING 190 MG/DL (74-106); MAGNESIUM LEVEL 1.4 MG/DL (1.8-2.4); PHOSPHORUS LEVEL 3.9 MG/DL (2.4-5.1); POTASSIUM SERUM 4.2 MMOL/L (3.5-5.1); SODIUM LEVEL 138 MMOL/L (136-145)
[2023-05-05] MEDS ORDERED: MAGNESIUM OXIDE 400MG TAB (MAG-OX) PO ONE (07:15)
[2023-05-05] MEDS: TAMSULOSIN 0.4 MG CAP PO SCH (08:13)
[2023-05-05] MEDS: GABAPENTIN 400MG CAP PO SCH (08:13)
[2023-05-05] MEDS: ROSUVASTATIN 10 MG TAB (CRESTOR) PO SCH (08:13)
[2023-05-05] MEDS: AZELASTINE 137MCG NASAL SPY 30 ML (ASTELIN) SCH (08:13)
[2023-05-05] MEDS: metroNIDAZOLE (FLAGYL) 500MG TABLET PO SCH (08:13)
[2023-05-05] MEDS: INSULIN LISPRO (NovoLOG) PER UNIT SC SCH ×2 (08:13→12:00)
[2023-05-05] MEDS: FERROUS SULFATE 325MG TAB PO SCH (08:13)
[2023-05-05] MEDS: APIXABAN 5 MG TAB (ELIQUIS) PO SCH (08:13)
[2023-05-05] MEDS: PANTOPRAZOLE 40MG TAB (PROTONIX) PO SCH (08:13)
[2023-05-05 10:00] VITALS: BP 142/87; TEMP 97.7; O2SAT 96
[2023-05-05] MEDS: MORPHINE 4 MG/ML 1ML VIAL IV PRN (11:13)
[2023-05-05] MEDS ORDERED: CIPR-249 PO (11:31)
[2023-05-05] MEDS ORDERED: METR-265 PO (11:31)
[2023-05-05] MEDS ORDERED: MAGN200T10 PO (11:43)
== END 2023-05-05 16:01 | disposition home or self-care (01) ==
LOC: M ED 00:18 → EDBD 00:18 → M ED INP 00:19 → M MSPAV 12:55
PROVIDERS: ADMIT Internal Medicine; ATTEND Internal Medicine
DX: K52.831 Collagenous colitis (principal); E83.42 Hypomagnesemia; D72.829 Elevated white blood cell count, unspecified; I10 Essential (primary) hypertension; E11.9 Type 2 diabetes mellitus without complications; K21.9 Gastro-esophageal reflux disease without esophagitis; Z86.718 Personal history of other venous thrombosis and embolism; Z86.711 Personal history of pulmonary embolism; Z88.0 Allergy status to penicillin; Z88.1 Allergy status to other antibiotic agents; Z88.2 Allergy status to sulfonamides; Z88.5 Allergy status to narcotic agent; Z88.8 Allergy status to other drugs, medicaments and biological substances; Z79.899 Other long term (current) drug therapy; Z79.01 Long term (current) use of anticoagulants; Z79.2 Long term (current) use of antibiotics; Z79.84 Long term (current) use of oral hypoglycemic drugs
CPT/HCPCS: 36415; 74177; 80048; 80076; 83605; 83690; 83735; 84100; 84145; 85025; 86140; 87040; 87486; 87507; 87581; 87633; 87798; 96365; 96366; 96367; 96368; 96375; 96376; 99285; G0378; J0744; J1815; J1836; J2405; J3475; Q9967

== ENCOUNTER → 2023-05-09 | Outpatient (CLI) | payer OTHER, MEDICAID ==
[~2023-05-09] MED LIST changes: +FERR325T81 PO; +MAGN200T10 PO; +MELA10TA14 PO; +METF-838 PO; +METR-265 PO; +SEMA0.257 SC; +VITMTA PO
[2023-05-09 18:24] LABS: HEMATOCRIT 35.6 % (42.0-52.0); HEMOGLOBIN 11.6 g/dl (13.5-17.5); MEAN CORPUSCULAR HEMOGLOBIN 29.1 pg (27.0-33.0); MEAN CORPUSCULAR HGB CONC 32.6 g/dl (32.0-36.5); MEAN CORPUSCULAR VOLUME 89.4 fl (80.0-96.0); PLATELET COUNT, AUTOMATED 379 10^3/uL (150-450); RED BLOOD COUNT 3.98 10^6/uL (4.30-6.10); WHITE BLOOD COUNT 6.9 10^3/uL (4.0-10.0)
[2023-05-09 18:36] LABS: IRON (FE) 43 UG/DL (65-175)
[2023-05-09 18:38] LABS: ALBUMIN 3.7 G/DL (3.2-5.2); ALKALINE PHOSPHATASE 50 U/L (46-116); ALT/SGPT 25 U/L (7.0-40); AST/SGOT 22 U/L (<34); BILIRUBIN,TOTAL 0.3 MG/DL (0.3-1.2); BLOOD UREA NITROGEN 13 MG/DL (9-23); CALCIUM LEVEL 8.7 MG/DL (8.3-10.6); CARBON DIOXIDE LEVEL 29 MMOL/L (20-31); CHLORIDE LEVEL 100 MMOL/L (98-107); CHOLESTEROL LEVEL 76 MG/DL (<200); CHOLESTEROL RISK RATIO 1.83 (<5); CREATININE FOR GFR 0.78 MG/DL (0.70-1.30); GLOMERULAR FILTRATION RATE > 60.0 (>49); GLUCOSE, FASTING 141 MG/DL (74-106); HDL CHOLESTEROL 41.5 MG/DL (>40); LDL CHOLESTEROL 23.3 MG/DL (<100); MAGNESIUM LEVEL 1.3 MG/DL (1.8-2.4); NON-HDL-C 34.5 MG/DL; SODIUM LEVEL 137 MMOL/L (136-145); TOTAL PROTEIN 6.5 G/DL (5.7-8.2); TRIGLYCERIDES LEVEL 56 MG/DL (<150)
[2023-05-09 18:51] LABS: HEMOGLOBIN A1c 9.3 % (4.0-6.0)
== END ==
LOC: M PLALAB 15:41
PROVIDERS: ATTEND Internal Medicine Hematology
DX: D50.9 Iron deficiency anemia, unspecified (principal); E11.9 Type 2 diabetes mellitus without complications; E78.2 Mixed hyperlipidemia

== ENCOUNTER → 2023-05-14 | Outpatient (CLI) | payer OTHER, MEDICAID ==
[2023-05-14 14:34] LABS: HEMATOCRIT 37.7 % (42.0-52.0); HEMOGLOBIN 12.3 g/dl (13.5-17.5); MEAN CORPUSCULAR HEMOGLOBIN 29.6 pg (27.0-33.0); MEAN CORPUSCULAR HGB CONC 32.6 g/dl (32.0-36.5); MEAN CORPUSCULAR VOLUME 90.6 fl (80.0-96.0); PLATELET COUNT, AUTOMATED 407 10^3/uL (150-450); RED BLOOD COUNT 4.16 10^6/uL (4.30-6.10); WHITE BLOOD COUNT 5.7 10^3/uL (4.0-10.0)
[2023-05-14 14:51] LABS: C REACTIVE PROTEIN QUANTITATIV < 0.40 MG/DL (<1.0)
[2023-05-14 14:53] LABS: ERYTHROCYTE SEDIMENTATION RATE 49 mm/hr (0-20); IRON (FE) 86 UG/DL (65-175); PERCENT SATURATION 31.3 % (19.7-50.0); TOTAL IRON BINDING CAPACITY 275 UG/DL (250-425)
[2023-05-14 14:54] LABS: ALBUMIN 3.7 G/DL (3.2-5.2); ALKALINE PHOSPHATASE 60 U/L (46-116); ALT/SGPT 32 U/L (7.0-40); AST/SGOT 31 U/L (<34); BILIRUBIN,TOTAL 0.4 MG/DL (0.3-1.2); BLOOD UREA NITROGEN 18 MG/DL (9-23); CALCIUM LEVEL 9.3 MG/DL (8.3-10.6); CARBON DIOXIDE LEVEL 31 MMOL/L (20-31); CHLORIDE LEVEL 100 MMOL/L (98-107); CREATININE FOR GFR 0.71 MG/DL (0.70-1.30); GLOMERULAR FILTRATION RATE > 60.0 (>49); GLUCOSE, FASTING 211 MG/DL (74-106); MAGNESIUM LEVEL 1.5 MG/DL (1.8-2.4); POTASSIUM SERUM 5.2 MMOL/L (3.5-5.1); SODIUM LEVEL 135 MMOL/L (136-145); TOTAL PROTEIN 6.8 G/DL (5.7-8.2)
== END ==
LOC: M PLALAB 09:26
PROVIDERS: ATTEND Internal Medicine Gastroenterology
DX: R19.7 Diarrhea, unspecified (principal); D50.9 Iron deficiency anemia, unspecified

== ENCOUNTER 2023-05-27 15:55 | Emergency (ER) | payer OTHER, MEDICAID ==
[~2023-05-27] VITALS: Ht 175.3 cm; Wt 79.0 kg
[2023-05-27 18:26] LABS: BASO # 0.1 10^3/uL (0.0-0.2); BASO % 0.5 % (0.0-1.0); EOS # 0.1 10^3/uL (0.0-0.5); EOS % 1.4 % (0.0-3.0); HEMATOCRIT 37.5 % (42.0-52.0); HEMOGLOBIN 12.3 g/dl (13.5-17.5); LYMPH # 1.4 10^3/uL (1.5-5.0); MEAN CORPUSCULAR HEMOGLOBIN 29.1 pg (27.0-33.0); MEAN CORPUSCULAR HGB CONC 32.8 g/dl (32.0-36.5); MEAN CORPUSCULAR VOLUME 88.9 fl (80.0-96.0); MONO # 0.6 10^3/uL (0.0-0.8); MONO % 6.3 % (2.0-8.0); NEUTROPHILS # 7.2 10^3/uL (1.5-8.5); NEUTROPHILS % 76.4 % (36.0-66.0); PLATELET COUNT, AUTOMATED 375 10^3/uL (150-450); RED BLOOD COUNT 4.22 10^6/uL (4.30-6.10); WHITE BLOOD COUNT 9.4 10^3/uL (4.0-10.0)
[2023-05-27 18:39] LABS: LIPASE 27 U/L (12-53)
[2023-05-27 18:42] LABS: ALBUMIN 3.9 G/DL (3.2-5.2); ALKALINE PHOSPHATASE 54 U/L (46-116); ALT/SGPT 55 U/L (7.0-40); AST/SGOT 33 U/L (<34); BILIRUBIN,DIRECT 0.2 MG/DL (<0.4); BILIRUBIN,TOTAL 0.4 MG/DL (0.3-1.2); BLOOD UREA NITROGEN 24 MG/DL (9-23); CALCIUM LEVEL 9.3 MG/DL (8.3-10.6); CARBON DIOXIDE LEVEL 29 MMOL/L (20-31); CHLORIDE LEVEL 101 MMOL/L (98-107); CREATININE FOR GFR 0.69 MG/DL (0.70-1.30); GLOMERULAR FILTRATION RATE > 60.0 (>49); GLUCOSE, FASTING 243 MG/DL (74-106); POTASSIUM SERUM 4.1 MMOL/L (3.5-5.1); SODIUM LEVEL 136 MMOL/L (136-145)
[2023-05-27] MEDS ORDERED: ACETAMINOPHEN *IV* 1,000 MG in IV 1 EA IV ONE (21:50)
[2023-05-27] MEDS ORDERED: ISOVUE-370 76% 100ML VIAL As Ordered ONE (21:50)
[2023-05-27 22:07] LABS: MAGNESIUM LEVEL 1.5 MG/DL (1.8-2.4)
[2023-05-27] MEDS ORDERED: MAG SULF 1GM/100ML (MAG RUN) 1 GM in IV 1 EA IV ONE (23:25)
[2023-05-28 00:07] VITALS: BP 166/96; TEMP 97.8; O2SAT 97
== END 2023-05-28 01:25 | disposition home or self-care (01) ==
LOC: M ED 15:55
DX: E83.42 Hypomagnesemia (principal); R19.7 Diarrhea, unspecified; E11.9 Type 2 diabetes mellitus without complications; I10 Essential (primary) hypertension; E78.5 Hyperlipidemia, unspecified; J45.909 Unspecified asthma, uncomplicated; K58.9 Irritable bowel syndrome, unspecified; K22.70 Barrett's esophagus without dysplasia; Z86.711 Personal history of pulmonary embolism; Z86.718 Personal history of other venous thrombosis and embolism; Z87.19 Personal history of other diseases of the digestive system; Z79.01 Long term (current) use of anticoagulants; Z79.4 Long term (current) use of insulin; Z79.899 Other long term (current) drug therapy; Z88.1 Allergy status to other antibiotic agents; Z88.0 Allergy status to penicillin; Z88.2 Allergy status to sulfonamides; Z88.5 Allergy status to narcotic agent; Z88.8 Allergy status to other drugs, medicaments and biological substances
CPT/HCPCS: 74177; 80048; 80076; 81001; 83605; 83690; 83735; 85025; 96365; 96366; 96368; 99284; J0131; J3475; Q9967

== ENCOUNTER 2023-06-03 11:57 | Outpatient (CLI) | payer OTHER, MEDICAID ==
[~2023-06-03] VITALS: Ht 175.3 cm; Wt 82.0 kg
[~2023-06-03 11:57] MED LIST changes: +ALBUTEROL SULFATE 2.5MG/0.5ML INH NEB SOLN INH PRN; +EPINEPHrine INJ 1 MG/ML 1ML AMP IM PRN; +diphenhydrAMINE 50MG/ML VIAL IV PRN; +methylPREDNISolone 125MG 2ML VIAL IV PRN
[2023-06-03] MEDS ORDERED: IRON SUCROSE 200 MG in NS 100 ML OVER 1 HR IV ONE (13:30)
[2023-06-03] MEDS ORDERED: NS 1,000 ML IV SCH (13:30)
[2023-06-03 13:38] VITALS: BP 164/82; O2SAT 100
[2023-06-03 15:10] VITALS: BP 146/74; O2SAT 99
== END 2023-06-03 15:10 | disposition home or self-care (01) ==
LOC: M INFU 11:57
PROVIDERS: ATTEND Internal Medicine Hematology
DX: D50.9 Iron deficiency anemia, unspecified (principal); Z88.0 Allergy status to penicillin; Z88.2 Allergy status to sulfonamides; Z88.1 Allergy status to other antibiotic agents; Z88.5 Allergy status to narcotic agent; Z88.8 Allergy status to other drugs, medicaments and biological substances
CPT/HCPCS: 96365; J1756

== ENCOUNTER → 2023-06-05 | Outpatient (CLI) | payer OTHER, MEDICAID ==
[~2023-06-05] MED LIST changes: -ALBUTEROL SULFATE 2.5MG/0.5ML INH NEB SOLN INH PRN; -EPINEPHrine INJ 1 MG/ML 1ML AMP IM PRN; -diphenhydrAMINE 50MG/ML VIAL IV PRN; -methylPREDNISolone 125MG 2ML VIAL IV PRN
[2023-06-05 11:43] LABS: BASO # 0.1 10^3/uL (0.0-0.2); BASO % 1.3 % (0.0-1.0); EOS # 0.3 10^3/uL (0.0-0.5); EOS % 5.1 % (0.0-3.0); HEMATOCRIT 35.4 % (42.0-52.0); LYMPH # 1.3 10^3/uL (1.5-5.0); LYMPH % 22.1 % (24.0-44.0); MEAN CORPUSCULAR HEMOGLOBIN 28.6 pg (27.0-33.0); MEAN CORPUSCULAR HGB CONC 31.1 g/dl (32.0-36.5); MEAN CORPUSCULAR VOLUME 92.2 fl (80.0-96.0); MONO # 0.6 10^3/uL (0.0-0.8); MONO % 9.4 % (2.0-8.0); NEUTROPHILS # 3.7 10^3/uL (1.5-8.5); NEUTROPHILS % 61.6 % (36.0-66.0); PLATELET COUNT, AUTOMATED 285 10^3/uL (150-450); RED BLOOD COUNT 3.84 10^6/uL (4.30-6.10); WHITE BLOOD COUNT 6.1 10^3/uL (4.0-10.0)
[2023-06-05 12:04] LABS: BLOOD UREA NITROGEN 19 MG/DL (9-23); CALCIUM LEVEL 9.5 MG/DL (8.3-10.6); CARBON DIOXIDE LEVEL 34 MMOL/L (20-31); CHLORIDE LEVEL 103 MMOL/L (98-107); CREATININE FOR GFR 0.64 MG/DL (0.70-1.30); GLOMERULAR FILTRATION RATE > 60.0 (>49); GLUCOSE, FASTING 275 MG/DL (74-106); MAGNESIUM LEVEL 1.4 MG/DL (1.8-2.4); POTASSIUM SERUM 5.4 MMOL/L (3.5-5.1); SODIUM LEVEL 141 MMOL/L (136-145)
== END ==
LOC: M PLALAB 08:44
PROVIDERS: ATTEND Internal Medicine Hematology
DX: E83.42 Hypomagnesemia (principal)

== ENCOUNTER 2023-06-10 13:00 | Outpatient (CLI) | payer OTHER, MEDICAID ==
[~2023-06-10 13:00] MED LIST changes: +ALBUTEROL SULFATE 2.5MG/0.5ML INH NEB SOLN INH PRN; +EPINEPHrine INJ 1 MG/ML 1ML AMP IM PRN; +IRON SUCROSE 200 MG in NS 100 ML OVER 1 HR IV ONE; +NS 1,000 ML IV SCH; +diphenhydrAMINE 50MG/ML VIAL IV PRN; +methylPREDNISolone 125MG 2ML VIAL IV PRN
[2023-06-10 13:01] VITALS: BP 137/72; O2SAT 100
[2023-06-10 14:20] VITALS: BP 141/66; O2SAT 98
== END 2023-06-10 14:21 | disposition home or self-care (01) ==
LOC: M INFU 13:00
PROVIDERS: ATTEND Internal Medicine Hematology
DX: D50.9 Iron deficiency anemia, unspecified (principal); Z88.0 Allergy status to penicillin; Z88.2 Allergy status to sulfonamides; Z88.1 Allergy status to other antibiotic agents; Z88.5 Allergy status to narcotic agent; Z88.8 Allergy status to other drugs, medicaments and biological substances

== ENCOUNTER → 2023-06-12 | Outpatient (CLI) | payer OTHER, MEDICAID ==
[~2023-06-12] MED LIST changes: -ALBUTEROL SULFATE 2.5MG/0.5ML INH NEB SOLN INH PRN; -EPINEPHrine INJ 1 MG/ML 1ML AMP IM PRN; -IRON SUCROSE 200 MG in NS 100 ML OVER 1 HR IV ONE; -NS 1,000 ML IV SCH; -diphenhydrAMINE 50MG/ML VIAL IV PRN; -methylPREDNISolone 125MG 2ML VIAL IV PRN
== END ==
LOC: M RAD 07:23
PROVIDERS: ATTEND Internal Medicine Hematology
DX: N50.819 Testicular pain, unspecified (principal)

== ENCOUNTER → 2023-07-24 | Outpatient (CLI) | payer OTHER, MEDICAID ==
[~2023-07-24] MED LIST changes: -LEFL1TAB4 PO; +LEFL20TA15 PO
[2023-07-24 15:06] LABS: BASO # 0.1 10^3/uL (0.0-0.2); BASO % 0.9 % (0.0-1.0); EOS # 0.3 10^3/uL (0.0-0.5); EOS % 3.4 % (0.0-3.0); HEMOGLOBIN 11.9 g/dl (13.5-17.5); LYMPH # 1.4 10^3/uL (1.5-5.0); LYMPH % 14.3 % (24.0-44.0); MEAN CORPUSCULAR HEMOGLOBIN 29.4 pg (27.0-33.0); MEAN CORPUSCULAR HGB CONC 33.1 g/dl (32.0-36.5); MEAN CORPUSCULAR VOLUME 88.9 fl (80.0-96.0); MONO # 0.6 10^3/uL (0.0-0.8); MONO % 6.4 % (2.0-8.0); NEUTROPHILS # 7.1 10^3/uL (1.5-8.5); NEUTROPHILS % 73.9 % (36.0-66.0); PLATELET COUNT, AUTOMATED 338 10^3/uL (150-450); RED BLOOD COUNT 4.05 10^6/uL (4.30-6.10); WHITE BLOOD COUNT 9.6 10^3/uL (4.0-10.0)
[2023-07-24 15:27] LABS: ALBUMIN 3.6 G/DL (3.2-5.2); ALKALINE PHOSPHATASE 101 U/L (46-116); ALT/SGPT 52 U/L (7.0-40); AST/SGOT 29 U/L (<34); BILIRUBIN,TOTAL 0.3 MG/DL (0.3-1.2); BLOOD UREA NITROGEN 27 MG/DL (9-23); CALCIUM LEVEL 9.7 MG/DL (8.3-10.6); CARBON DIOXIDE LEVEL 34 MMOL/L (20-31); CHLORIDE LEVEL 101 MMOL/L (98-107); CREATININE FOR GFR 0.75 MG/DL (0.70-1.30); GLOMERULAR FILTRATION RATE > 60.0 (>49); GLUCOSE, FASTING 243 MG/DL (74-106); IRON (FE) 88 UG/DL (65-175); POTASSIUM SERUM 5.5 MMOL/L (3.5-5.1); SODIUM LEVEL 137 MMOL/L (136-145); TOTAL PROTEIN 7.1 G/DL (5.7-8.2)
[2023-07-24 15:28] LABS: HEMOGLOBIN A1c 10.8 % (4.0-6.0)
== END ==
LOC: M PLALAB 11:32
PROVIDERS: ATTEND Internal Medicine Hematology
DX: E11.9 Type 2 diabetes mellitus without complications (principal); K52.831 Collagenous colitis

== ENCOUNTER → 2023-07-24 | Outpatient (CLI) | payer OTHER, MEDICAID | LOC: M PLALAB 11:10 | PROVIDERS: ATTEND Internal Medicine Gastroenterology | DX: K52.831 Collagenous colitis (principal) ==

== ENCOUNTER → 2023-08-05 | Outpatient (REF) | payer OTHER, MEDICAID | LOC: M LAB REF 15:19 | PROVIDERS: ATTEND Internal Medicine Gastroenterology | DX: K58.9 Irritable bowel syndrome, unspecified (principal); K22.70 Barrett's esophagus without dysplasia; E83.42 Hypomagnesemia; R19.7 Diarrhea, unspecified ==

== ENCOUNTER → 2023-09-04 | Outpatient (CLI) | payer OTHER, MEDICAID | LOC: M PLAIMG 08:09 | PROVIDERS: ATTEND Student in an Organized Health Care Education/Training Program | DX: M79.671 Pain in right foot (principal) ==

== ENCOUNTER → 2023-09-04 | Outpatient (CLI) | payer OTHER, MEDICAID | LOC: M WHC 08:05 | PROVIDERS: ATTEND Student in an Organized Health Care Education/Training Program | DX: M79.671 Pain in right foot (principal) ==

== ENCOUNTER → 2023-09-26 | Outpatient (CLI) | payer OTHER, MEDICAID ==
[2023-09-26 13:33] LABS: BASO # 0.1 10^3/uL (0.0-0.2); BASO % 0.4 % (0.0-1.0); EOS # 0.1 10^3/uL (0.0-0.5); EOS % 0.7 % (0.0-3.0); HEMATOCRIT 38.6 % (42.0-52.0); HEMOGLOBIN 12.6 g/dl (13.5-17.5); LYMPH # 0.7 10^3/uL (1.5-5.0); LYMPH % 5.8 % (24.0-44.0); MEAN CORPUSCULAR HEMOGLOBIN 29.9 pg (27.0-33.0); MEAN CORPUSCULAR HGB CONC 32.6 g/dl (32.0-36.5); MEAN CORPUSCULAR VOLUME 91.5 fl (80.0-96.0); MONO # 0.3 10^3/uL (0.0-0.8); MONO % 2.9 % (2.0-8.0); NEUTROPHILS % 89.7 % (36.0-66.0); PLATELET COUNT, AUTOMATED 360 10^3/uL (150-450); RED BLOOD COUNT 4.22 10^6/uL (4.30-6.10); WHITE BLOOD COUNT 11.1 10^3/uL (4.0-10.0)
[2023-09-26 14:00] LABS: BLOOD UREA NITROGEN 35 MG/DL (9-23); CALCIUM LEVEL 9.5 MG/DL (8.3-10.6); CARBON DIOXIDE LEVEL 31 MMOL/L (20-31); CHLORIDE LEVEL 97 MMOL/L (98-107); CREATININE FOR GFR 0.94 MG/DL (0.70-1.30); GLOMERULAR FILTRATION RATE > 60.0 (>49); GLUCOSE, FASTING 390 MG/DL (74-106); POTASSIUM SERUM 5.2 MMOL/L (3.5-5.1); SODIUM LEVEL 132 MMOL/L (136-145)
[2023-09-26 14:02] LABS: FREE T4 1.28 NG/DL (0.89-1.76)
== END ==
LOC: M PLALAB 11:26
PROVIDERS: ATTEND Student in an Organized Health Care Education/Training Program
DX: R42 Dizziness and giddiness (principal); E11.42 Type 2 diabetes mellitus with diabetic polyneuropathy

== ENCOUNTER 2023-10-03 16:40 | Emergency (ER) | payer OTHER, MEDICAID ==
[~2023-10-03] VITALS: Ht 175.3 cm; Wt 82.4 kg
[2023-10-03 17:45] LABS: BASO % 0.6 % (0.0-1.0); EOS # 0.1 10^3/uL (0.0-0.5); EOS % 1.2 % (0.0-3.0); HEMATOCRIT 34.5 % (42.0-52.0); HEMOGLOBIN 11.3 g/dl (13.5-17.5); LYMPH # 0.9 10^3/uL (1.5-5.0); LYMPH % 13.8 % (24.0-44.0); MEAN CORPUSCULAR HEMOGLOBIN 29.9 pg (27.0-33.0); MEAN CORPUSCULAR HGB CONC 32.8 g/dl (32.0-36.5); MEAN CORPUSCULAR VOLUME 91.3 fl (80.0-96.0); MONO # 0.6 10^3/uL (0.0-0.8); MONO % 9.8 % (2.0-8.0); NEUTROPHILS # 4.9 10^3/uL (1.5-8.5); NEUTROPHILS % 74.1 % (36.0-66.0); PLATELET COUNT, AUTOMATED 268 10^3/uL (150-450); RED BLOOD COUNT 3.78 10^6/uL (4.30-6.10); WHITE BLOOD COUNT 6.5 10^3/uL (4.0-10.0)
[2023-10-03 18:03] LABS: LIPASE 21 U/L (12-53)
[2023-10-03 18:05] LABS: ALBUMIN 3.5 G/DL (3.2-5.2); ALKALINE PHOSPHATASE 84 U/L (46-116); ALT/SGPT 54 U/L (7.0-40); AST/SGOT 32 U/L (<34); BILIRUBIN,DIRECT 0.1 MG/DL (<0.4); BILIRUBIN,TOTAL 0.4 MG/DL (0.3-1.2); BLOOD UREA NITROGEN 20 MG/DL (9-23); CALCIUM LEVEL 9.1 MG/DL (8.3-10.6); CARBON DIOXIDE LEVEL 28 MMOL/L (20-31); CHLORIDE LEVEL 100 MMOL/L (98-107); CK-MB VALUE MASS 1.6 NG/ML (<3.6); CPK CREATINE PHOSPHOKINASE 58 U/L (46-171); GLOMERULAR FILTRATION RATE > 60.0 (>49); GLUCOSE, FASTING 373 MG/DL (74-106); MB/CK RELATIVE INDEX 2.75 (< OR =4); POTASSIUM SERUM 4.3 MMOL/L (3.5-5.1); SODIUM LEVEL 134 MMOL/L (136-145); TOTAL PROTEIN 6.5 G/DL (5.7-8.2)
[2023-10-03 18:15] VITALS: BP 161/86; O2SAT 100
[2023-10-03 18:30] VITALS: TEMP 97.3
[2023-10-03 19:06] LABS: CK-MB VALUE MASS 1.3 NG/ML (<3.6)
[2023-10-03 19:07] LABS: MB/CK RELATIVE INDEX 2.28 (< OR =4)
== END 2023-10-03 20:28 | disposition home or self-care (01) ==
LOC: M ED 16:40
DX: R07.9 Chest pain, unspecified (principal); E11.9 Type 2 diabetes mellitus without complications; I10 Essential (primary) hypertension; E78.5 Hyperlipidemia, unspecified; Z88.0 Allergy status to penicillin; Z88.8 Allergy status to other drugs, medicaments and biological substances; Z88.2 Allergy status to sulfonamides; Z79.899 Other long term (current) drug therapy; Z79.4 Long term (current) use of insulin; Z79.84 Long term (current) use of oral hypoglycemic drugs; Z79.810 Long term (current) use of selective estrogen receptor modulators (SERMs)

== ENCOUNTER 2023-10-20 15:04 | Emergency (ER) | payer OTHER, MEDICAID ==
[~2023-10-20] VITALS: Ht 177.8 cm; Wt 81.2 kg
[2023-10-20] MEDS: NS 1,000 ML IV ONE (18:11)
[2023-10-20] MEDS: PANTOPRAZOLE 40MG VIAL IV ONE (18:11)
[2023-10-20] MEDS: ONDANSETRON 4MG 2ML VIAL IV ONE (18:11)
[2023-10-20 18:21] LABS: BASO # 0.1 10^3/uL (0.0-0.2); BASO % 0.4 % (0.0-1.0); EOS # 0.1 10^3/uL (0.0-0.5); EOS % 0.9 % (0.0-3.0); HEMATOCRIT 40.2 % (42.0-52.0); LYMPH # 0.6 10^3/uL (1.5-5.0); LYMPH % 4.5 % (24.0-44.0); MEAN CORPUSCULAR HEMOGLOBIN 29.7 pg (27.0-33.0); MEAN CORPUSCULAR HGB CONC 32.3 g/dl (32.0-36.5); MEAN CORPUSCULAR VOLUME 91.8 fl (80.0-96.0); MONO # 1.2 10^3/uL (0.0-0.8); MONO % 8.5 % (2.0-8.0); NEUTROPHILS # 11.6 10^3/uL (1.5-8.5); NEUTROPHILS % 85.4 % (36.0-66.0); PLATELET COUNT, AUTOMATED 362 10^3/uL (150-450); RED BLOOD COUNT 4.38 10^6/uL (4.30-6.10); WHITE BLOOD COUNT 13.6 10^3/uL (4.0-10.0)
[2023-10-20 18:46] LABS: LIPASE 23 U/L (12-53)
[2023-10-20 18:48] LABS: ALBUMIN 4.1 G/DL (3.2-5.2); ALKALINE PHOSPHATASE 80 U/L (46-116); ALT/SGPT 57 U/L (7.0-40); AST/SGOT 27 U/L (<34); BILIRUBIN,DIRECT 0.2 MG/DL (<0.4); BILIRUBIN,TOTAL 0.6 MG/DL (0.3-1.2); BLOOD UREA NITROGEN 25 MG/DL (9-23); CALCIUM LEVEL 10.2 MG/DL (8.3-10.6); CARBON DIOXIDE LEVEL 29 MMOL/L (20-31); CHLORIDE LEVEL 102 MMOL/L (98-107); CREATININE FOR GFR 0.86 MG/DL (0.70-1.30); GLOMERULAR FILTRATION RATE > 60.0 (>49); GLUCOSE, FASTING 127 MG/DL (74-106); POTASSIUM SERUM 4.6 MMOL/L (3.5-5.1); SODIUM LEVEL 139 MMOL/L (136-145); TOTAL PROTEIN 7.3 G/DL (5.7-8.2)
[2023-10-20 19:12] LABS: RSV AMPLIFICATION NEGATIVE (NEGATIVE)
[2023-10-20 20:12] VITALS: BP 115/55; TEMP 99.2; O2SAT 98
[2023-10-20] MEDS ORDERED: ONDA4TAB6 PO (20:23)
[2023-10-20] MEDS ORDERED: LOPE-39 PO (20:23)
[2023-10-20] MEDS: LOPERAMIDE 2 MG CAPLET PO ONE (20:31)
== END 2023-10-20 20:58 | disposition home or self-care (01) ==
LOC: EDBD 15:04 → M ED 15:04
DX: R11.10 Vomiting, unspecified (principal); R19.7 Diarrhea, unspecified; Z87.19 Personal history of other diseases of the digestive system; Z79.4 Long term (current) use of insulin; Z79.01 Long term (current) use of anticoagulants; Z79.899 Other long term (current) drug therapy; Z88.8 Allergy status to other drugs, medicaments and biological substances; Z88.0 Allergy status to penicillin; Z88.2 Allergy status to sulfonamides; Z88.1 Allergy status to other antibiotic agents; Z88.5 Allergy status to narcotic agent
CPT/HCPCS: 74021; 80048; 80076; 83690; 85025; 87507; 87631; 96361; 96374; 96375; 99284; C9113; J2405

== ENCOUNTER → 2023-10-28 | Outpatient (CLI) | payer OTHER, MEDICAID ==
[~2023-10-28] MED LIST changes: +LOPE-39 PO; -ROSU10TA6; -ROSU10TA6 PO; +ROSU10TA61; +ROSU10TA61 PO
== END ==
LOC: M PLALAB 07:56
PROVIDERS: ATTEND Internal Medicine Gastroenterology
DX: K59.00 Constipation, unspecified (principal); K21.9 Gastro-esophageal reflux disease without esophagitis; K44.9 Diaphragmatic hernia without obstruction or gangrene; K52.831 Collagenous colitis; E83.42 Hypomagnesemia

== ENCOUNTER → 2023-10-28 | Outpatient (CLI) | payer OTHER, MEDICAID ==
[2023-10-28 11:33] LABS: BASO # 0.1 10^3/uL (0.0-0.2); BASO % 1.1 % (0.0-1.0); EOS # 0.3 10^3/uL (0.0-0.5); EOS % 4.3 % (0.0-3.0); HEMATOCRIT 34.7 % (42.0-52.0); HEMOGLOBIN 11.1 g/dl (13.5-17.5); LYMPH # 1.2 10^3/uL (1.5-5.0); LYMPH % 17.3 % (24.0-44.0); MEAN CORPUSCULAR HEMOGLOBIN 29.7 pg (27.0-33.0); MEAN CORPUSCULAR VOLUME 92.8 fl (80.0-96.0); MONO # 0.8 10^3/uL (0.0-0.8); MONO % 10.8 % (2.0-8.0); NEUTROPHILS # 4.6 10^3/uL (1.5-8.5); NEUTROPHILS % 65.2 % (36.0-66.0); PLATELET COUNT, AUTOMATED 334 10^3/uL (150-450); RED BLOOD COUNT 3.74 10^6/uL (4.30-6.10)
[2023-10-28 11:34] LABS: BLOOD UREA NITROGEN 21 MG/DL (9-23); CALCIUM LEVEL 9.7 MG/DL (8.3-10.6); CARBON DIOXIDE LEVEL 35 MMOL/L (20-31); CHLORIDE LEVEL 98 MMOL/L (98-107); CREATININE FOR GFR 0.79 MG/DL (0.70-1.30); GLOMERULAR FILTRATION RATE > 60.0 (>49); GLUCOSE, FASTING 266 MG/DL (74-106); POTASSIUM SERUM 5.3 MMOL/L (3.5-5.1); SODIUM LEVEL 136 MMOL/L (136-145)
== END ==
LOC: M PLALAB 07:54
PROVIDERS: ATTEND Internal Medicine Hematology
DX: E11.65 Type 2 diabetes mellitus with hyperglycemia (principal)

== ENCOUNTER → 2023-11-27 | Outpatient (CLI) | payer OTHER, MEDICAID ==
[2023-11-27 16:03] LABS: BASO # 0.1 10^3/uL (0.0-0.2); BASO % 1.3 % (0.0-1.0); EOS # 0.3 10^3/uL (0.0-0.5); EOS % 4.9 % (0.0-3.0); HEMATOCRIT 35.5 % (42.0-52.0); HEMOGLOBIN 11.3 g/dl (13.5-17.5); LYMPH # 1.5 10^3/uL (1.5-5.0); LYMPH % 22.1 % (24.0-44.0); MEAN CORPUSCULAR HEMOGLOBIN 29.3 pg (27.0-33.0); MEAN CORPUSCULAR HGB CONC 31.8 g/dl (32.0-36.5); MONO # 0.7 10^3/uL (0.0-0.8); MONO % 10.5 % (2.0-8.0); NEUTROPHILS # 4.1 10^3/uL (1.5-8.5); NEUTROPHILS % 60.5 % (36.0-66.0); PLATELET COUNT, AUTOMATED 272 10^3/uL (150-450); RED BLOOD COUNT 3.86 10^6/uL (4.30-6.10); WHITE BLOOD COUNT 6.8 10^3/uL (4.0-10.0)
[2023-11-27 16:30] LABS: BLOOD UREA NITROGEN 20 MG/DL (9-23); CALCIUM LEVEL 9.8 MG/DL (8.3-10.6); CARBON DIOXIDE LEVEL 34 MMOL/L (20-31); CHLORIDE LEVEL 103 MMOL/L (98-107); CREATININE FOR GFR 0.81 MG/DL (0.70-1.30); GLOMERULAR FILTRATION RATE > 60.0 (>49); GLUCOSE, FASTING 188 MG/DL (74-106); POTASSIUM SERUM 5.3 MMOL/L (3.5-5.1); SODIUM LEVEL 140 MMOL/L (136-145)
== END ==
LOC: M PLALAB 12:19
PROVIDERS: ATTEND Internal Medicine Hematology
DX: E11.65 Type 2 diabetes mellitus with hyperglycemia (principal)

== ENCOUNTER 2023-12-12 10:58 | Emergency (ER) | payer OTHER, MEDICAID ==
[~2023-12-12] VITALS: Ht 175.3 cm; Wt 71.5 kg
[~2023-12-12 10:58] MED LIST changes: +ONDA-282 PO; +ONDA-282 SL; -ONDA4TAB6 PO; -ONDA4TAB6 SL
[2023-12-12 11:57] LABS: BASO # 0.1 10^3/uL (0.0-0.2); BASO % 0.8 % (0.0-1.0); EOS # 0.2 10^3/uL (0.0-0.5); EOS % 1.7 % (0.0-3.0); HEMATOCRIT 35.4 % (42.0-52.0); LYMPH # 1.1 10^3/uL (1.5-5.0); LYMPH % 12.2 % (24.0-44.0); MEAN CORPUSCULAR HEMOGLOBIN 29.9 pg (27.0-33.0); MEAN CORPUSCULAR HGB CONC 33.9 g/dl (32.0-36.5); MEAN CORPUSCULAR VOLUME 88.1 fl (80.0-96.0); MONO # 0.6 10^3/uL (0.0-0.8); MONO % 6.4 % (2.0-8.0); NEUTROPHILS % 78.3 % (36.0-66.0); PLATELET COUNT, AUTOMATED 333 10^3/uL (150-450); RED BLOOD COUNT 4.02 10^6/uL (4.30-6.10)
[2023-12-12 12:22] LABS: LIPASE 24 U/L (12-53)
[2023-12-12 12:24] LABS: ALBUMIN 3.9 G/DL (3.2-5.2); ALKALINE PHOSPHATASE 98 U/L (46-116); ALT/SGPT 37 U/L (7.0-40); AST/SGOT 15 U/L (<34); BILIRUBIN,DIRECT 0.2 MG/DL (<0.4); BILIRUBIN,TOTAL 0.6 MG/DL (0.3-1.2); TOTAL PROTEIN 7.2 G/DL (5.7-8.2)
[2023-12-12] MEDS ORDERED: ISOVUE-370 76% 100ML VIAL As Ordered ONE (14:01)
[2023-12-12 14:02] LABS: BLOOD UREA NITROGEN 25 MG/DL (9-23); CALCIUM LEVEL 9.3 MG/DL (8.3-10.6); CARBON DIOXIDE LEVEL 29 MMOL/L (20-31); CHLORIDE LEVEL 100 MMOL/L (98-107); CREATININE FOR GFR 0.81 MG/DL (0.70-1.30); GLOMERULAR FILTRATION RATE > 60.0 (>49); GLUCOSE, FASTING 287 MG/DL (74-106); POTASSIUM SERUM 4.5 MMOL/L (3.5-5.1); SODIUM LEVEL 135 MMOL/L (136-145)
[2023-12-12 14:13] LABS: C REACTIVE PROTEIN QUANTITATIV < 0.40 MG/DL (<1.0)
[2023-12-12] MEDS ORDERED: DULC100C2 PO (15:16)
[2023-12-12] MEDS: DICYCLOMINE 10 MG CAP PO ONE (15:32)
[2023-12-12 15:43] VITALS: BP 141/67; TEMP 97.4; O2SAT 98
== END 2023-12-12 15:44 | disposition home or self-care (01) ==
LOC: M ED 10:58
DX: K59.00 Constipation, unspecified (principal); R10.9 Unspecified abdominal pain; E11.9 Type 2 diabetes mellitus without complications; I10 Essential (primary) hypertension; F41.9 Anxiety disorder, unspecified; F32.A Depression, unspecified; K58.9 Irritable bowel syndrome, unspecified; Z88.0 Allergy status to penicillin; Z88.1 Allergy status to other antibiotic agents; Z88.2 Allergy status to sulfonamides; Z88.5 Allergy status to narcotic agent; Z79.4 Long term (current) use of insulin; Z79.84 Long term (current) use of oral hypoglycemic drugs; Z79.899 Other long term (current) drug therapy
CPT/HCPCS: 36415; 74177; 80047; 80048; 80076; 81001; 83690; 85025; 86140; 99284; Q9967

== ENCOUNTER → 2023-12-19 | Outpatient (REF) | payer OTHER, MEDICAID ==
[~2023-12-19] MED LIST changes: +DULC100C2 PO
[2023-12-19 13:53] LABS: CLOSTRIDIUM DIFFICILE PCR NEGATIVE (NEGATIVE)
== END ==
LOC: M LAB REF 12:19
PROVIDERS: ATTEND Internal Medicine Gastroenterology
DX: R19.7 Diarrhea, unspecified (principal)

== ENCOUNTER → 2024-01-15 | Outpatient (CLI) | payer OTHER, MEDICAID ==
[2024-01-15 10:24] LABS: BASO # 0.1 10^3/uL (0.0-0.2); BASO % 1.1 % (0.0-1.0); EOS # 0.2 10^3/uL (0.0-0.5); EOS % 3.3 % (0.0-3.0); HEMATOCRIT 33.9 % (42.0-52.0); LYMPH # 1.2 10^3/uL (1.5-5.0); LYMPH % 18.9 % (24.0-44.0); MEAN CORPUSCULAR HEMOGLOBIN 29.3 pg (27.0-33.0); MEAN CORPUSCULAR HGB CONC 32.4 g/dl (32.0-36.5); MEAN CORPUSCULAR VOLUME 90.4 fl (80.0-96.0); MONO # 0.6 10^3/uL (0.0-0.8); MONO % 10.2 % (2.0-8.0); NEUTROPHILS # 4.2 10^3/uL (1.5-8.5); PLATELET COUNT, AUTOMATED 324 10^3/uL (150-450); RED BLOOD COUNT 3.75 10^6/uL (4.30-6.10); WHITE BLOOD COUNT 6.3 10^3/uL (4.0-10.0)
[2024-01-15 10:39] LABS: HEMOGLOBIN A1c 9.3 % (4.0-6.0)
[2024-01-15 10:52] LABS: MAU/CREAT RATIO 27.2 MCG/MG (0.0-30.0)
[2024-01-15 10:54] LABS: PSA SCREENING 1.72 NG/ML (< 4.00)
[2024-01-15 10:58] LABS: VITAMIN B12 LEVEL 641 PG/ML (211-911)
[2024-01-15 11:00] LABS: C REACTIVE PROTEIN QUANTITATIV < 0.40 MG/DL (<1.0); THYROID STIMULATING HORMONE 0.617 uIU/ML (0.55-4.78)
[2024-01-15 11:02] LABS: ALBUMIN 3.9 G/DL (3.2-5.2); ALKALINE PHOSPHATASE 90 U/L (46-116); ALT/SGPT 67 U/L (7.0-40); AST/SGOT 34 U/L (<34); BILIRUBIN,TOTAL 0.4 MG/DL (0.3-1.2); BLOOD UREA NITROGEN 22 MG/DL (9-23); CALCIUM LEVEL 9.7 MG/DL (8.3-10.6); CARBON DIOXIDE LEVEL 31 MMOL/L (20-31); CHLORIDE LEVEL 104 MMOL/L (98-107); CHOLESTEROL LEVEL 103 MG/DL (<200); CHOLESTEROL RISK RATIO 2.82 (<5); CREATININE FOR GFR 0.89 MG/DL (0.70-1.30); FREE T4 1.05 NG/DL (0.89-1.76); GLOMERULAR FILTRATION RATE > 60.0 (>49); GLUCOSE, FASTING 211 MG/DL (74-106); HDL CHOLESTEROL 36.4 MG/DL (>40); LDL CHOLESTEROL 38.6 MG/DL (<100); NON-HDL-C 66.6 MG/DL; POTASSIUM SERUM 5.2 MMOL/L (3.5-5.1); SODIUM LEVEL 138 MMOL/L (136-145); TOTAL PROTEIN 7.1 G/DL (5.7-8.2); TRIGLYCERIDES LEVEL 140 MG/DL (<150)
== END ==
LOC: M PLALAB 08:18
PROVIDERS: ATTEND Internal Medicine Hematology
DX: D50.9 Iron deficiency anemia, unspecified (principal); E11.9 Type 2 diabetes mellitus without complications; Z12.5 Encounter for screening for malignant neoplasm of prostate; Z79.899 Other long term (current) drug therapy

== ENCOUNTER 2024-01-19 08:04 | Emergency (ER) | payer OTHER, MEDICAID ==
[~2024-01-19] VITALS: Ht 177.8 cm; Wt 81.0 kg
[2024-01-19 12:39] VITALS: BP 156/80; TEMP 97.7; O2SAT 95
== END 2024-01-19 14:11 | disposition home or self-care (01) ==
LOC: M ED 08:04
DX: I82.501 Chronic embolism and thrombosis of unspecified deep veins of right lower extremity (principal); R60.0 Localized edema; K21.9 Gastro-esophageal reflux disease without esophagitis; I10 Essential (primary) hypertension; G47.33 Obstructive sleep apnea (adult) (pediatric); Z88.1 Allergy status to other antibiotic agents; Z88.0 Allergy status to penicillin; Z88.2 Allergy status to sulfonamides; Z88.5 Allergy status to narcotic agent; Z88.8 Allergy status to other drugs, medicaments and biological substances; Z79.4 Long term (current) use of insulin; Z79.84 Long term (current) use of oral hypoglycemic drugs; Z79.810 Long term (current) use of selective estrogen receptor modulators (SERMs); Z79.899 Other long term (current) drug therapy

== ENCOUNTER → 2024-03-25 | Outpatient (CLI) | payer OTHER, MEDICAID ==
[~2024-03-25] MED LIST changes: +GABA-1490; +GABA-1635; +GABA-1635 PO; -GABA600T4; -GABA800T4; -GABA800T4 PO
== END ==
LOC: M RAD 10:15
PROVIDERS: ATTEND Internal Medicine Hematology
DX: R42 Dizziness and giddiness (principal)

== ENCOUNTER 2024-04-09 10:43 | Inpatient (IN) | payer MEDICARE, MEDICAID ==
[~2024-04-09] VITALS: Ht 177.8 cm; Wt 81.8 kg
[~2024-04-09 10:43] MED LIST changes: +GLIP10TA15; -GLIP10TA6
[2024-04-09 12:01] LABS: VENOUS BASE EXCESS 1.9 (-2.0-2.0); VENOUS O2 SATURATION 58.8 % (60.0-80.0); VENOUS PARTIAL PRESSURE CO2 56.3 mmHg (38.0-50.0); VENOUS PARTIAL PRESSURE O2 31.5 mmHg (30.0-50.0); VENOUS STANDARD HCO3 25.2 MMOL/L; VENOUS TOTAL CO2 30.7 MMOL/L (24.0-28.0)
[2024-04-09 12:09] LABS: BASO # 0.1 10^3/uL (0.0-0.2); EOS # 0.2 10^3/uL (0.0-0.5); EOS % 3.5 % (0.0-3.0); HEMATOCRIT 36.2 % (42.0-52.0); HEMOGLOBIN 12.2 g/dl (13.5-17.5); LYMPH # 1.1 10^3/uL (1.5-5.0); LYMPH % 23.1 % (24.0-44.0); MEAN CORPUSCULAR HEMOGLOBIN 29.5 pg (27.0-33.0); MEAN CORPUSCULAR HGB CONC 33.7 g/dl (32.0-36.5); MEAN CORPUSCULAR VOLUME 87.7 fl (80.0-96.0); MONO # 0.5 10^3/uL (0.0-0.8); MONO % 9.3 % (2.0-8.0); NEUTROPHILS % 62.1 % (36.0-66.0); PLATELET COUNT, AUTOMATED 276 10^3/uL (150-450); RED BLOOD COUNT 4.13 10^6/uL (4.30-6.10); WHITE BLOOD COUNT 4.8 10^3/uL (4.0-10.0)
[2024-04-09 12:39] LABS: BLOOD UREA NITROGEN 23 MG/DL (9-23); CARBON DIOXIDE LEVEL 32 MMOL/L (20-31); CHLORIDE LEVEL 104 MMOL/L (98-107); CK-MB VALUE MASS < 1.0 NG/ML (<3.6); CPK CREATINE PHOSPHOKINASE 35 U/L (46-171); CREATININE FOR GFR 0.94 MG/DL (0.70-1.30); GLOMERULAR FILTRATION RATE > 60.0 (>49); GLUCOSE, FASTING 231 MG/DL (74-106); MB/CK RELATIVE INDEX 2.85 (< OR =4); POTASSIUM SERUM 4.6 MMOL/L (3.5-5.1); SODIUM LEVEL 136 MMOL/L (136-145)
[2024-04-09 12:40] LABS: IRON (FE) 92 UG/DL (65-175); PERCENT SATURATION 29.6 % (19.7-50.0); TOTAL IRON BINDING CAPACITY 311 UG/DL (250-425)
[2024-04-09 13:12] LABS: HEMOGLOBIN A1c 11.5 % (4.0-6.0)
[2024-04-09] MEDS: HumuLIN R (REGULAR) INSULIN (NovoLIN R) **100U/ML** PER UNIT IV ONE (13:59)
[2024-04-09] MEDS ORDERED: ACETAMINOPHEN 325 MG TAB PO PRN (15:40)
[2024-04-09] MEDS ORDERED: GLUCOSE 4 GM CHEW PO PRN (15:45)
[2024-04-09] MEDS ORDERED: DEXTROSE 50% 50ML SYRINGE IV PRN (15:45)
[2024-04-09] MEDS ORDERED: GLUCAGON INJ 1MG VIAL SC PRN (15:45)
[2024-04-09] MEDS ORDERED: DOXE50CA PO (16:02)
[2024-04-09] MEDS ORDERED: GABA-1635 PO (16:02)
[2024-04-09] MEDS ORDERED: HYDR50TA70 PO (16:02)
[2024-04-09] MEDS ORDERED: CELE0.09 PO (16:08)
[2024-04-09] MEDS ORDERED: TRAZ-257 PO (16:08)
[2024-04-09] MEDS ORDERED: LOPE1CAP5 PO (16:08)
[2024-04-09] MEDS ORDERED: FERR325T19 PO (16:08)
[2024-04-09] MEDS ORDERED: MIRT-10 PO (16:08)
[2024-04-09] MEDS ORDERED: LEVOTAB10 PO (16:08)
[2024-04-09] MEDS ORDERED: ARIP1TAB10 PO (16:08)
[2024-04-09] MEDS ORDERED: LANTINJ4 INJ (16:08)
[2024-04-09] MEDS ORDERED: QUET100T2 PO (16:08)
[2024-04-09] MEDS ORDERED: HOME MED LIST COMPLETE! XX SCH (16:10)
[2024-04-09] MEDS ORDERED: MECLIZINE 12.5 MG TAB PO PRN (16:45)
[2024-04-09] MEDS ORDERED: ONDANSETRON 4MG ORAL DISINTEGRATING TAB PO PRN (16:45)
[2024-04-09] MEDS ORDERED: PILL CUTTER 1 EACH XX PRN (17:10)
[2024-04-09] MEDS: INSULIN LISPRO (NovoLOG) PER UNIT SC SCH ×2 (18:05→20:43)
[2024-04-09 18:40] VITALS: BP 151/77; TEMP 98.6; O2SAT 98
[2024-04-09 20:08] VITALS: BP 152/76; TEMP 98.1; O2SAT 99
[2024-04-09] MEDS: LEVEMIR (INSULIN DETEMIR) 1 UNITS/0.01ML SC SCH (20:43)
[2024-04-09] MEDS: AZELASTINE 137MCG NASAL SPY 30 ML (ASTELIN) SCH (20:43)
[2024-04-09] MEDS: MIRTAZAPINE 15 MG TAB PO SCH (20:43)
[2024-04-09] MEDS: FAMOTIDINE 20 MG TAB PO SCH (20:43)
[2024-04-09] MEDS: hydrOXYzine 50 MG TAB PO SCH (20:43)
[2024-04-09] MEDS: PANTOPRAZOLE 40MG TAB (PROTONIX) PO SCH (20:43)
[2024-04-09] MEDS: GABAPENTIN 400MG CAP PO SCH (20:44)
[2024-04-09] MEDS: traZODone 100 MG TAB PO SCH (20:44)
[2024-04-09] MEDS: APIXABAN 5 MG TAB (ELIQUIS) PO SCH (20:44)
[2024-04-09] MEDS ORDERED: LEVEMIR (INSULIN DETEMIR) 1 UNITS/0.01ML SC SCH (21:00)
[2024-04-09] MEDS: QUEtiapine FUMARATE 100 MG TAB PO SCH (21:05)
[2024-04-09] MEDS: DOXEPIN 25 MG CAP PO SCH (21:06)
[2024-04-10 04:19] VITALS: BP 123/73; TEMP 97.3; O2SAT 97
[2024-04-10 05:28] LABS: HEMATOCRIT 34.6 % (42.0-52.0); HEMOGLOBIN 11.6 g/dl (13.5-17.5); MEAN CORPUSCULAR HEMOGLOBIN 29.3 pg (27.0-33.0); MEAN CORPUSCULAR HGB CONC 33.5 g/dl (32.0-36.5); MEAN CORPUSCULAR VOLUME 87.4 fl (80.0-96.0); PLATELET COUNT, AUTOMATED 268 10^3/uL (150-450); RED BLOOD COUNT 3.96 10^6/uL (4.30-6.10); WHITE BLOOD COUNT 6.6 10^3/uL (4.0-10.0)
[2024-04-10 05:55] LABS: ALBUMIN 3.4 G/DL (3.2-5.2); ALKALINE PHOSPHATASE 81 U/L (46-116); ALT/SGPT 45 U/L (7.0-40); AST/SGOT 16 U/L (<34); BILIRUBIN,TOTAL 0.3 MG/DL (0.3-1.2); BLOOD UREA NITROGEN 23 MG/DL (9-23); CALCIUM LEVEL 10.1 MG/DL (8.3-10.6); CARBON DIOXIDE LEVEL 30 MMOL/L (20-31); CHLORIDE LEVEL 105 MMOL/L (98-107); CREATININE FOR GFR 0.77 MG/DL (0.70-1.30); GLOMERULAR FILTRATION RATE > 60.0 (>49); GLUCOSE, FASTING 184 MG/DL (74-106); POTASSIUM SERUM 4.1 MMOL/L (3.5-5.1); SODIUM LEVEL 138 MMOL/L (136-145); TOTAL PROTEIN 6.4 G/DL (5.7-8.2)
[2024-04-10] MEDS: DOCUSATE SODIUM 100MG CAPSULE PO SCH (08:27)
[2024-04-10] MEDS: ROSUVASTATIN 10 MG TAB (CRESTOR) PO SCH (08:27)
[2024-04-10] MEDS: FERROUS SULFATE 325MG TAB PO SCH (08:27)
[2024-04-10] MEDS: ARIPiprazole 15 MG TAB (AbiLIFY) PO SCH (08:27)
[2024-04-10] MEDS: TAMSULOSIN 0.4 MG CAP PO SCH (08:27)
[2024-04-10] MEDS: FUROSEMIDE 20 MG TAB PO SCH (08:27)
[2024-04-10] MEDS: GABAPENTIN 400MG CAP PO SCH (08:28)
[2024-04-10] MEDS: LOSARTAN 50MG TABLET PO SCH (08:35)
[2024-04-10 08:36] VITALS: BP 143/76
[2024-04-10] MEDS: bisoproloL fumarate 5 MG TAB PO SCH (08:36)
[2024-04-10] MEDS: FLUBLOK(EGGFREE) TRIVAL(24-25) VACCINE PF 0.5ML SYRINGE 18YRS & OLDER IM.IMMUN ONE (08:39)
[2024-04-10] MEDS ORDERED: LEVEMIR (INSULIN DETEMIR) 1 UNITS/0.01ML SC SCH (21:00)
== END 2024-04-10 15:19 | disposition home or self-care (01) | DRG 639 ==
LOC: M ED 10:43 → EDSEX 10:43 → EDBD 10:43 → M ED INP 15:36 → M MSPAV 18:38
PROVIDERS: ADMIT Hospitalist; ATTEND Hospitalist
PROC: B246ZZZ Ultrasonography of Right and Left Heart (ICD-10-PCS; principal; 2024-04-09)
DX: E11.65 Type 2 diabetes mellitus with hyperglycemia (principal); I10 Essential (primary) hypertension; E78.5 Hyperlipidemia, unspecified; F41.9 Anxiety disorder, unspecified; F32.A Depression, unspecified; G47.00 Insomnia, unspecified; I95.1 Orthostatic hypotension; R42 Dizziness and giddiness; E11.40 Type 2 diabetes mellitus with diabetic neuropathy, unspecified; D64.9 Anemia, unspecified; R29.6 Repeated falls; Z86.718 Personal history of other venous thrombosis and embolism; Z86.711 Personal history of pulmonary embolism; Z88.0 Allergy status to penicillin; Z88.1 Allergy status to other antibiotic agents; Z88.2 Allergy status to sulfonamides; Z88.5 Allergy status to narcotic agent; Z88.8 Allergy status to other drugs, medicaments and biological substances; Z79.01 Long term (current) use of anticoagulants; Z79.4 Long term (current) use of insulin; Z79.899 Other long term (current) drug therapy

== ENCOUNTER → 2024-04-15 | Outpatient (CLI) | payer MEDICARE, MEDICAID ==
[~2024-04-15] MED LIST changes: +ARIP1TAB10 PO; +CELE0.09 PO; +FERR325T19 PO; +HYDR50TA70 PO; +LANTINJ4 INJ; +LEVOTAB10 PO; +LOPE1CAP5 PO; +MIRT-10 PO; +QUET100T2 PO; +TRAZ-257 PO
[2024-04-15 13:46] LABS: BASO # 0.1 10^3/uL (0.0-0.2); EOS # 0.3 10^3/uL (0.0-0.5); EOS % 4.1 % (0.0-3.0); HEMATOCRIT 38.5 % (42.0-52.0); HEMOGLOBIN 12.8 g/dl (13.5-17.5); LYMPH # 1.4 10^3/uL (1.5-5.0); LYMPH % 18.3 % (24.0-44.0); MEAN CORPUSCULAR HEMOGLOBIN 29.6 pg (27.0-33.0); MEAN CORPUSCULAR HGB CONC 33.2 g/dl (32.0-36.5); MEAN CORPUSCULAR VOLUME 89.1 fl (80.0-96.0); MONO # 0.7 10^3/uL (0.0-0.8); MONO % 9.2 % (2.0-8.0); NEUTROPHILS # 5.2 10^3/uL (1.5-8.5); NEUTROPHILS % 66.8 % (36.0-66.0); PLATELET COUNT, AUTOMATED 338 10^3/uL (150-450); RED BLOOD COUNT 4.32 10^6/uL (4.30-6.10); WHITE BLOOD COUNT 7.8 10^3/uL (4.0-10.0)
[2024-04-15 14:11] LABS: IRON (FE) 94 UG/DL (65-175); PERCENT SATURATION 29.4 % (19.7-50.0); TOTAL IRON BINDING CAPACITY 320 UG/DL (250-425)
[2024-04-15 14:15] LABS: BLOOD UREA NITROGEN 23 MG/DL (9-23); CALCIUM LEVEL 10.1 MG/DL (8.3-10.6); CARBON DIOXIDE LEVEL 32 MMOL/L (20-31); CHLORIDE LEVEL 103 MMOL/L (98-107); FERRITIN 214.4 NG/ML (10.5-307.3); GLOMERULAR FILTRATION RATE > 60.0 (>49); GLUCOSE, FASTING 224 MG/DL (74-106); POTASSIUM SERUM 5.6 MMOL/L (3.5-5.1); SODIUM LEVEL 137 MMOL/L (136-145)
== END ==
LOC: M PLALAB 09:18
PROVIDERS: ATTEND Internal Medicine Hematology
DX: D64.9 Anemia, unspecified (principal)

== ENCOUNTER → 2024-04-23 | Outpatient (CLI) | payer MEDICARE, MEDICAID ==
[2024-04-23 14:03] LABS: APPEARANCE, URINE CLEAR (CLEAR); BACTERIA, URINE AUTO NEGATIVE (NEGATIVE); BILIRUBIN, URINE AUTO NEGATIVE (NEGATIVE); BLOOD, URINE BLOOD NEGATIVE (NEGATIVE); COLOR, URINE YELLOW (YELLOW); GLUCOSE, URINE (UA) AUTO 3+ mg/dL (NEGATIVE); KETONE, URINE AUTO NEGATIVE (NEGATIVE); LEUKOCYTE ESTERASE, URINE AUTO NEGATIVE (NEGATIVE); NITRITE, URINE AUTO NEGATIVE (NEGATIVE); PROTEIN, URINE AUTO NEGATIVE (NEGATIVE); RBC, URINE AUTO 1 /HPF (0-3); SPECIFIC GRAVITY URINE AUTO 1.026 (1.002-1.035); SQUAMOUS EPITHELIAL CELL UR AU 0 /HPF (0-6); UROBILINOGEN, URINE AUTO 0.2 mg/dL (0.0-2.0); WBC, URINE AUTO 0 /HPF (0-3)
== END ==
LOC: M PLALAB 10:52
PROVIDERS: ATTEND Internal Medicine Hematology
DX: D64.9 Anemia, unspecified (principal); R30.0 Dysuria

== ENCOUNTER 2024-05-18 09:42 | Outpatient (CLI) | payer MEDICARE, MEDICAID ==
[~2024-05-18] VITALS: Ht 177.8 cm; Wt 82.7 kg
[~2024-05-18 09:42] MED LIST changes: +ALBUTEROL SULFATE 2.5MG/0.5ML INH NEB SOLN INH PRN; +EPINEPHrine INJ 1 MG/ML 1ML AMP IM PRN; +NS 1,000 ML IV SCH; +diphenhydrAMINE 50MG/ML VIAL IV PRN; +methylPREDNISolone 125MG 2ML VIAL IV PRN
[2024-05-18 10:45] VITALS: BP 141/65; O2SAT 99
[2024-05-18] MEDS: IRON SUCROSE 300 MG in NS 250 ML IV ONE (10:59)
[2024-05-18 12:37] VITALS: BP 132/65; O2SAT 98
== END 2024-05-18 12:40 | disposition home or self-care (01) ==
LOC: M INFU 09:42
PROVIDERS: ATTEND Internal Medicine Hematology
DX: D50.9 Iron deficiency anemia, unspecified (principal); Z88.0 Allergy status to penicillin; Z88.1 Allergy status to other antibiotic agents; Z88.2 Allergy status to sulfonamides; Z88.5 Allergy status to narcotic agent
CPT/HCPCS: 96365; J1756

== ENCOUNTER 2024-05-25 11:15 | Outpatient (CLI) | payer MEDICARE, MEDICAID ==
[~2024-05-25] VITALS: Ht 175.3 cm; Wt 82.3 kg
[~2024-05-25 11:15] MED LIST changes: -NS 1,000 ML IV SCH
[2024-05-25 11:20] VITALS: BP 136/76; O2SAT 98
[2024-05-25] MEDS ORDERED: NS 1,000 ML IV SCH (11:30)
[2024-05-25] MEDS: IRON SUCROSE 300 MG in NS 250 ML OVER 90 MIN. IV ONE (11:41)
[2024-05-25 13:20] VITALS: BP 123/67; O2SAT 99
== END 2024-05-25 13:20 ==
LOC: M INFU 11:15
PROVIDERS: ATTEND Internal Medicine Hematology
DX: D50.9 Iron deficiency anemia, unspecified (principal); Z88.0 Allergy status to penicillin; Z88.1 Allergy status to other antibiotic agents; Z88.2 Allergy status to sulfonamides; Z88.5 Allergy status to narcotic agent
CPT/HCPCS: 96365; 96366; J1756

== ENCOUNTER 2024-07-20 11:11 | Inpatient (IN) | payer MEDICARE, MEDICAID ==
[~2024-07-20] VITALS: Ht 175.3 cm; Wt 77.5 kg
[~2024-07-20 11:11] MED LIST changes: -ALBUTEROL SULFATE 2.5MG/0.5ML INH NEB SOLN INH PRN; -EPINEPHrine INJ 1 MG/ML 1ML AMP IM PRN; -diphenhydrAMINE 50MG/ML VIAL IV PRN; -methylPREDNISolone 125MG 2ML VIAL IV PRN
[2024-07-20 11:48] LABS: BASO # 0.1 10^3/uL (0.0-0.2); BASO % 0.3 % (0.0-1.0); EOS # 0.1 10^3/uL (0.0-0.5); EOS % 0.6 % (0.0-3.0); HEMATOCRIT 35.3 % (42.0-52.0); HEMOGLOBIN 11.8 g/dl (13.5-17.5); LYMPH # 0.8 10^3/uL (1.5-5.0); LYMPH % 4.1 % (24.0-44.0); MEAN CORPUSCULAR HEMOGLOBIN 29.2 pg (27.0-33.0); MEAN CORPUSCULAR HGB CONC 33.4 g/dl (32.0-36.5); MEAN CORPUSCULAR VOLUME 87.4 fl (80.0-96.0); MONO % 10.9 % (2.0-8.0); NEUTROPHILS # 15.3 10^3/uL (1.5-8.5); NEUTROPHILS % 82.2 % (36.0-66.0); PLATELET COUNT, AUTOMATED 253 10^3/uL (150-450); RED BLOOD COUNT 4.04 10^6/uL (4.30-6.10); WHITE BLOOD COUNT 18.6 10^3/uL (4.0-10.0)
[2024-07-20 12:15] LABS: BLOOD UREA NITROGEN 15 MG/DL (9-23); CALCIUM LEVEL 8.6 MG/DL (8.3-10.6); CARBON DIOXIDE LEVEL 29 MMOL/L (20-31); CHLORIDE LEVEL 104 MMOL/L (98-107); CREATININE FOR GFR 0.91 MG/DL (0.70-1.30); GLOMERULAR FILTRATION RATE > 60.0 (>49); GLUCOSE, FASTING 210 MG/DL (74-106); POTASSIUM SERUM 3.7 MMOL/L (3.5-5.1); SODIUM LEVEL 140 MMOL/L (136-145)
[2024-07-20] MEDS ORDERED: ISOVUE-370 76% 100ML VIAL As Ordered ONE (12:49)
[2024-07-20 13:00] LABS: INR 1.46; PARTIAL THROMBOPLASTIN TIME 38.9 SECONDS (24.8-34.2)
[2024-07-20 13:14] LABS: CK-MB VALUE MASS < 1.0 NG/ML (<3.6)
[2024-07-20 13:15] LABS: LIPASE 18 U/L (12-53)
[2024-07-20 13:15] LABS: APPEARANCE, URINE CLEAR (CLEAR); BACTERIA, URINE AUTO NEGATIVE (NEGATIVE); BILIRUBIN, URINE AUTO NEGATIVE (NEGATIVE); BLOOD, URINE BLOOD 1+ (NEGATIVE); COLOR, URINE YELLOW (YELLOW); GLUCOSE, URINE (UA) AUTO 3+ mg/dL (NEGATIVE); KETONE, URINE AUTO 1+ mg/dL (NEGATIVE); LEUKOCYTE ESTERASE, URINE AUTO NEGATIVE (NEGATIVE); MUCUS, URINE SMALL (NEGATIVE); NITRITE, URINE AUTO NEGATIVE (NEGATIVE); PROTEIN, URINE AUTO 2+ mg/dL (NEGATIVE); RBC, URINE AUTO 3 /HPF (0-3); SPECIFIC GRAVITY URINE AUTO 1.014 (1.002-1.035); SQUAMOUS EPITHELIAL CELL UR AU 0 /HPF (0-6); WBC, URINE AUTO 0 /HPF (0-3)
[2024-07-20 13:16] LABS: CPK CREATINE PHOSPHOKINASE 35 U/L (46-171); MB/CK RELATIVE INDEX 2.85 (< OR =4)
[2024-07-20 13:17] LABS: ALBUMIN 3.3 G/DL (3.2-5.2); ALKALINE PHOSPHATASE 88 U/L (40-129); ALT/SGPT 31 U/L (7.0-40); AST/SGOT 16 U/L (<34); BILIRUBIN,DIRECT 0.3 MG/DL (<0.4); BILIRUBIN,TOTAL 0.9 MG/DL (0.3-1.2); TOTAL PROTEIN 7.2 G/DL (5.7-8.2)
[2024-07-20 13:18] LABS: THYROID STIMULATING HORMONE 0.614 uIU/ML (0.55-4.78)
[2024-07-20 13:19] LABS: FREE T4 1.09 NG/DL (0.89-1.76)
[2024-07-20] MEDS: LevoFLOXacin IV 750 MG in IV 1 EA IV ONE (13:21)
[2024-07-20] MEDS: NS 500 ML IV ONE ×2 (13:21→15:27)
[2024-07-20] MEDS: ACETAMINOPHEN 325 MG TAB PO ONE (13:22)
[2024-07-20 14:12] LABS: CK-MB VALUE MASS < 1.0 NG/ML (<3.6)
[2024-07-20] MEDS ORDERED: SEMA1PEN2 SQ (14:12)
[2024-07-20 14:14] LABS: CPK CREATINE PHOSPHOKINASE 26 U/L (46-171); MB/CK RELATIVE INDEX 3.84 (< OR =4)
[2024-07-20] MEDS ORDERED: HOME MED LIST COMPLETE! XX SCH (14:15)
[2024-07-20] MEDS ORDERED: ACET650T3 PO (14:21)
[2024-07-20] MEDS ORDERED: ENUL10SO PO (14:21)
[2024-07-20] MEDS ORDERED: FIBE625T PO (14:21)
[2024-07-20] MEDS: IBUPROFEN 600MG TAB PO ONE (14:47)
[2024-07-20 15:51] LABS: LDH LACTATE DEHYDROGENASE 144 U/L (120-246)
[2024-07-20] MEDS ORDERED: AZELASTINE 137MCG NASAL SPY 30 ML (ASTELIN) PRN (16:25)
[2024-07-20] MEDS ORDERED: GLUCAGON INJ 1MG VIAL SC PRN (16:25)
[2024-07-20] MEDS ORDERED: GLUCOSE 4 GM CHEW PO PRN (16:25)
[2024-07-20] MEDS ORDERED: DEXTROSE 50% 50ML SYRINGE IV PRN (16:25)
[2024-07-20] MEDS: LACTATED RINGER'S 1000 ML IV ONE (16:35)
[2024-07-20 16:38] LABS: HEMOGLOBIN A1c 9.1 % (4.0-6.0)
[2024-07-20 16:59] VITALS: BP 128/66; TEMP 101.9; O2SAT 92
[2024-07-20] MEDS: ACETAMINOPHEN *IV* 1,000 MG in IV 1 EA IV ONE (17:53)
[2024-07-20] MEDS: ROSUVASTATIN 10 MG TAB (CRESTOR) PO SCH (17:54)
[2024-07-20] MEDS: TAMSULOSIN 0.4 MG CAP PO SCH (17:54)
[2024-07-20] MEDS: INSULIN LISPRO (NovoLOG) PER UNIT SC SCH ×2 (17:54→20:43)
[2024-07-20] MEDS: LOSARTAN 50MG TABLET PO SCH (17:55)
[2024-07-20] MEDS: ARIPiprazole 15 MG TAB (AbiLIFY) PO SCH (18:44)
[2024-07-20] MEDS: BISOPROLOL FUM 2.5 MG PER 1/2TAB PO SCH (18:44)
[2024-07-20 18:46] VITALS: TEMP 101
[2024-07-20] MEDS: IPRATROPIUM 0.5MG/ALBUTEROL 2.5MG INH SOL UD 3ML (DUONEB) INH SCH (19:00)
[2024-07-20 19:26] VITALS: BP 105/53; TEMP 100.2; O2SAT 94
[2024-07-20 20:00] VITALS: BP 105/53; PULSE 98; O2SAT 94
[2024-07-20] MEDS: DOCUSATE SODIUM 100MG CAPSULE PO SCH (20:33)
[2024-07-20] MEDS: APIXABAN 5 MG TAB (ELIQUIS) PO SCH (20:33)
[2024-07-20] MEDS: traZODone 100 MG TAB PO SCH (20:34)
[2024-07-20] MEDS: PANTOPRAZOLE 40MG TAB (PROTONIX) PO SCH (20:34)
[2024-07-20] MEDS: MIRTAZAPINE 15 MG TAB PO SCH (20:34)
[2024-07-20] MEDS: DOXEPIN 25 MG CAP PO SCH (20:34)
[2024-07-20] MEDS: MECLIZINE 12.5 MG TAB PO SCH (20:34)
[2024-07-20] MEDS: GABAPENTIN 400MG CAP PO SCH (20:34)
[2024-07-20] MEDS ORDERED: hydrOXYzine 50 MG TAB PO SCH (21:00)
[2024-07-20] MEDS ORDERED: QUEtiapine FUMARATE 100 MG TAB PO SCH (21:00)
[2024-07-20 23:10] VITALS: BP 98/56; TEMP 98.7; O2SAT 100
[2024-07-21 03:06] VITALS: BP 123/63; TEMP 100.3; O2SAT 99
[2024-07-21 03:15] LABS: KETONE, URINE AUTO RFX TRACE mg/dL (NEGATIVE); LEUKOCYTE ESTERASE UR AUTO RFX NEGATIVE (NEGATIVE); NITRITE, URINE AUTO RFX NEGATIVE (NEGATIVE); RBC, URINE AUTO RFX 1 /HPF (0-3); SQUAM EPITHELIAL CELL UR AURFX 0 /HPF (0-6); WBC, URINE AUTO RFX 1 /HPF (0-3)
[2024-07-21] MEDS: LevoFLOXacin 750 MG TABLET PO SCH (05:22)
[2024-07-21 06:23] LABS: HEMATOCRIT 30.3 % (42.0-52.0); HEMOGLOBIN 10.1 g/dl (13.5-17.5); MEAN CORPUSCULAR HEMOGLOBIN 29.3 pg (27.0-33.0); MEAN CORPUSCULAR HGB CONC 33.3 g/dl (32.0-36.5); MEAN CORPUSCULAR VOLUME 87.8 fl (80.0-96.0); PLATELET COUNT, AUTOMATED 249 10^3/uL (150-450); RED BLOOD COUNT 3.45 10^6/uL (4.30-6.10)
[2024-07-21 06:43] LABS: BLOOD UREA NITROGEN 15 MG/DL (9-23); CALCIUM LEVEL 8.1 MG/DL (8.3-10.6); CARBON DIOXIDE LEVEL 26 MMOL/L (20-31); CHLORIDE LEVEL 103 MMOL/L (98-107); CREATININE FOR GFR 0.84 MG/DL (0.70-1.30); GLOMERULAR FILTRATION RATE > 60.0 (>49); GLUCOSE, FASTING 229 MG/DL (74-106); MAGNESIUM LEVEL 1.2 MG/DL (1.8-2.4); POTASSIUM SERUM 3.8 MMOL/L (3.5-5.1); SODIUM LEVEL 140 MMOL/L (136-145)
[2024-07-21 07:37] VITALS: BP 137/72; TEMP 101.1; O2SAT 94
[2024-07-21] MEDS: MAG SULF 1GM/100ML (MAG RUN) 1 GM in IV 1 EA IV SCH (08:40)
[2024-07-21] MEDS: GABAPENTIN 400MG CAP PO SCH (08:42)
[2024-07-21] MEDS: MAGNESIUM OXIDE 400MG TAB (MAG-OX) PO ONE (08:44)
[2024-07-21] MEDS: ACETAMINOPHEN 325 MG TAB PO PRN (08:44)
[2024-07-21 11:04] LABS: LDH LACTATE DEHYDROGENASE 159 U/L (120-246)
[2024-07-21 12:26] LABS: PH BODY FLUID 7.437 UNITS (NOT ESTABLISHED); SOURCE, BODY FLUID pH PLEURAL
[2024-07-21 12:40] LABS: APPEARANCE, BODY FLUID TURBID (CLEAR); PLEURAL FL COLOR YELLOW (COLORLESS); SOURCE, BODY FLUID PLEURAL
[2024-07-21 12:46] LABS: SOURCE, BODY FLUID ALBUMIN PLEURAL
[2024-07-21 12:47] VITALS: BP 129/62; TEMP 100.9; O2SAT 94
[2024-07-21 12:51] LABS: SOURCE, BODY FLUID GLUCOSE PLEURAL; SOURCE, BODY FLUID TRIG PLEURAL; TRIGLYCERIDE, BODY FLUID 49 MG/DL (NOT ESTABLISHED)
[2024-07-21 12:52] LABS: LDH, BODY FLUID 256 U/L (NOT ESTABLISHED); SOURCE, BODY FLUID LDH PLEURAL
[2024-07-21 12:53] LABS: AMYLASE, BODY FLUID < 20 U/L (NOT ESTABLISHED); CHOLESTEROL, BODY FLUID 53 MG/DL (NOT ESTABLISHED); SOURCE, BODY FLUID AMYLASE PLEURAL; SOURCE, BODY FLUID CHOL PLEURAL
[2024-07-21] MEDS: MIRALAX *UNIT DOSE* 17GM PACKET PO SCH (13:12)
[2024-07-21] MEDS: CYCLOBENZAPRINE 5MG TABLET PO SCH (15:52)
[2024-07-21] MEDS: LIDOCAINE 5% (LIDODERM) PATCH TD SCH (15:53)
[2024-07-21 16:00] VITALS: BP 125/70; TEMP 101.6; O2SAT 96
[2024-07-21 16:17] LABS: SOURCE, BODY FLUID TOT PROTEIN PLEURAL; TOTAL PROTEIN, BODY FLUID 3.1 G/DL (NOT ESTABLISHED)
[2024-07-21] MEDS: ONDANSETRON 4MG 2ML VIAL IV PRN (18:49)
[2024-07-21 19:07] VITALS: TEMP 100.6
[2024-07-21 20:30] VITALS: BP 125/58; TEMP 100.2; O2SAT 95
[2024-07-21] MEDS: QUEtiapine FUMARATE 100 MG TAB PO SCH (20:38)
[2024-07-21] MEDS: hydrOXYzine 50 MG TAB PO SCH (20:39)
[2024-07-22] VITALS (8 sets, daily range): BP systolic 104–128; BP diastolic 51–70; TEMP 99.6–102.7; O2SAT 90–96
[2024-07-22] MEDS ORDERED: metroNIDAZOLE 500 MG in IV 1 EA IV SCH (07:15)
[2024-07-22 07:42] LABS: BASO % 0.3 % (0.0-1.0); EOS # 0.3 10^3/uL (0.0-0.5); EOS % 2.1 % (0.0-3.0); HEMATOCRIT 29.6 % (42.0-52.0); HEMOGLOBIN 9.9 g/dl (13.5-17.5); LYMPH # 0.8 10^3/uL (1.5-5.0); MEAN CORPUSCULAR HEMOGLOBIN 29.2 pg (27.0-33.0); MEAN CORPUSCULAR HGB CONC 33.4 g/dl (32.0-36.5); MEAN CORPUSCULAR VOLUME 87.3 fl (80.0-96.0); MONO # 1.2 10^3/uL (0.0-0.8); MONO % 9.8 % (2.0-8.0); NEUTROPHILS # 10.1 10^3/uL (1.5-8.5); NEUTROPHILS % 81.3 % (36.0-66.0); PLATELET COUNT, AUTOMATED 265 10^3/uL (150-450); RED BLOOD COUNT 3.39 10^6/uL (4.30-6.10); WHITE BLOOD COUNT 12.4 10^3/uL (4.0-10.0)
[2024-07-22 08:13] LABS: ERYTHROCYTE SEDIMENTATION RATE 71 mm/hr (0-20)
[2024-07-22 08:15] LABS: BLOOD UREA NITROGEN 16 MG/DL (9-23); CALCIUM LEVEL 8.4 MG/DL (8.3-10.6); CARBON DIOXIDE LEVEL 26 MMOL/L (20-31); CHLORIDE LEVEL 105 MMOL/L (98-107); GLOMERULAR FILTRATION RATE > 60.0 (>49); GLUCOSE, FASTING 247 MG/DL (74-106); MAGNESIUM LEVEL 1.6 MG/DL (1.8-2.4); POTASSIUM SERUM 3.9 MMOL/L (3.5-5.1); SODIUM LEVEL 138 MMOL/L (136-145)
[2024-07-22 08:57] LABS: C REACTIVE PROTEIN QUANTITATIV 28.23 MG/DL (<1.0)
[2024-07-22] MEDS: metroNIDAZOLE (FLAGYL) 500MG TABLET PO SCH (09:10)
[2024-07-22] MEDS: SENOKOT S TAB PO SCH (11:12)
[2024-07-22] MEDS: LEVEMIR (INSULIN DETEMIR) 1 UNITS/0.01ML SC ONE (11:13)
[2024-07-22] MEDS: MAG SULF 1GM/100ML (MAG RUN) 1 GM in IV 1 EA IV SCH (11:14)
[2024-07-22] MEDS: IBUPROFEN 800 MG TAB PO ONE (18:29)
[2024-07-23 03:20] VITALS: BP 117/62; TEMP 97.2; O2SAT 95
[2024-07-23 05:19] LABS: HEMATOCRIT 30.1 % (42.0-52.0); HEMOGLOBIN 9.8 g/dl (13.5-17.5); MEAN CORPUSCULAR HEMOGLOBIN 28.4 pg (27.0-33.0); MEAN CORPUSCULAR HGB CONC 32.6 g/dl (32.0-36.5); MEAN CORPUSCULAR VOLUME 87.2 fl (80.0-96.0); PLATELET COUNT, AUTOMATED 287 10^3/uL (150-450); RED BLOOD COUNT 3.45 10^6/uL (4.30-6.10); WHITE BLOOD COUNT 11.7 10^3/uL (4.0-10.0)
[2024-07-23 05:49] LABS: BLOOD UREA NITROGEN 20 MG/DL (9-23); CALCIUM LEVEL 8.4 MG/DL (8.3-10.6); CARBON DIOXIDE LEVEL 28 MMOL/L (20-31); CHLORIDE LEVEL 103 MMOL/L (98-107); CREATININE FOR GFR 0.92 MG/DL (0.70-1.30); GLOMERULAR FILTRATION RATE > 60.0 (>49); GLUCOSE, FASTING 257 MG/DL (74-106); MAGNESIUM LEVEL 1.9 MG/DL (1.8-2.4); POTASSIUM SERUM 4.3 MMOL/L (3.5-5.1); SODIUM LEVEL 136 MMOL/L (136-145)
[2024-07-23 08:23] VITALS: BP 129/70; TEMP 99.2; O2SAT 92
[2024-07-23 08:53] LABS: PROCALCITONIN 0.56 ng/ml
[2024-07-23 08:56] LABS: C REACTIVE PROTEIN QUANTITATIV 26.24 MG/DL (<1.0)
[2024-07-23] MEDS ORDERED: LEVEMIR (INSULIN DETEMIR) 1 UNITS/0.01ML SC SCH (09:00)
[2024-07-23] MEDS: CEFEPIME HCL 1 GM in DEXTROSE 5% (D5W) ADV/MINI-BAG 50 ML IV SCH (10:00)
[2024-07-23] MEDS ORDERED: LEVEMIR (INSULIN DETEMIR) 1 UNITS/0.01ML SC ONE (10:10)
[2024-07-23] MEDS: MOM 30ML SUSPENSION UDC PO SCH (13:30)
[2024-07-23] MEDS: LEVEMIR (INSULIN DETEMIR) 1 UNITS/0.01ML SC ONE (13:31)
[2024-07-23 13:51] VITALS: BP 141/67; TEMP 100.2; O2SAT 96
[2024-07-23 15:18] VITALS: BP 127/70; TEMP 100.1; O2SAT 93
[2024-07-23 20:04] VITALS: BP 139/70; TEMP 100.1; O2SAT 93
[2024-07-23 23:25] VITALS: BP 115/59; TEMP 100.3; O2SAT 93
[2024-07-24] VITALS (7 sets, daily range): BP systolic 84–140; BP diastolic 48–76; TEMP 98.8–99.4; O2SAT 93–96
[2024-07-24 06:10] LABS: HEMATOCRIT 31.4 % (42.0-52.0); HEMOGLOBIN 10.5 g/dl (13.5-17.5); MEAN CORPUSCULAR HGB CONC 33.4 g/dl (32.0-36.5); MEAN CORPUSCULAR VOLUME 86.7 fl (80.0-96.0); PLATELET COUNT, AUTOMATED 369 10^3/uL (150-450); RED BLOOD COUNT 3.62 10^6/uL (4.30-6.10); WHITE BLOOD COUNT 12.6 10^3/uL (4.0-10.0)
[2024-07-24 06:42] LABS: BLOOD UREA NITROGEN 17 MG/DL (9-23); CALCIUM LEVEL 8.7 MG/DL (8.3-10.6); CARBON DIOXIDE LEVEL 29 MMOL/L (20-31); CHLORIDE LEVEL 101 MMOL/L (98-107); CREATININE FOR GFR 0.87 MG/DL (0.70-1.30); GLOMERULAR FILTRATION RATE > 60.0 (>49); GLUCOSE, FASTING 160 MG/DL (74-106); MAGNESIUM LEVEL 1.9 MG/DL (1.8-2.4); POTASSIUM SERUM 4.6 MMOL/L (3.5-5.1); SODIUM LEVEL 137 MMOL/L (136-145)
[2024-07-24] MEDS ORDERED: LEVEMIR (INSULIN DETEMIR) 1 UNITS/0.01ML SC SCH (09:00)
[2024-07-24] MEDS: LEVEMIR (INSULIN DETEMIR) 1 UNITS/0.01ML SC SCH (09:11)
[2024-07-24] MEDS: BISACODYL 10MG SUPP PR ONE (09:40)
[2024-07-24] MEDS: LevoFLOXacin 750 MG TABLET PO SCH (09:40)
[2024-07-24 14:48] LABS: URINE STREP PNEUMONIAE ANTIGEN NOT DETECTED (NOT DETECT)
[2024-07-24] MEDS: RAMELTEON 8 MG TAB (ROZEREM) PO ONE (22:18)
[2024-07-25 04:00] VITALS: BP 99/59; TEMP 98.2; O2SAT 96
[2024-07-25 06:08] LABS: HEMATOCRIT 32.4 % (42.0-52.0); HEMOGLOBIN 10.7 g/dl (13.5-17.5); MEAN CORPUSCULAR HEMOGLOBIN 28.6 pg (27.0-33.0); MEAN CORPUSCULAR VOLUME 86.6 fl (80.0-96.0); PLATELET COUNT, AUTOMATED 426 10^3/uL (150-450); RED BLOOD COUNT 3.74 10^6/uL (4.30-6.10); WHITE BLOOD COUNT 10.2 10^3/uL (4.0-10.0)
[2024-07-25 06:29] LABS: BLOOD UREA NITROGEN 20 MG/DL (9-23); CALCIUM LEVEL 8.5 MG/DL (8.3-10.6); CARBON DIOXIDE LEVEL 28 MMOL/L (20-31); CHLORIDE LEVEL 97 MMOL/L (98-107); CREATININE FOR GFR 0.86 MG/DL (0.70-1.30); GLOMERULAR FILTRATION RATE > 60.0 (>49); GLUCOSE, FASTING 187 MG/DL (74-106); MAGNESIUM LEVEL 1.9 MG/DL (1.8-2.4); POTASSIUM SERUM 4.9 MMOL/L (3.5-5.1); SODIUM LEVEL 134 MMOL/L (136-145)
[2024-07-25 08:22] VITALS: BP 130/70; TEMP 97.9
[2024-07-25 12:00] VITALS: BP 98/69; TEMP 99.1; O2SAT 92
[2024-07-25 21:11] VITALS: BP 100/68; TEMP 98.7; TEMP 99; O2SAT 97
[2024-07-26 02:18] VITALS: BP 110/63; TEMP 98.9; O2SAT 96
[2024-07-26] MEDS ORDERED: CEPACOL LOZENGE PO PRN (02:20)
[2024-07-26] MEDS: NITROGLYCERIN 0.4MG SUBL TABLET SL STA (02:46)
[2024-07-26] MEDS: KETOROLAC 30 MG/ML 1ML VIAL IV ONE (02:50)
[2024-07-26] MEDS: CALCIUM CARBONATE 500 MG CHEW U/D PO ONE (03:18)
[2024-07-26 03:26] VITALS: BP 106/63; TEMP 98.5; O2SAT 96
[2024-07-26 03:58] LABS: CK-MB VALUE MASS < 1.0 NG/ML (<3.6)
[2024-07-26 04:00] LABS: CPK CREATINE PHOSPHOKINASE 16 U/L (46-171); MB/CK RELATIVE INDEX 6.25 (< OR =4)
[2024-07-26 06:11] LABS: HEMATOCRIT 31.6 % (42.0-52.0); HEMOGLOBIN 10.7 g/dl (13.5-17.5); MEAN CORPUSCULAR HEMOGLOBIN 29.2 pg (27.0-33.0); MEAN CORPUSCULAR HGB CONC 33.9 g/dl (32.0-36.5); MEAN CORPUSCULAR VOLUME 86.3 fl (80.0-96.0); PLATELET COUNT, AUTOMATED 446 10^3/uL (150-450); RED BLOOD COUNT 3.66 10^6/uL (4.30-6.10); WHITE BLOOD COUNT 8.5 10^3/uL (4.0-10.0)
[2024-07-26 06:34] LABS: BLOOD UREA NITROGEN 23 MG/DL (9-23); CALCIUM LEVEL 8.5 MG/DL (8.3-10.6); CARBON DIOXIDE LEVEL 29 MMOL/L (20-31); CHLORIDE LEVEL 100 MMOL/L (98-107); GLOMERULAR FILTRATION RATE > 60.0 (>49); GLUCOSE, FASTING 259 MG/DL (74-106); MAGNESIUM LEVEL 2.2 MG/DL (1.8-2.4); POTASSIUM SERUM 4.9 MMOL/L (3.5-5.1); SODIUM LEVEL 134 MMOL/L (136-145)
[2024-07-26 08:48] VITALS: BP 138/77
[2024-07-26] MEDS ORDERED: METR-265 PO (11:12)
[2024-07-26] MEDS ORDERED: LEVO75TAB PO (11:12)
[2024-07-26] MEDS ORDERED: MIRA33506 PO (11:12)
[2024-07-26] MEDS ORDERED: LIDO5TD TD (11:12)
[2024-07-26 11:35] VITALS: BP 104/65; TEMP 97.9; O2SAT 95
[2024-07-26 18:43] LABS: MYCOPLASMA PNEUMONIAE IGG <= 0.90 (<=0.90)
[2025-07-23] MEDS ORDERED: LEVEMIR (INSULIN DETEMIR) 1 UNITS/0.01ML SC SCH (09:00)
== END 2024-07-26 15:47 | disposition home or self-care (01) | DRG 871 ==
LOC: M ED 11:11 → EDBD 11:11 → M ED INP 15:29 → M PCU 16:57 → M MSPAV 07-24 21:21
PROVIDERS: ADMIT Student in an Organized Health Care Education/Training Program; ATTEND Student in an Organized Health Care Education/Training Program
PROC: 0W993ZZ Drainage of Right Pleural Cavity, Percutaneous Approach (ICD-10-PCS; 2024-07-21)
PROC: B246ZZZ Ultrasonography of Right and Left Heart (ICD-10-PCS; principal; 2024-07-23)
DX: A41.9 Sepsis, unspecified organism (principal); J18.9 Pneumonia, unspecified organism; J91.8 Pleural effusion in other conditions classified elsewhere; E11.42 Type 2 diabetes mellitus with diabetic polyneuropathy; M06.9 Rheumatoid arthritis, unspecified; K21.9 Gastro-esophageal reflux disease without esophagitis; L40.9 Psoriasis, unspecified; I73.00 Raynaud's syndrome without gangrene; R32 Unspecified urinary incontinence; K59.09 Other constipation; E78.5 Hyperlipidemia, unspecified; I10 Essential (primary) hypertension; M48.02 Spinal stenosis, cervical region; F41.9 Anxiety disorder, unspecified; M47.812 Spondylosis without myelopathy or radiculopathy, cervical region; R07.89 Other chest pain; E11.43 Type 2 diabetes mellitus with diabetic autonomic (poly)neuropathy; F32.A Depression, unspecified; G47.00 Insomnia, unspecified; M54.9 Dorsalgia, unspecified; G89.29 Other chronic pain; K31.84 Gastroparesis; E11.65 Type 2 diabetes mellitus with hyperglycemia; N40.1 Benign prostatic hyperplasia with lower urinary tract symptoms; Z86.718 Personal history of other venous thrombosis and embolism; Z79.01 Long term (current) use of anticoagulants; Z79.4 Long term (current) use of insulin; Z98.1 Arthrodesis status; Z96.642 Presence of left artificial hip joint; Z87.442 Personal history of urinary calculi; Z79.899 Other long term (current) drug therapy; Z88.0 Allergy status to penicillin; Z88.1 Allergy status to other antibiotic agents; Z88.2 Allergy status to sulfonamides; Z88.5 Allergy status to narcotic agent; Z88.8 Allergy status to other drugs, medicaments and biological substances; Z86.711 Personal history of pulmonary embolism

== ENCOUNTER 2024-07-29 10:55 | Observation (INO) | payer MEDICARE, MEDICAID ==
[~2024-07-29] VITALS: Ht 175.3 cm; Wt 75.5 kg
[~2024-07-29 10:55] MED LIST changes: +ACET650T3 PO; -AZEL1SPR3; +AZEL1SPR3 NARES; +ENUL10SO PO; +FIBE625T PO; +LEVO75TAB PO; +LIDO5TD TD; +MIRA33506 PO; +SEMA1PEN2 SQ
[2024-07-29 12:10] LABS: VENOUS BASE EXCESS 1.2 (-2.0-2.0); VENOUS HCO3 27.3 MMOL/L (23.0-27.0); VENOUS O2 SATURATION 66.8 % (60.0-80.0); VENOUS PARTIAL PRESSURE CO2 49.5 mmHg (38.0-50.0); VENOUS PARTIAL PRESSURE O2 37.1 mmHg (30.0-50.0); VENOUS STANDARD HCO3 24.9 MMOL/L; VENOUS TOTAL CO2 28.9 MMOL/L (24.0-28.0)
[2024-07-29 12:21] LABS: BASO # 0.1 10^3/uL (0.0-0.2); BASO % 0.7 % (0.0-1.0); EOS # 0.1 10^3/uL (0.0-0.5); EOS % 0.8 % (0.0-3.0); HEMATOCRIT 36.3 % (42.0-52.0); HEMOGLOBIN 12.1 g/dl (13.5-17.5); LYMPH # 0.8 10^3/uL (1.5-5.0); LYMPH % 9.6 % (24.0-44.0); MEAN CORPUSCULAR HEMOGLOBIN 28.3 pg (27.0-33.0); MEAN CORPUSCULAR HGB CONC 33.3 g/dl (32.0-36.5); MONO # 0.6 10^3/uL (0.0-0.8); MONO % 7.1 % (2.0-8.0); NEUTROPHILS # 6.6 10^3/uL (1.5-8.5); NEUTROPHILS % 80.1 % (36.0-66.0); PLATELET COUNT, AUTOMATED 559 10^3/uL (150-450); RED BLOOD COUNT 4.27 10^6/uL (4.30-6.10); WHITE BLOOD COUNT 8.3 10^3/uL (4.0-10.0)
[2024-07-29] MEDS: NS (Normal Saline) 0.9% 1,000 ML IV ONE (12:29)
[2024-07-29 12:45] LABS: LIPASE 31 U/L (12-53)
[2024-07-29 12:47] LABS: ACETONE/KETONE 0.06 MMOL/L (0.02-0.27)
[2024-07-29 12:50] LABS: PROTEIN, URINE MANUAL REFLEX NEGATIVE (NEGATIVE)
[2024-07-29 12:50] LABS: OSMOLALITY SERUM 297 MOSM/KG (280-301)
[2024-07-29 12:51] LABS: ALBUMIN 2.9 G/DL (3.2-5.2); ALKALINE PHOSPHATASE 139 U/L (40-129); ALT/SGPT 36 U/L (7.0-40); AST/SGOT 24 U/L (<34); BILIRUBIN,DIRECT 0.2 MG/DL (<0.4); BILIRUBIN,TOTAL 0.4 MG/DL (0.3-1.2); BLOOD UREA NITROGEN 23 MG/DL (9-23); CALCIUM LEVEL 8.9 MG/DL (8.3-10.6); CARBON DIOXIDE LEVEL 28 MMOL/L (20-31); CHLORIDE LEVEL 93 MMOL/L (98-107); CREATININE FOR GFR 0.92 MG/DL (0.70-1.30); GLOMERULAR FILTRATION RATE > 60.0 (>49); GLUCOSE, FASTING 421 MG/DL (74-106); POTASSIUM SERUM 5.6 MMOL/L (3.5-5.1); SODIUM LEVEL 131 MMOL/L (136-145); TOTAL PROTEIN 7.2 G/DL (5.7-8.2)
[2024-07-29 12:51] LABS: KETONE, URINE MANUAL REFLEX NEGATIVE (NEGATIVE); NITRITE, URINE MANUAL RFX NEGATIVE (NEGATIVE); UROBILINOGEN, UA MANUAL REFLEX NORMAL (NORMAL)
[2024-07-29 12:56] LABS: HEMOGLOBIN A1c 9.4 % (4.0-6.0)
[2024-07-29 13:04] LABS: HYALINE CAST, URINE RFX NONE SEEN /lpf (0-1); MICROSCOPIC EXAM RFX PERFORMED; RBC, URINE MAN REFLEX NONE SEEN /hpf (0-3); SQUAMOUS EPITHELIAL URINE RFX SMALL AMOUNT /hpf (SMALL AMT); WBC, URINE MAN RFX NONE SEEN /hpf (0-3)
[2024-07-29] MEDS: ACETAMINOPHEN 325 MG TAB PO ONE (13:19)
[2024-07-29] MEDS: HumuLIN R (REGULAR) INSULIN (NovoLIN R) **100U/ML** PER UNIT IV ONE (14:18)
[2024-07-29] MEDS ORDERED: LEVO1TAB40 PO (14:30)
[2024-07-29] MEDS ORDERED: POLY17PO18 PO (14:30)
[2024-07-29] MEDS ORDERED: METR-265 PO (14:30)
[2024-07-29] MEDS ORDERED: LIDO5DIS41 TD (14:30)
[2024-07-29] MEDS ORDERED: HOME MED LIST COMPLETE! XX SCH (14:35)
[2024-07-29] MEDS ORDERED: DEXTROSE 50% 50ML SYRINGE IV PRN (14:50)
[2024-07-29] MEDS ORDERED: GLUCOSE 4 GM CHEW PO PRN (14:50)
[2024-07-29] MEDS ORDERED: GLUCAGON INJ 1MG VIAL SC PRN (14:50)
[2024-07-29] MEDS ORDERED: ONDANSETRON 4MG ORAL DISINTEGRATING TAB PO PRN (15:00)
[2024-07-29] MEDS ORDERED: MECLIZINE 12.5 MG TAB PO PRN (15:00)
[2024-07-29] MEDS: PATIROMER SORBITEX CALCIUM 8.4 GM POWDER PACKET (VELTASSA) PO ONE (15:16)
[2024-07-29] MEDS: FUROSEMIDE 40MG/4ML VIAL IV ONE (15:16)
[2024-07-29 16:13] LABS: C REACTIVE PROTEIN QUANTITATIV 2.11 MG/DL (<1.0)
[2024-07-29 16:20] LABS: PROCALCITONIN 0.21 ng/ml
[2024-07-29] MEDS: BISACODYL 10MG SUPP PR ONE (16:28)
[2024-07-29 18:09] VITALS: BP 146/82; TEMP 98.1; O2SAT 97
[2024-07-29] MEDS: INSULIN LISPRO (NovoLOG) PER UNIT SC SCH ×3 (18:09→20:06)
[2024-07-29 19:38] VITALS: BP 126/66; TEMP 98.5; O2SAT 99
[2024-07-29] MEDS: PANTOPRAZOLE 40MG TAB (PROTONIX) PO SCH (20:05)
[2024-07-29] MEDS: FAMOTIDINE 20 MG TAB PO SCH (20:05)
[2024-07-29] MEDS: GABAPENTIN 400MG CAP PO SCH (20:05)
[2024-07-29] MEDS: traZODone 50 MG TAB PO SCH (20:05)
[2024-07-29] MEDS: MIRTAZAPINE 15 MG TAB PO SCH (20:06)
[2024-07-29] MEDS: APIXABAN 5 MG TAB (ELIQUIS) PO SCH (20:06)
[2024-07-29] MEDS: hydrOXYzine 50 MG TAB PO SCH (20:06)
[2024-07-29] MEDS: SENOKOT S TAB PO SCH (20:06)
[2024-07-29] MEDS: LEVEMIR (INSULIN DETEMIR) 1 UNITS/0.01ML SC SCH (20:09)
[2024-07-29] MEDS: QUEtiapine FUMARATE 100 MG TAB PO SCH (20:09)
[2024-07-29] MEDS: DOXEPIN 25 MG CAP PO SCH (20:10)
[2024-07-29] MEDS: LIDOCAINE 5% (LIDODERM) PATCH TD SCH (20:13)
[2024-07-29] MEDS: IPRATROPIUM 0.5MG/ALBUTEROL 2.5MG INH SOL UD 3ML (DUONEB) NEB SCH (21:04)
[2024-07-30 03:17] VITALS: BP 142/74; TEMP 98.3; O2SAT 97
[2024-07-30] MEDS: LevoFLOXacin 750 MG TABLET PO SCH (06:15)
[2024-07-30 07:20] LABS: HEMATOCRIT 34.7 % (42.0-52.0); HEMOGLOBIN 11.6 g/dl (13.5-17.5); MEAN CORPUSCULAR HEMOGLOBIN 28.6 pg (27.0-33.0); MEAN CORPUSCULAR HGB CONC 33.4 g/dl (32.0-36.5); MEAN CORPUSCULAR VOLUME 85.7 fl (80.0-96.0); PLATELET COUNT, AUTOMATED 516 10^3/uL (150-450); RED BLOOD COUNT 4.05 10^6/uL (4.30-6.10); WHITE BLOOD COUNT 8.7 10^3/uL (4.0-10.0)
[2024-07-30 07:45] LABS: BLOOD UREA NITROGEN 20 MG/DL (9-23); CALCIUM LEVEL 9.2 MG/DL (8.3-10.6); CARBON DIOXIDE LEVEL 27 MMOL/L (20-31); CHLORIDE LEVEL 100 MMOL/L (98-107); CREATININE FOR GFR 0.87 MG/DL (0.70-1.30); GLOMERULAR FILTRATION RATE > 60.0 (>49); GLUCOSE, FASTING 86 MG/DL (74-106); POTASSIUM SERUM 4.1 MMOL/L (3.5-5.1); SODIUM LEVEL 135 MMOL/L (136-145)
[2024-07-30] MEDS: MIRALAX *UNIT DOSE* 17GM PACKET PO SCH (08:58)
[2024-07-30] MEDS: TAMSULOSIN 0.4 MG CAP PO SCH (08:59)
[2024-07-30] MEDS: FERROUS SULFATE 325MG TAB PO SCH (09:00)
[2024-07-30] MEDS: ARIPiprazole 15 MG TAB (AbiLIFY) PO SCH (09:01)
[2024-07-30] MEDS: FUROSEMIDE 20 MG TAB PO SCH (09:01)
[2024-07-30] MEDS: ROSUVASTATIN 10 MG TAB (CRESTOR) PO SCH (09:01)
[2024-07-30] MEDS: BISOPROLOL FUM 2.5 MG PER 1/2TAB PO SCH (09:04)
[2024-07-30] MEDS: ACETAMINOPHEN 650MG ER TAB (TYLENOL ARTHRITIS) PO PRN (09:05)
[2024-07-30] MEDS ORDERED: VARIBAR NECTAR 40% w/v 240ML SUSP BTL As Ordered ONE (11:18)
[2024-07-30] MEDS ORDERED: VARIBAR PUDDING 40% w/v 230ML TUBE As Ordered ONE (11:18)
[2024-07-30] MEDS ORDERED: E-Z-PAQUE 96% w/w SUSP 176GM BTL As Ordered ONE (11:19)
[2024-07-30] MEDS ORDERED: BARIUM SULFATE 700 MG TABLET (E-Z-DISK) As Ordered ONE (11:19)
[2024-07-30 12:00] VITALS: BP 139/69; TEMP 97.2
[2024-07-30] MEDS: LEVEMIR (INSULIN DETEMIR) 1 UNITS/0.01ML SC ONE (13:03)
[2024-07-30] MEDS: INSULIN LISPRO (NovoLOG) PER UNIT SC SCH (13:04)
[2024-07-30 15:35] VITALS: BP 127/72; TEMP 97.7; O2SAT 99
[2024-07-30] MEDS: LEVEMIR (INSULIN DETEMIR) 1 UNITS/0.01ML SC SCH (20:38)
[2024-07-30 21:29] VITALS: BP 129/80; TEMP 98.2; O2SAT 99
[2024-07-31 05:04] VITALS: BP 128/80; TEMP 98.1; O2SAT 96
[2024-07-31 06:40] LABS: BASO # 0.1 10^3/uL (0.0-0.2); BASO % 1.2 % (0.0-1.0); EOS # 0.1 10^3/uL (0.0-0.5); EOS % 2.2 % (0.0-3.0); HEMATOCRIT 32.3 % (42.0-52.0); HEMOGLOBIN 10.8 g/dl (13.5-17.5); LYMPH # 1.2 10^3/uL (1.5-5.0); LYMPH % 21.1 % (24.0-44.0); MEAN CORPUSCULAR HEMOGLOBIN 28.6 pg (27.0-33.0); MEAN CORPUSCULAR HGB CONC 33.4 g/dl (32.0-36.5); MEAN CORPUSCULAR VOLUME 85.4 fl (80.0-96.0); MONO # 0.7 10^3/uL (0.0-0.8); NEUTROPHILS # 3.6 10^3/uL (1.5-8.5); NEUTROPHILS % 62.5 % (36.0-66.0); PLATELET COUNT, AUTOMATED 534 10^3/uL (150-450); RED BLOOD COUNT 3.78 10^6/uL (4.30-6.10); WHITE BLOOD COUNT 5.8 10^3/uL (4.0-10.0)
[2024-07-31 07:00] LABS: BLOOD UREA NITROGEN 21 MG/DL (9-23); CARBON DIOXIDE LEVEL 28 MMOL/L (20-31); CHLORIDE LEVEL 99 MMOL/L (98-107); CREATININE FOR GFR 0.83 MG/DL (0.70-1.30); GLOMERULAR FILTRATION RATE > 60.0 (>49); GLUCOSE, FASTING 279 MG/DL (74-106); POTASSIUM SERUM 4.6 MMOL/L (3.5-5.1); SODIUM LEVEL 136 MMOL/L (136-145)
[2024-07-31] MEDS: LEVEMIR (INSULIN DETEMIR) 1 UNITS/0.01ML SC SCH ×2 (09:27→20:27)
[2024-07-31] MEDS: LEVEMIR (INSULIN DETEMIR) 1 UNITS/0.01ML SC STA (11:39)
[2024-07-31 12:00] VITALS: BP 148/81; TEMP 98.1; O2SAT 97
[2024-07-31] MEDS: HumuLIN R (REGULAR) INSULIN (NovoLIN R) **100U/ML** PER UNIT IV STA (13:22)
[2024-07-31] MEDS: INSULIN LISPRO (NovoLOG) PER UNIT SC SCH (17:34)
[2024-07-31 18:51] VITALS: BP 144/83; TEMP 97.5; O2SAT 96
[2024-07-31] MEDS: hydrOXYzine 50 MG TAB PO PRN (20:36)
[2024-07-31 21:17] VITALS: BP 130/76; TEMP 97.9; O2SAT 99
[2024-08-01 04:00] VITALS: BP 124/67; TEMP 98.8; O2SAT 97
[2024-08-01 08:29] VITALS: BP 130/91
[2024-08-01] MEDS ORDERED: METF500T13 PO (10:33)
[2024-08-01] MEDS ORDERED: LANTINJ4 INJ (10:33)
[2024-08-01] MEDS ORDERED: TRAZ-186 PO (10:33)
[2024-08-01] MEDS ORDERED: PEN-308 SC (10:33)
[2024-08-01] MEDS ORDERED: MECL-136 PO (10:33)
[2024-08-01] MEDS ORDERED: SENN1TAB96 PO (12:02)
== END 2024-08-01 13:23 | disposition home health service (06) ==
LOC: M ED 10:55 → EDBD 10:55 → M ED INP 10:56 → M MS4PR 17:56 → M MSPAV 07-30 15:28
PROVIDERS: ADMIT Internal Medicine; ATTEND Internal Medicine
DX: R53.1 Weakness (principal); J18.9 Pneumonia, unspecified organism; J90 Pleural effusion, not elsewhere classified; E11.65 Type 2 diabetes mellitus with hyperglycemia; E87.1 Hypo-osmolality and hyponatremia; K59.00 Constipation, unspecified; E87.5 Hyperkalemia; F39 Unspecified mood [affective] disorder; D50.9 Iron deficiency anemia, unspecified; I10 Essential (primary) hypertension; M48.02 Spinal stenosis, cervical region; M48.07 Spinal stenosis, lumbosacral region; R42 Dizziness and giddiness; K21.9 Gastro-esophageal reflux disease without esophagitis; E78.5 Hyperlipidemia, unspecified; N40.0 Benign prostatic hyperplasia without lower urinary tract symptoms; Z86.718 Personal history of other venous thrombosis and embolism; Z86.711 Personal history of pulmonary embolism; M06.9 Rheumatoid arthritis, unspecified; E11.43 Type 2 diabetes mellitus with diabetic autonomic (poly)neuropathy; Z79.899 Other long term (current) drug therapy; Z79.01 Long term (current) use of anticoagulants; Z79.2 Long term (current) use of antibiotics; Z79.1 Long term (current) use of non-steroidal anti-inflammatories (NSAID); Z88.0 Allergy status to penicillin; Z88.1 Allergy status to other antibiotic agents; Z88.2 Allergy status to sulfonamides; Z88.5 Allergy status to narcotic agent; Z88.4 Allergy status to anesthetic agent
CPT/HCPCS: 36415; 71045; 74018; 74230; 80047; 80048; 80076; 81000; 81015; 82010; 82803; 83036; 83690; 83930; 84132; 84145; 85025; 85027; 86140; 87086; 87486; 87581; 87633; 87798; 92526; 92610; 92611; 93005; 93041; 94640; 94760; 96361; 96374; 96375; 96376; 97116; 97161; 97530; 99285; G0378; J1815; J1940

== ENCOUNTER 2024-08-03 02:44 | Observation (INO) | payer MEDICARE, MEDICAID ==
[~2024-08-03] VITALS: Ht 175.3 cm; Wt 77.1 kg
[~2024-08-03 02:44] MED LIST changes: +LEVO1TAB40 PO; +LIDO5DIS41 TD; +METF500T13 PO; +PEN-308 SC; +POLY17PO18 PO; +SENN1TAB96 PO; +TRAZ-186 PO
[2024-08-03 05:48] LABS: BASO # 0.1 10^3/uL (0.0-0.2); BASO % 1.2 % (0.0-1.0); EOS # 0.2 10^3/uL (0.0-0.5); EOS % 2.6 % (0.0-3.0); HEMATOCRIT 35.7 % (42.0-52.0); HEMOGLOBIN 11.6 g/dl (13.5-17.5); LYMPH # 1.3 10^3/uL (1.5-5.0); LYMPH % 21.4 % (24.0-44.0); MEAN CORPUSCULAR HEMOGLOBIN 28.3 pg (27.0-33.0); MEAN CORPUSCULAR HGB CONC 32.5 g/dl (32.0-36.5); MEAN CORPUSCULAR VOLUME 87.1 fl (80.0-96.0); MONO # 0.5 10^3/uL (0.0-0.8); MONO % 7.7 % (2.0-8.0); NEUTROPHILS # 3.9 10^3/uL (1.5-8.5); NEUTROPHILS % 66.6 % (36.0-66.0); PLATELET COUNT, AUTOMATED 574 10^3/uL (150-450); WHITE BLOOD COUNT 5.9 10^3/uL (4.0-10.0)
[2024-08-03 06:11] LABS: LIPASE 20 U/L (12-53)
[2024-08-03 06:14] LABS: ALBUMIN 3.4 G/DL (3.2-5.2); ALKALINE PHOSPHATASE 111 U/L (40-129); ALT/SGPT 31 U/L (7.0-40); AST/SGOT 31 U/L (<34); BILIRUBIN,TOTAL 0.4 MG/DL (0.3-1.2); BLOOD UREA NITROGEN 26 MG/DL (9-23); CALCIUM LEVEL 9.3 MG/DL (8.3-10.6); CARBON DIOXIDE LEVEL 29 MMOL/L (20-31); CHLORIDE LEVEL 101 MMOL/L (98-107); CREATININE FOR GFR 0.94 MG/DL (0.70-1.30); GLOMERULAR FILTRATION RATE > 60.0 (>49); GLUCOSE, FASTING 114 MG/DL (74-106); POTASSIUM SERUM 4.1 MMOL/L (3.5-5.1); SODIUM LEVEL 139 MMOL/L (136-145); TOTAL PROTEIN 7.8 G/DL (5.7-8.2)
[2024-08-03] MEDS: ONDANSETRON 4MG 2ML VIAL IV ONE (06:57)
[2024-08-03 09:37] LABS: PROCALCITONIN 0.21 ng/ml
[2024-08-03] MEDS ORDERED: METF500T13 PO (10:56)
[2024-08-03] MEDS ORDERED: COLA1TAB PO (10:56)
[2024-08-03] MEDS ORDERED: LANTINJ4 SC (10:56)
[2024-08-03] MEDS ORDERED: AMLO2.5T3 PO (10:59)
[2024-08-03] MEDS ORDERED: PREDOPD OU (10:59)
[2024-08-03] MEDS ORDERED: DEXTROSE 50% 50ML SYRINGE IV PRN (11:05)
[2024-08-03] MEDS ORDERED: GLUCAGON INJ 1MG VIAL SC PRN (11:05)
[2024-08-03] MEDS ORDERED: GLUCOSE 4 GM CHEW PO PRN (11:05)
[2024-08-03] MEDS ORDERED: HOME MED LIST COMPLETE! XX SCH (11:20)
[2024-08-03] MEDS: APIXABAN 5 MG TAB (ELIQUIS) PO SCH (13:25)
[2024-08-03] MEDS: INSULIN LISPRO (NovoLOG) PER UNIT SC SCH (13:26)
[2024-08-03] MEDS ORDERED: MECLIZINE 12.5 MG TAB PO PRN (15:55)
[2024-08-03] MEDS ORDERED: AZELASTINE 137MCG NASAL SPY 30 ML (ASTELIN) PRN (15:55)
[2024-08-03] MEDS ORDERED: hydrOXYzine 50 MG TAB PO PRN (15:55)
[2024-08-03 16:23] VITALS: BP 144/82; TEMP 97.7; O2SAT 99
[2024-08-03 20:00] VITALS: BP 138/80; TEMP 98.2; O2SAT 100
[2024-08-03] MEDS ORDERED: INSULIN LISPRO (NovoLOG) PER UNIT SC SCH (21:00)
[2024-08-03] MEDS: DOXEPIN 25 MG CAP PO SCH (21:06)
[2024-08-03] MEDS: ACETAMINOPHEN 325 MG TAB PO PRN (21:06)
[2024-08-03] MEDS: FAMOTIDINE 20 MG TAB PO SCH (21:07)
[2024-08-03] MEDS: traZODone 100 MG TAB PO SCH (21:07)
[2024-08-03] MEDS: QUEtiapine FUMARATE 100 MG TAB PO SCH (21:07)
[2024-08-03] MEDS: GABAPENTIN 400MG CAP PO SCH (21:07)
[2024-08-03] MEDS: MIRTAZAPINE 15 MG TAB PO SCH (21:07)
[2024-08-03] MEDS: PANTOPRAZOLE 40MG TAB (PROTONIX) PO SCH (21:07)
[2024-08-03] MEDS: prednisoLONE ACET 1% OPHTH SUSP 5ML OU SCH (21:08)
[2024-08-03] MEDS: ONDANSETRON 4MG 2ML VIAL IV PRN (21:08)
[2024-08-04 04:00] VITALS: BP 115/64; TEMP 97.1; O2SAT 95
[2024-08-04 06:21] LABS: HEMATOCRIT 32.1 % (42.0-52.0); HEMOGLOBIN 10.6 g/dl (13.5-17.5); MEAN CORPUSCULAR HEMOGLOBIN 28.9 pg (27.0-33.0); MEAN CORPUSCULAR VOLUME 87.5 fl (80.0-96.0); PLATELET COUNT, AUTOMATED 516 10^3/uL (150-450); RED BLOOD COUNT 3.67 10^6/uL (4.30-6.10); WHITE BLOOD COUNT 4.5 10^3/uL (4.0-10.0)
[2024-08-04 06:41] LABS: ALBUMIN 2.9 G/DL (3.2-5.2); ALKALINE PHOSPHATASE 89 U/L (40-129); ALT/SGPT 24 U/L (7.0-40); AST/SGOT 26 U/L (<34); BILIRUBIN,TOTAL 0.5 MG/DL (0.3-1.2); BLOOD UREA NITROGEN 18 MG/DL (9-23); CALCIUM LEVEL 8.9 MG/DL (8.3-10.6); CARBON DIOXIDE LEVEL 30 MMOL/L (20-31); CHLORIDE LEVEL 102 MMOL/L (98-107); CREATININE FOR GFR 0.83 MG/DL (0.70-1.30); GLOMERULAR FILTRATION RATE > 60.0 (>49); GLUCOSE, FASTING 111 MG/DL (74-106); POTASSIUM SERUM 4.4 MMOL/L (3.5-5.1); SODIUM LEVEL 138 MMOL/L (136-145); TOTAL PROTEIN 6.7 G/DL (5.7-8.2)
[2024-08-04] MEDS: FUROSEMIDE 20 MG TAB PO SCH (08:41)
[2024-08-04] MEDS: BISOPROLOL FUM 2.5 MG PER 1/2TAB PO SCH (08:44)
[2024-08-04] MEDS: TAMSULOSIN 0.4 MG CAP PO SCH (08:45)
[2024-08-04] MEDS: ROSUVASTATIN 10 MG TAB (CRESTOR) PO SCH (08:45)
[2024-08-04] MEDS: GABAPENTIN 400MG CAP PO SCH (08:45)
[2024-08-04] MEDS: FERROUS SULFATE 325MG TAB PO SCH (08:45)
[2024-08-04] MEDS ORDERED: ENOXAPARIN 40MG/0.4ML SYRINGE (J1650 PER 10MG) SC SCH (09:00)
[2024-08-04] MEDS: MIRALAX *UNIT DOSE* 17GM PACKET PO PRN (11:28)
[2024-08-04] MEDS: SENOKOT S TAB PO PRN (11:29)
[2024-08-04 12:25] VITALS: BP 111/56; TEMP 98.9; O2SAT 100
[2024-08-04 15:30] VITALS: BP 142/90; TEMP 98; O2SAT 100
[2024-08-04] MEDS: INSULIN LISPRO (NovoLOG) PER UNIT SC SCH ×2 (17:27→20:44)
[2024-08-04 20:22] VITALS: BP 123/71; TEMP 97.9; O2SAT 99
[2024-08-05 04:00] VITALS: BP 117/70; TEMP 97.9; O2SAT 97
[2024-08-05 08:08] VITALS: BP 148/84
[2024-08-05] MEDS ORDERED: JANU100T PO (09:47)
[2024-08-05] MEDS ORDERED: LANTINJ4 SC (09:47)
[2024-08-05] MEDS ORDERED: JARD1TAB PO (09:47)
[2024-08-05] MEDS: LEVEMIR (INSULIN DETEMIR) 1 UNITS/0.01ML SC ONE (10:16)
== END 2024-08-05 11:35 | disposition home or self-care (01) ==
LOC: M ED 02:44 → M ED INP 02:45 → M MS4PR 16:20 → M MS5PR 08-04 15:20
PROVIDERS: ADMIT Internal Medicine; ATTEND Internal Medicine
DX: E11.649 Type 2 diabetes mellitus with hypoglycemia without coma (principal); R53.1 Weakness; R63.8 Other symptoms and signs concerning food and fluid intake; R11.0 Nausea; T38.3X5A Adverse effect of insulin and oral hypoglycemic [antidiabetic] drugs, initial encounter; K59.00 Constipation, unspecified; E11.42 Type 2 diabetes mellitus with diabetic polyneuropathy; J18.9 Pneumonia, unspecified organism; J90 Pleural effusion, not elsewhere classified; I10 Essential (primary) hypertension; E78.5 Hyperlipidemia, unspecified; N40.0 Benign prostatic hyperplasia without lower urinary tract symptoms; K21.9 Gastro-esophageal reflux disease without esophagitis; G62.9 Polyneuropathy, unspecified; Z86.711 Personal history of pulmonary embolism; Z86.718 Personal history of other venous thrombosis and embolism; F39 Unspecified mood [affective] disorder; G47.00 Insomnia, unspecified; M06.9 Rheumatoid arthritis, unspecified; L40.9 Psoriasis, unspecified; Z79.899 Other long term (current) drug therapy; Z79.01 Long term (current) use of anticoagulants; Z79.84 Long term (current) use of oral hypoglycemic drugs; Z79.4 Long term (current) use of insulin; Z88.0 Allergy status to penicillin; Z88.2 Allergy status to sulfonamides; Z88.1 Allergy status to other antibiotic agents; Z88.5 Allergy status to narcotic agent; Z88.4 Allergy status to anesthetic agent
CPT/HCPCS: 36415; 71045; 71250; 80053; 83605; 83690; 84145; 85025; 85027; 96374; 96376; 97161; 99285; G0378; J1815; J2405

== ENCOUNTER → 2024-08-12 | Outpatient (CLI) | payer MEDICARE, MEDICAID ==
[~2024-08-12] MED LIST changes: +AMLO2.5T3 PO; +COLA1TAB PO; +JANU100T PO; +LANTINJ4 SC; +PREDOPD OU
== END ==
LOC: M PLAIMG 09:12
DX: J90 Pleural effusion, not elsewhere classified (principal)

== ENCOUNTER → 2024-08-17 | Outpatient (CLI) | payer MEDICARE, MEDICAID ==
[2024-08-17 15:02] LABS: BASO # 0.1 10^3/uL (0.0-0.2); BASO % 0.7 % (0.0-1.0); EOS # 0.4 10^3/uL (0.0-0.5); EOS % 4.3 % (0.0-3.0); HEMATOCRIT 36.6 % (42.0-52.0); HEMOGLOBIN 11.8 g/dl (13.5-17.5); LYMPH # 1.3 10^3/uL (1.5-5.0); LYMPH % 15.7 % (24.0-44.0); MEAN CORPUSCULAR HEMOGLOBIN 28.4 pg (27.0-33.0); MEAN CORPUSCULAR HGB CONC 32.2 g/dl (32.0-36.5); MEAN CORPUSCULAR VOLUME 88.2 fl (80.0-96.0); MONO # 0.8 10^3/uL (0.0-0.8); NEUTROPHILS # 5.8 10^3/uL (1.5-8.5); NEUTROPHILS % 69.7 % (36.0-66.0); PLATELET COUNT, AUTOMATED 335 10^3/uL (150-450); RED BLOOD COUNT 4.15 10^6/uL (4.30-6.10); WHITE BLOOD COUNT 8.4 10^3/uL (4.0-10.0)
[2024-08-17 15:05] LABS: ALBUMIN 3.8 G/DL (3.2-5.2); ALKALINE PHOSPHATASE 83 U/L (40-129); ALT/SGPT 24 U/L (7.0-40); AST/SGOT 17 U/L (<34); BILIRUBIN,TOTAL 0.4 MG/DL (0.3-1.2); BLOOD UREA NITROGEN 19 MG/DL (9-23); CALCIUM LEVEL 10.2 MG/DL (8.3-10.6); CARBON DIOXIDE LEVEL 31 MMOL/L (20-31); CHLORIDE LEVEL 104 MMOL/L (98-107); GLOMERULAR FILTRATION RATE > 60.0 (>49); GLUCOSE, FASTING 131 MG/DL (74-106); POTASSIUM SERUM 5.1 MMOL/L (3.5-5.1); SODIUM LEVEL 142 MMOL/L (136-145)
[2024-08-17 15:55] LABS: HEMOGLOBIN A1c 8.9 % (4.0-6.0)
== END ==
LOC: M PLALAB 12:11
DX: J69.0 Pneumonitis due to inhalation of food and vomit (principal); Z79.899 Other long term (current) drug therapy

== ENCOUNTER → 2024-10-04 | Outpatient (CLI) | payer MEDICARE, MEDICAID | LOC: M RAD 15:12 | PROVIDERS: ATTEND Student in an Organized Health Care Education/Training Program | DX: R42 Dizziness and giddiness (principal); I65.23 Occlusion and stenosis of bilateral carotid arteries; I82.511 Chronic embolism and thrombosis of right femoral vein ==

== ENCOUNTER → 2024-10-04 | Outpatient (CLI) | payer MEDICARE, MEDICAID | LOC: M RAD 15:40 | PROVIDERS: ATTEND Neurological Surgery | DX: I82.401 Acute embolism and thrombosis of unspecified deep veins of right lower extremity (principal) ==

== ENCOUNTER → 2024-10-19 | Outpatient (CLI) | payer MEDICARE, MEDICAID | LOC: M RAD 07:30 | PROVIDERS: ATTEND Internal Medicine Critical Care Medicine | DX: J18.9 Pneumonia, unspecified organism (principal) ==

== ENCOUNTER → 2024-10-21 | Outpatient (CLI) | payer MEDICARE, MEDICAID ==
[2024-10-21 12:54] LABS: BASO # 0.1 10^3/uL (0.0-0.2); BASO % 1.3 % (0.0-1.0); EOS # 0.3 10^3/uL (0.0-0.5); EOS % 4.3 % (0.0-3.0); HEMOGLOBIN 13.9 g/dl (13.5-17.5); LYMPH # 1.3 10^3/uL (1.5-5.0); LYMPH % 16.5 % (24.0-44.0); MEAN CORPUSCULAR HEMOGLOBIN 28.7 pg (27.0-33.0); MEAN CORPUSCULAR HGB CONC 32.3 g/dl (32.0-36.5); MEAN CORPUSCULAR VOLUME 88.7 fl (80.0-96.0); MONO # 0.7 10^3/uL (0.0-0.8); MONO % 8.8 % (2.0-8.0); NEUTROPHILS # 5.5 10^3/uL (1.5-8.5); NEUTROPHILS % 68.7 % (36.0-66.0); PLATELET COUNT, AUTOMATED 302 10^3/uL (150-450); RED BLOOD COUNT 4.85 10^6/uL (4.30-6.10); WHITE BLOOD COUNT 7.9 10^3/uL (4.0-10.0)
[2024-10-21 13:06] LABS: INR 0.98; PARTIAL THROMBOPLASTIN TIME 30.6 SECONDS (24.8-34.2); PROTHROMBIN TIME 13.3 SECONDS (12.5-14.5)
[2024-10-21 13:24] LABS: PTH INTACT 91.2 PG/ML (18.5-88.0)
[2024-10-21 13:26] LABS: FERRITIN 169.1 NG/ML (10.5-307.3)
[2024-10-21 13:28] LABS: HEMOGLOBIN A1c 8.1 % (4.0-6.0)
== END ==
LOC: M PLALAB 09:46
PROVIDERS: ATTEND Family Medicine
DX: E11.9 Type 2 diabetes mellitus without complications (principal); D50.9 Iron deficiency anemia, unspecified; I50.32 Chronic diastolic (congestive) heart failure

== ENCOUNTER → 2024-11-08 | Outpatient (CLI) | payer MEDICARE, MEDICAID | LOC: M PLAIMG 07:11 | PROVIDERS: ATTEND Student in an Organized Health Care Education/Training Program | DX: R91.1 Solitary pulmonary nodule (principal) ==

== ENCOUNTER → 2025-01-11 | Outpatient (CLI) | payer MEDICARE, MEDICAID ==
[~2025-01-11] MED LIST changes: +LIDO1ADH93 TD; -LIDO5DIS41 TD
[2025-01-11 12:48] LABS: ESTIMATED AVERAGE GLUCOSE 200.0 MG/DL (60-110)
[2025-01-11 12:50] LABS: BASO # 0.1 10^3/uL (0.0-0.2); BASO % 1.2 % (0.0-1.0); EOS # 0.4 10^3/uL (0.0-0.5); EOS % 5.1 % (0.0-3.0); LYMPH # 1.1 10^3/uL (1.5-5.0); LYMPH % 15.5 % (24.0-44.0); MONO # 0.6 10^3/uL (0.0-0.8); MONO % 8.3 % (2.0-8.0); NEUTROPHILS # 5.0 10^3/uL (1.5-8.5); NEUTROPHILS % 69.5 % (36.0-66.0); PLATELET COUNT, AUTOMATED 386 10^3/uL (150-450)
[2025-01-11 12:58] LABS: ALT/SGPT 37.0 U/L (7.0-40); AST/SGOT 31.0 U/L (<34); CALCIUM LEVEL 9.3 MG/DL (8.3-10.6); CARBON DIOXIDE LEVEL 30.0 MMOL/L (20-31); CHLORIDE LEVEL 102.0 MMOL/L (98-107); CREATININE FOR GFR 0.98 MG/DL (0.70-1.30); GLOMERULAR FILTRATION RATE 83.5 (>49); IRON (FE) 65.0 UG/DL (65-175); PERCENT SATURATION 23.3 % (19.7-50.0); POTASSIUM SERUM 4.7 MMOL/L (3.5-5.1); SODIUM LEVEL 142.0 MMOL/L (136-145)
== END ==
LOC: M PLALAB 08:07
PROVIDERS: ATTEND Student in an Organized Health Care Education/Training Program
DX: E61.1 Iron deficiency (principal); E11.65 Type 2 diabetes mellitus with hyperglycemia

== ENCOUNTER → 2025-01-15 | Outpatient (REF) | payer MEDICARE, MEDICAID | LOC: M LAB REF 10:51 | PROVIDERS: ATTEND Internal Medicine Gastroenterology | DX: R15.2 Fecal urgency (principal) ==

== ENCOUNTER 2025-01-18 07:30 | Emergency (ER) | payer MEDICARE, MEDICAID ==
[~2025-01-18] VITALS: Ht 175.3 cm; Wt 79.2 kg
[2025-01-18 09:31] LABS: BASO # 0.0 10^3/uL (0.0-0.2); BASO % 0.5 % (0.0-1.0); EOS # 0.2 10^3/uL (0.0-0.5); EOS % 2.1 % (0.0-3.0); LYMPH # 1.0 10^3/uL (1.5-5.0); LYMPH % 12.2 % (24.0-44.0); MONO # 0.7 10^3/uL (0.0-0.8); MONO % 8.4 % (2.0-8.0); NEUTROPHILS # 6.4 10^3/uL (1.5-8.5); NEUTROPHILS % 76.4 % (36.0-66.0); PLATELET COUNT, AUTOMATED 336 10^3/uL (150-450)
[2025-01-18] MEDS ORDERED: ISOVUE-370 76% 100 ML VIAL As Ordered ONE (09:39)
[2025-01-18] MEDS ORDERED: JANU100T PO (09:53)
[2025-01-18] MEDS ORDERED: LANTINJ4 SC ×2 (09:53)
[2025-01-18] MEDS ORDERED: HYDR-643 PO (09:53)
[2025-01-18 09:54] LABS: ALT/SGPT 45.0 U/L (7.0-40); AST/SGOT 27.0 U/L (<34); CALCIUM LEVEL 8.9 MG/DL (8.3-10.6); CARBON DIOXIDE LEVEL 24.0 MMOL/L (20-31); CHLORIDE LEVEL 107.0 MMOL/L (98-107); CREATININE FOR GFR 0.95 MG/DL (0.70-1.30); GLOMERULAR FILTRATION RATE 86.6 (>49); POTASSIUM SERUM 4.4 MMOL/L (3.5-5.1); SODIUM LEVEL 143.0 MMOL/L (136-145)
[2025-01-18] MEDS ORDERED: HOME MED LIST COMPLETE! XX SCH (09:55)
[2025-01-18 10:15] VITALS: TEMP 98.5
[2025-01-18 10:36] VITALS: BP 127/63; O2SAT 100
== END 2025-01-18 10:46 | disposition home or self-care (01) ==
LOC: M ED 07:30
DX: A08.39 Other viral enteritis (principal); N20.0 Calculus of kidney; E11.9 Type 2 diabetes mellitus without complications; I10 Essential (primary) hypertension; K64.9 Unspecified hemorrhoids; K58.9 Irritable bowel syndrome, unspecified; Z88.0 Allergy status to penicillin; Z88.1 Allergy status to other antibiotic agents; Z88.2 Allergy status to sulfonamides; Z88.5 Allergy status to narcotic agent; Z79.1 Long term (current) use of non-steroidal anti-inflammatories (NSAID); Z79.4 Long term (current) use of insulin; Z79.899 Other long term (current) drug therapy
CPT/HCPCS: 36415; 74177; 80047; 80048; 80076; 83690; 85025; 87507; 99284; Q9967

== ENCOUNTER → 2025-02-03 | Outpatient (CLI) | payer MEDICARE, MEDICAID | LOC: M RAD 13:54 | PROVIDERS: ATTEND Student in an Organized Health Care Education/Training Program | DX: Z01.818 Encounter for other preprocedural examination (principal); I82.501 Chronic embolism and thrombosis of unspecified deep veins of right lower extremity; R09.89 Other specified symptoms and signs involving the circulatory and respiratory systems ==

== ENCOUNTER → 2025-02-16 | Outpatient (REF) | payer MEDICARE, MEDICAID | LOC: M SFHCPLAZ 10:27 | PROVIDERS: ATTEND Family Medicine | DX: Z53.9 Procedure and treatment not carried out, unspecified reason (principal) ==

== ENCOUNTER → 2025-02-16 | Outpatient (CLI) | payer MEDICARE, MEDICAID ==
[2025-02-16 15:12] LABS: BASO # 0.1 10^3/uL (0.0-0.2); BASO % 1.2 % (0.0-1.0); EOS # 0.5 10^3/uL (0.0-0.5); EOS % 6.0 % (0.0-3.0); LYMPH # 1.3 10^3/uL (1.5-5.0); LYMPH % 17.0 % (24.0-44.0); MONO # 0.6 10^3/uL (0.0-0.8); MONO % 8.3 % (2.0-8.0); NEUTROPHILS # 5.1 10^3/uL (1.5-8.5); NEUTROPHILS % 67.0 % (36.0-66.0); PLATELET COUNT, AUTOMATED 335 10^3/uL (150-450)
[2025-02-16 15:21] LABS: INR 0.98
[2025-02-16 15:43] LABS: CALCIUM LEVEL 9.3 MG/DL (8.3-10.6); CARBON DIOXIDE LEVEL 30.0 MMOL/L (20-31); CHLORIDE LEVEL 103.0 MMOL/L (98-107); CREATININE FOR GFR 0.99 MG/DL (0.70-1.30); GLOMERULAR FILTRATION RATE 82.5 (>49); POTASSIUM SERUM 4.5 MMOL/L (3.5-5.1); SODIUM LEVEL 141.0 MMOL/L (136-145)
[2025-02-16 16:20] LABS: ESTIMATED AVERAGE GLUCOSE 174.0 MG/DL (60-110)
== END ==
LOC: M PLALAB 10:39
DX: Z01.818 Encounter for other preprocedural examination (principal); Z79.899 Other long term (current) drug therapy

== ENCOUNTER → 2025-02-18 | Outpatient (REF) | payer MEDICARE, MEDICAID | LOC: M SFHCPLAZ 09:56 | DX: Z53.9 Procedure and treatment not carried out, unspecified reason (principal) ==

== ENCOUNTER → 2025-03-04 | Outpatient (CLI) | payer MEDICARE, MEDICAID ==
[~2025-03-04] MED LIST changes: -ZOLP5TAB PO; +ZOLP5TAB9 PO
[2025-03-04 13:48] LABS: INR 0.93
== END ==
LOC: M LAB 13:04
DX: Z01.818 Encounter for other preprocedural examination (principal)

== ENCOUNTER 2025-03-18 21:52 | Emergency (ER) | payer MEDICARE, MEDICAID ==
[~2025-03-18] VITALS: Ht 177.8 cm; Wt 79.0 kg
[2025-03-18 22:08] VITALS: TEMP 98.4
[2025-03-18] MEDS: D5W/0.45% SODIUM CHLORIDE 1,000 ML IV SCH (23:09)
[2025-03-19 06:30] VITALS: BP 117/65; O2SAT 99
== END 2025-03-19 07:22 | disposition home or self-care (01) ==
LOC: M ED 21:52
DX: T38.3X1A Poisoning by insulin and oral hypoglycemic [antidiabetic] drugs, accidental (unintentional), initial encounter (principal); E11.9 Type 2 diabetes mellitus without complications; I10 Essential (primary) hypertension; K21.9 Gastro-esophageal reflux disease without esophagitis; E78.5 Hyperlipidemia, unspecified; Z88.0 Allergy status to penicillin; Z88.1 Allergy status to other antibiotic agents; Z88.2 Allergy status to sulfonamides; Z88.5 Allergy status to narcotic agent; Z79.1 Long term (current) use of non-steroidal anti-inflammatories (NSAID); Z79.4 Long term (current) use of insulin; Z79.899 Other long term (current) drug therapy

== ENCOUNTER → 2025-04-09 | Outpatient (CLI) | payer MEDICARE, MEDICAID ==
[2025-04-09 10:05] LABS: BASO # 0.1 10^3/uL (0.0-0.2); BASO % 1.4 % (0.0-1.0); EOS # 0.3 10^3/uL (0.0-0.5); EOS % 5.9 % (0.0-3.0); LYMPH # 0.8 10^3/uL (1.5-5.0); LYMPH % 14.0 % (24.0-44.0); MONO # 0.4 10^3/uL (0.0-0.8); MONO % 6.9 % (2.0-8.0); NEUTROPHILS # 4.1 10^3/uL (1.5-8.5); NEUTROPHILS % 71.6 % (36.0-66.0); PLATELET COUNT, AUTOMATED 283 10^3/uL (150-450)
[2025-04-09 10:33] LABS: ALT/SGPT 31 U/L (7.0-40); AST/SGOT 20 U/L (<34); C REACTIVE PROTEIN QUANTITATIV < 0.50 MG/DL (<1.0); CALCIUM LEVEL 9.0 MG/DL (8.3-10.6); CARBON DIOXIDE LEVEL 28 MMOL/L (20-31); CHLORIDE LEVEL 104 MMOL/L (98-107); CREATININE FOR GFR 0.74 MG/DL (0.70-1.30); GLOMERULAR FILTRATION RATE > 90.0 (>42); POTASSIUM SERUM 3.6 MMOL/L (3.5-5.1); SODIUM LEVEL 142 MMOL/L (136-145)
== END ==
LOC: M LAB 08:50
PROVIDERS: ATTEND Student in an Organized Health Care Education/Training Program
DX: Z00.00 Encounter for general adult medical examination without abnormal findings (principal); T81.49XA Infection following a procedure, other surgical site, initial encounter; R07.89 Other chest pain; R20.2 Paresthesia of skin; F51.04 Psychophysiologic insomnia; E11.9 Type 2 diabetes mellitus without complications; G89.4 Chronic pain syndrome; Z87.19 Personal history of other diseases of the digestive system; I10 Essential (primary) hypertension; K21.9 Gastro-esophageal reflux disease without esophagitis; E78.5 Hyperlipidemia, unspecified; K59.09 Other constipation; Z98.890 Other specified postprocedural states; R60.0 Localized edema; N40.0 Benign prostatic hyperplasia without lower urinary tract symptoms; J30.2 Other seasonal allergic rhinitis; F32.A Depression, unspecified; M45.7 Ankylosing spondylitis of lumbosacral region; L29.9 Pruritus, unspecified; D64.9 Anemia, unspecified; F41.1 Generalized anxiety disorder; M46.22 Osteomyelitis of vertebra, cervical region; Y83.8 Other surgical procedures as the cause of abnormal reaction of the patient, or of later complication, without mention of misadventure at the time of the procedure

== ENCOUNTER → 2025-04-29 | Outpatient (CLI) | payer MEDICARE, MEDICAID ==
[~2025-04-29] MED LIST changes: -ROSU10TA61; -ROSU10TA61 PO; +ROSU10TA90; +ROSU10TA90 PO
[2025-04-29 13:35] LABS: BASO # 0.1 10^3/uL (0.0-0.2); BASO % 1.5 % (0.0-1.0); EOS # 0.3 10^3/uL (0.0-0.5); EOS % 5.8 % (0.0-3.0); LYMPH # 1.0 10^3/uL (1.5-5.0); LYMPH % 17.7 % (24.0-44.0); MONO # 0.6 10^3/uL (0.0-0.8); MONO % 10.7 % (2.0-8.0); NEUTROPHILS # 3.8 10^3/uL (1.5-8.5); NEUTROPHILS % 64.1 % (36.0-66.0); PLATELET COUNT, AUTOMATED 359 10^3/uL (150-450)
[2025-04-29 14:10] LABS: LDH LACTATE DEHYDROGENASE 180 U/L (120-246)
[2025-04-29 14:12] LABS: IMMUNOGLOBULIN E 43.2 IU/ML (0-378); VITAMIN B12 LEVEL 464 PG/ML (211-911)
[2025-04-29 14:42] LABS: HIV 1&2 SCREEN NEGATIVE (NEGATIVE)
== END ==
LOC: M PLALAB 11:45
PROVIDERS: ATTEND Student in an Organized Health Care Education/Training Program
DX: L29.9 Pruritus, unspecified (principal); T81.49XA Infection following a procedure, other surgical site, initial encounter

== ENCOUNTER → 2025-05-10 | Outpatient (CLI) | payer MEDICARE, MEDICAID ==
[2025-05-10 15:09] LABS: BASO # 0.1 10^3/uL (0.0-0.2); BASO % 1.0 % (0.0-1.0); EOS # 0.3 10^3/uL (0.0-0.5); EOS % 3.6 % (0.0-3.0); LYMPH # 1.3 10^3/uL (1.5-5.0); LYMPH % 16.4 % (24.0-44.0); MONO # 0.8 10^3/uL (0.0-0.8); MONO % 10.5 % (2.0-8.0); NEUTROPHILS # 5.3 10^3/uL (1.5-8.5); NEUTROPHILS % 68.2 % (36.0-66.0); PLATELET COUNT, AUTOMATED 348 10^3/uL (150-450)
== END ==
LOC: M PLAIMG 11:43
PROVIDERS: ATTEND Student in an Organized Health Care Education/Training Program
DX: J06.9 Acute upper respiratory infection, unspecified (principal)

== ENCOUNTER → 2025-06-29 | Outpatient (CLI) | payer MEDICARE, MEDICAID ==
[2025-06-29 14:02] LABS: PLATELET COUNT, AUTOMATED 394 10^3/uL (150-450)
[2025-06-29 14:11] LABS: C REACTIVE PROTEIN QUANTITATIV 0.60 MG/DL (<1.0)
[2025-06-29 14:50] LABS: ALT/SGPT 22 U/L (7.0-40); AST/SGOT 13 U/L (<34); CALCIUM LEVEL 9.4 MG/DL (8.3-10.6); CARBON DIOXIDE LEVEL 28 MMOL/L (20-31); CHLORIDE LEVEL 106 MMOL/L (98-107); CREATININE FOR GFR 0.87 MG/DL (0.70-1.30); GLOMERULAR FILTRATION RATE > 90.0 (>42); MAGNESIUM LEVEL 1.8 MG/DL (1.8-2.4); POTASSIUM SERUM 2.9 MMOL/L (3.5-5.1); SODIUM LEVEL 146 MMOL/L (136-145)
== END ==
LOC: M PLALAB 09:21
PROVIDERS: ATTEND Internal Medicine Gastroenterology
DX: K58.9 Irritable bowel syndrome, unspecified (principal); R19.5 Other fecal abnormalities; K29.00 Acute gastritis without bleeding; R19.7 Diarrhea, unspecified